=== PATIENT | female | born 1945 | race Caucasian/White ===

== ENCOUNTER 2018-11-12 15:20 | Inpatient (IN) ==
[2018-11-12] MEDS ORDERED: IOPAMIDOL 100 ML BOTTLE IV ONE (15:21)
--- NOTE | 2018-11-12 15:52 | XRay Report ---
INDICATION: Dyspnea TECHNIQUE: AP chest x-ray,portable semiupright COMPARISON: There is chest x-rays dated 10/12/2018, 06/27/2018, 06/01/2018 FINDINGS:Left lung base is poorly visualized, probably secondary to overlying soft tissues and AP portable semierect upright positioning and technique. Left basilar infiltrate is not excluded. Routine PA and lateral chest x-ray recommended when clinically appropriate. Lungs are otherwise negative. Heart size and vascularity are normal. Heart and mediastinum are negative. IMPRESSION: 1. Poor visualization of left base. Follow-up PA and lateral chest x-ray recommended when clinically appropriate 2. Otherwise negative AP chest x-ray Interpreted and Authenticated by: Rob Singh 11/12/18
[2018-11-12 16:40] LABS: Appearance,Urine CLOUDY; Bacteria,Urine MOD /hpf (0); Bilirubin,Urine NEG (NEG); Color,Urine YELLOW; Glucose,Urine (UA) >=500 mg/dL (NEG); Leukocyte Esterase,Urine 500 /uL (NEG); Mucus,Urine FEW /hpf (0); Protein,Urine 100 mg/dL (NEG); Specific Gravity,Urine 1.011 (1.000-1.035); Urine Blood 0.2 mg/dL (<0.03); Urine Hyaline Cast 6 /lpf (0-2); Urine RBC 8 /hpf (0-1); Urine Squamous Epithelial Cell 1 /hpf (0-4); Urine WBC > 182 /hpf (0-4); Urobilinogen,Urine NEG (NEG)
[2018-11-12] MEDS ORDERED: CIPROFLOXACIN 400 MG/200 ML BAG IV ONE (16:42)
--- NOTE | 2018-11-12 16:44 | Emergency Department Note ---
Fever HPI - General Chief Complaint: Shortness of Breath/Dyspnea Stated Complaint: Hypoxia, Fever Time Seen by Provider: 11/12/18 16:05 Source: EMS Mode of arrival: EMS Limitations: altered mental status, physical limitation - History of Present Illness HPI Narrative: 73-year-old female presents with altered LOC, hypoxia, shortness of breath, intermittent abdominal pain. Onset yesterday possibly however patient is extremely poor historian, confused, difficult to get information from. EMS reports that they were called to the home after the patient reported being sick for a week. Patient denies being started on new in any new medications at [facility] however is confused and the story is frequently changing and very hard to follow. - Related Data Home Medications Medication Instructions Recorded Confirmed lorazepam 1 mg tablet 1 mg PO QHS tab 08/02/18 10/12/18 Previous Rx's Medication Instructions Recorded amlodipine 5 mg tablet 5 mg PO QDAY #90 tab 08/02/18 citalopram 20 mg tablet 20 mg PO QDAY #90 tab 08/02/18 clopidogrel 75 mg tablet 75 mg PO QDAY #90 tab 08/02/18 dexlansoprazole 30 mg 30 mg PO QDAY #90 cap 08/02/18 capsule,biphase delayed release glipizide 10 mg tablet 10 mg PO QDAY #90 tab 08/02/18 loratadine 10 mg tablet 10 mg PO QDAY PRN #90 tab 08/02/18 losartan 50 mg tablet 50 mg PO QDAY #90 tab 08/02/18 sennosides 8.6 mg tablet 8.6 mg PO QHS PRN #90 tab 08/02/18 simvastatin 10 mg tablet 10 mg PO QHS #90 tab 08/02/18 ferrous sulfate 325 mg (65 mg 325 mg PO QDAY #90 tab 09/10/18 iron) tablet methocarbamol 500 mg tablet See Rx Instructions PO Q6H PRN #30 09/19/18 tab nitrofurantoin 100 mg PO BID #20 cap 10/08/18 monohydrate/macrocrystals 100 mg capsule pregabalin 300 mg capsule 300 mg PO BID #60 cap 10/11/18 albuterol sulfate HFA 90 2 puff INHALATION Q6H PRN #8.5 g 10/12/18 mcg/actuation aerosol inhaler trazodone 150 mg tablet 300 mg PO QHS #180 tab 10/18/18 tramadol 50 mg tablet 100 mg PO TID PRN #180 tab 10/31/18 atenolol 25 mg tablet 12.5 mg PO QHS #45 tab 11/12/18 Allergies Allergy/AdvReac Type Severity Reaction Status Date / Time aspirin Allergy Unknown unknown Verified 11/12/18 15:27 celecoxib [From Celebrex] Allergy Unknown unknown Verified 11/12/18 15:27 indomethacin Allergy Unknown unknown Verified 11/12/18 15:27 lisinopril Allergy Unknown unknown Verified 11/12/18 15:27 nabumetone [From Relafen] Allergy Unknown unknown Verified 11/12/18 15:27 oxybutynin Allergy Unknown unknown Verified 11/12/18 15:27 Review of Systems All systems ED: reviewed and negative except as stated. Fever PMH - Past Medical History [facility] Narrative: Medical History (Last Reviewed 10/12/18 @ 11:49 by Gladys Hair PA-C) Urge incontinence of urine (Chronic) Urinary incontinence (Chronic) Dermatographia (Chronic) Paresthesia (Chronic) Insomnia (Chronic) GERD (gastroesophageal reflux disease) (Chronic) Paroxysmal supraventricular tachycardia (Chronic) Hyperlipidemia (Chronic) Dermatitis (Chronic) Perleche (Chronic) Seborrheic keratosis (Chronic) Anxiety disorder (Chronic) Conversion disorder (Chronic) Developmental delay (Chronic) Osteoarthritis (Chronic) Lumbar radiculopathy (Chronic) Onychomycosis (Chronic) PVD (peripheral vascular disease) (Chronic) Diabetic peripheral neuropathy (Chronic) Diabetes mellitus, type II (Chronic) Rectal bleeding (Chronic) Mastalgia (Chronic) Patellar tendon rupture (Chronic) Foot deformity (Chronic) Tendinitis (Chronic) Menopausal syndrome (Chronic) Overactive bladder (Chronic) Past Surgical History (Last Reviewed 10/12/18 @ 11:49 by Gladys Hair PA-C) History of bilateral knee replacement (Chronic) History of knee surgery (Acute) Medical history: Reports: DM, GERD, hyperlipidemia, arthritis, hypertension, other, CVA, obesity Psychiatric history: Reports: anxiety, depression - Social History smoking status: Never smoker Alcohol use: Reports: None Drug use: Reports: none. Denies: marijuana Physical Exam Limitations: altered mental status, physical limitation General appearance: alert, in no apparent distress Head: atraumatic, normocephalic, normal inspection Eye: Present: normal appearance, PERRL. Absent: conjunctival injection ENT: normal exam, normal oropharynx, mucous membranes moist, TM's normal bilaterally, normal external ear exam Neck: Present: normal inspection, trachea midline. Absent: tenderness, lymphadenopathy Chest: Present: symmetric chest wall rise Respiratory: Present: wheezes (Expiratory wheezing and diminished in the bases bilaterally), other (Oxygen saturations were 70% on EMS arrival). Absent: respiratory distress, rales/crackles, accessory muscle use Cardiovascular: Present: regular rate, normal heart sounds External: Present: other (Please see urinanalysis) Neurological: Present: alert. Absent: oriented X3 (Not alert to person, place, time, or situation, pleasantly confused) Psychiatric: Present: normal affect, normal mood Skin: Present: warm, dry, intact, normal color. Absent: rash, cyanosis, diaphoresis, erythema Course Course Narrative: @[address] Suazo, hopsitalist, who agrees to admit this patient however we are awaiting CT report. Also started Zosyn. Vital Signs Temperature 101.2 F H 11/12/18 15:22 Pulse Rate 86 11/12/18 15:22 Respiratory Rate 24 H 11/12/18 15:22 Blood Pressure 126/84 11/12/18 15:22 Pulse Oximetry (%) 88 L 11/12/18 15:22 Temperature 101.2 F H 11/12/18 20:08 Pulse Rate 68 11/12/18 20:08 Respiratory Rate 17 11/12/18 20:08 Blood Pressure 106/44 11/12/18 20:08 Pulse Oximetry (%) 95 11/12/18 20:08 Fever - Lab Data Lab results reviewed: Yes I reviewed the patient's lab results. Result diagrams: 11/12/18 17:37 11/12/18 15:55 Lab Results 11/12/18 11/12/18 11/12/18 Range/Units 15:55 15:55 15:55 WBC TNP RBC TNP Hgb TNP Hct TNP POC Hct (36.0-48.0) % MCV TNP MCH TNP MCHC TNP RDW TNP Plt Count TNP MPV TNP Total Counted TNP Seg Neutrophils % TNP Band Neutrophils % TNP Lymphocytes % TNP Monocytes % (Manual) TNP Eosinophils % (Manual) TNP Basophils % (Manual) TNP Metamyelocytes % TNP Myelocytes % TNP Promyelocytes % TNP Nucleated RBCs TNP Differential Comment TNP WBC Morphology TNP Hypersegmented Polys TNP Vacuolated Neuts TNP Immature Lymphocytes TNP Plasmacytoid Lymphs TNP Reactive Lymphocytes TNP Vacuolated Monocytes TNP Blast Cells TNP Plasma Cells TNP Smudge Cells TNP Pyknotic Cells TNP Other Cell Type TNP Toxic Granulation TNP Dohle Bodies TNP Pelger-Huet Anomaly TNP Radha Rods TNP WBC Morphology Comment Tnpt Platelet Estimate TNP RBC Morphology TNP Polychromasia TNP Hypochromasia TNP Poikilocytosis TNP Basophilic Stippling TNP Anisocytosis TNP Microcytosis TNP Macrocytosis TNP Spherocytes TNP Pappenheimer Bodies TNP Target Cells TNP Tear Drop Cells TNP Ovalocytes TNP Stomatocytes TNP Helmet Cells TNP [place] Bodies TNP [place] Cells TNP Acanthocytes (Spur) TNP Rouleaux TNP RBC Fragments TNP VBG Lactic Acid 3.1 H (0.5-2.0) mmol/L POC Sodium (133-145) mmol/L Sodium 140 (133-145) mmol/L POC Potassium (3.3-5.1) mmol/L Potassium 4.2 (3.3-5.1) mmol/L POC Chloride (96-108) mmol/L Chloride 103 (96-108) mmol/L Carbon Dioxide 26 (22-30) mmol/L POC Total CO2 (22-30) mmol/L Anion Gap 11.0 (8-16) POC BUN (8-23) mg/dl BUN 28 H (8-23) mg/dl Creatinine 1.1 (0.6-1.1) mg/dl POC Creatinine (0.6-1.1) mg/dl GFR Calculation 50 Glucose 244 H (70-105) mg/dL POC Glucose (70-105) mg/dL Calcium 9.7 (8.6-10.4) mg/dl POC WB Ioniz Calcium (1.16-1.32) mmol/L Total Bilirubin 0.9 (0.0-1.0) mg/dL AST 18 (0-37) U/l ALT 14 (0-40) U/l Alkaline Phosphatase 121 H (39-117) U/L Troponin T (0-0.03) ng/ml Total Protein 7.4 (5.9-8.4) gm/dL Albumin 3.7 (3.2-5.2) gm/dL Globulin 3.7 (2.2-3.7) gm/dL Albumin/Globulin Ratio 1.0 (1.0-2.3) Urine Color Urine Appearance Urine pH (5.0-9.0) Ur Specific [place] (1.000-1.035) Urine Protein (NEG) mg/dL Urine Glucose (UA) (NEG) mg/dL Urine Ketones (NEG) mg/dL Urine Occult Blood (<0.03) mg/dL Urine Nitrate (NEG) Urine Bilirubin (NEG) mg/dL Urine Urobilinogen (NEG) mg/dL Ur Leukocyte Esterase (NEG) /uL Urine RBC (0-1) /hpf Urine WBC (0-4) /hpf Ur Squamous Epith Cells (0-4) /hpf Urine Bacteria (0) /hpf Hyaline Casts (0-2) /lpf Urine Mucus (0) /hpf Ur Culture Indicated? 11/12/18 11/12/18 11/12/18 Range/Units 16:05 16:50 17:37 WBC RBC Hgb Hct POC Hct 32.0 L (36.0-48.0) % MCV MCH MCHC RDW Plt Count MPV Total Counted Seg Neutrophils % Band Neutrophils % Lymphocytes % Monocytes % (Manual) Eosinophils % (Manual) Basophils % (Manual) Metamyelocytes % Myelocytes % Promyelocytes % Nucleated RBCs Differential Comment WBC Morphology Hypersegmented Polys Vacuolated Neuts Immature Lymphocytes Plasmacytoid Lymphs Reactive Lymphocytes Vacuolated Monocytes Blast Cells Plasma Cells Smudge Cells Pyknotic Cells Other Cell Type Toxic Granulation Dohle Bodies Pelger-Huet Anomaly Radha Rods WBC Morphology Comment Platelet Estimate RBC Morphology Polychromasia Hypochromasia Poikilocytosis Basophilic Stippling Anisocytosis Microcytosis Macrocytosis Spherocytes Pappenheimer Bodies Target Cells Tear Drop Cells Ovalocytes Stomatocytes Helmet Cells [place] Bodies Maria [place] Cells Acanthocytes (Spur) Rouleaux RBC Fragments VBG Lactic Acid (0.5-2.0) mmol/L POC Sodium 141 (133-145) mmol/L Sodium (133-145) mmol/L POC Potassium 3.8 (3.3-5.1) mmol/L Potassium (3.3-5.1) mmol/L POC Chloride 109 H (96-108) mmol/L Chloride (96-108) mmol/L Carbon Dioxide (22-30) mmol/L POC Total CO2 22 (22-30) mmol/L Anion Gap (8-16) POC BUN 28 H (8-23) mg/dl BUN (8-23) mg/dl Creatinine (0.6-1.1) mg/dl POC Creatinine 0.9 (0.6-1.1) mg/dl GFR Calculation Glucose (70-105) mg/dL POC Glucose 219 H (70-105) mg/dL Calcium (8.6-10.4) mg/dl POC WB Ioniz Calcium 1.05 L (1.16-1.32) mmol/L Total Bilirubin (0.0-1.0) mg/dL AST (0-37) U/l ALT (0-40) U/l Alkaline Phosphatase (39-117) U/L Troponin T < 0.01 (0-0.03) ng/ml Total Protein (5.9-8.4) gm/dL Albumin (3.2-5.2) gm/dL Globulin (2.2-3.7) gm/dL Albumin/Globulin Ratio (1.0-2.3) Urine Color Yellow Urine Appearance Cloudy Urine pH 5.0 (5.0-9.0) Ur Specific [place] 1.011 (1.000-1.035) Urine Protein 100 A (NEG) mg/dL Urine Glucose (UA) >=500 A (NEG) mg/dL Urine Ketones Neg (NEG) mg/dL Urine Occult Blood 0.2 A (<0.03) mg/dL Urine Nitrate Pos A (NEG) Urine Bilirubin Neg (NEG) mg/dL Urine Urobilinogen Neg (NEG) mg/dL Ur Leukocyte Esterase 500 A (NEG) /uL Urine RBC 8 H (0-1) /hpf Urine WBC > 182 H (0-4) /hpf Ur Squamous Epith Cells 1 (0-4) /hpf Urine Bacteria Mod A (0) /hpf Hyaline Casts 6 H (0-2) /lpf Urine Mucus Few (0) /hpf Ur Culture Indicated? Yes 11/12/18 Range/Units 17:37 WBC 6.4 RBC 3.63 L Hgb 10.2 L Hct 31.7 L POC Hct (36.0-48.0) % MCV 87.2 MCH 28.2 MCHC 32.3 RDW 15.2 H Plt Count 111 L MPV 10.6 H Total Counted 100 Seg Neutrophils % 80 H Band Neutrophils % 8 Lymphocytes % 8 L Monocytes % (Manual) 4 Eosinophils % (Manual) Basophils % (Manual) Metamyelocytes % Myelocytes % Promyelocytes % Nucleated RBCs Differential Comment WBC Morphology Hypersegmented Polys Vacuolated Neuts Immature Lymphocytes Plasmacytoid Lymphs Reactive Lymphocytes Vacuolated Monocytes Blast Cells Plasma Cells Smudge Cells Pyknotic Cells Other Cell Type Toxic Granulation Dohle Bodies Pelger-Huet Anomaly Radha Rods WBC Morphology Comment Platelet Estimate Decreased RBC Morphology Normal Polychromasia Hypochromasia Poikilocytosis Basophilic Stippling Anisocytosis Microcytosis Macrocytosis Spherocytes Pappenheimer Bodies Target Cells Tear Drop Cells Ovalocytes Stomatocytes Helmet Cells [place] Bodies Maria [place] Cells Acanthocytes (Spur) Rouleaux RBC Fragments VBG Lactic Acid (0.5-2.0) mmol/L POC Sodium (133-145) mmol/L Sodium (133-145) mmol/L POC Potassium (3.3-5.1) mmol/L Potassium (3.3-5.1) mmol/L POC Chloride (96-108) mmol/L Chloride (96-108) mmol/L Carbon Dioxide (22-30) mmol/L POC Total CO2 (22-30) mmol/L Anion Gap (8-16) POC BUN (8-23) mg/dl BUN (8-23) mg/dl Creatinine (0.6-1.1) mg/dl POC Creatinine (0.6-1.1) mg/dl GFR Calculation Glucose (70-105) mg/dL POC Glucose (70-105) mg/dL Calcium (8.6-10.4) mg/dl POC WB Ioniz Calcium (1.16-1.32) mmol/L Total Bilirubin (0.0-1.0) mg/dL AST (0-37) U/l ALT (0-40) U/l Alkaline Phosphatase (39-117) U/L Troponin T (0-0.03) ng/ml Total Protein (5.9-8.4) gm/dL Albumin (3.2-5.2) gm/dL Globulin (2.2-3.7) gm/dL Albumin/Globulin Ratio (1.0-2.3) Urine Color Urine Appearance Urine pH (5.0-9.0) Ur Specific [place] (1.000-1.035) Urine Protein (NEG) mg/dL Urine Glucose (UA) (NEG) mg/dL Urine Ketones (NEG) mg/dL Urine Occult Blood (<0.03) mg/dL Urine Nitrate (NEG) Urine Bilirubin (NEG) mg/dL Urine Urobilinogen (NEG) mg/dL Ur Leukocyte Esterase (NEG) /uL Urine RBC (0-1) /hpf Urine WBC (0-4) /hpf Ur Squamous Epith Cells (0-4) /hpf Urine Bacteria (0) /hpf Hyaline Casts (0-2) /lpf Urine Mucus (0) /hpf Ur Culture Indicated? - Radiology Data Radiology results reviewed: Yes I reviewed the patient's radiology results. Disposition Pt seen by CHEF & OWNER/PA only: No Clinical Impression: UTI (urinary tract infection), Hypoxia, SOB (shortness of breath), Chest pain Disposition: Xfer As Inpt ([facility]) Condition: Fair Time of Disposition: 21:45
[2018-11-12 16:45] LABS: ALT/SGPT 14 U/l (0-40); Albumin 3.7 gm/dL (3.2-5.2); Alkaline Phosphatase 121 U/L (39-117); Blood Urea Nitrogen 28 mg/dl (8-23)
[2018-11-12] MEDS ORDERED: 0.9 % SODIUM CHLORIDE 1,000 ML IV ONE ×3 (17:54→18:13)
[2018-11-12] MEDS ORDERED: PIPERACILLIN SODIUM/TAZOBACTAM 3.375 GM in DEXTROSE 5% IN WATER 50 ML IV ONE (17:56)
[2018-11-12] MEDS ORDERED: VANCOMYCIN PER PHARMACY IV ONE ×2 (18:25→20:33)
[2018-11-12 18:27] LABS: Mean Cell Volume 87.2 fL (80.0-100.0); Mean Corpuscular HGB Conc 32.3 g/dL (31.0-36.0); Platelet Count 111 K/mcL (140-440); RBC 3.63 M/mcL (4.00-5.20); Red Cell Distribution Width 15.2 % (11.5-14.5)
[2018-11-12] MEDS ORDERED: 0.9 % SODIUM CHLORIDE 250 ML IV SCH (18:30)
[2018-11-12] MEDS ORDERED: NOREPINEPHRINE BITARTRATE 8 MG in 0.9 % SODIUM CHLORIDE 242 ML IV SCH (18:30)
[2018-11-12 18:59] LABS: Band Neutrophils % 8 % (0-10); Lymphocytes % 8 % (15-49); Monocytes % (Manual) 4 % (1-12); Platelet Estimate DECREASED (NORMAL); RBC Morphology NORMAL (NORMAL); Segmented Neutrophils % 80 % (38-78)
--- NOTE | 2018-11-12 19:16 | Cat Scan Report ---
CLINICAL INFORMATION: Hypoxia. Elevated lactic acid. Abdominal pain. TECHNIQUE: Axial images through the chest, abdomen, pelvis. 90 mL intravenous contrast material injected. Oral contrast material was not administered. COMPARISON: Previous chest x-ray dated 11/12/2018 and 10/12/2018. Previous chest CT scan dated 03/30/2018. Previous abdominal CT scan dated 06/27/2018. FINDINGS: Chest: Suboptimal breath-hold with some motion artifact. Mild groundglass infiltrate in the left lung apex. Findings are nonspecific. Small focal area of pneumonia is suspected. Lungs are otherwise negative. No parenchymal consolidation. No pulmonary parenchymal mass. No definite bronchiectasis. There is no honeycombing or diverticular change. No significant pleural effusion. There is no pericardial effusion. No pathologic hilar or mediastinal lymphadenopathy. No axillary adenopathy. Thoracic spine is negative. No compression deformities. No lytic lesions. No sternal or rib lesions. Abdomen, pelvis: Suboptimal evaluation as the arms are down at the patient's side causing streak artifact. Dilated right renal pelvis and proximal right hydroureter. There is mild ureteral wall enhancement and periureteral infiltration. No detectable ureteral calculus. There is no bladder stone. Urinary bladder is not distended and there is a Posey catheter in place. Findings are suspicious for recent passage of a ureteral calculus although there is no nonobstructing calculus identified within the right kidney on prior examination. No left hydronephrosis or hydroureter. No solid or cystic renal mass. No CT evidence for pyelonephritis. There is mild right perinephric stranding which is also a new finding since previous examination. Negative liver. No focal intrahepatic abnormality. There are surgical clips in the gallbladder fossa. No dilated bile ducts. Pancreas is negative. No pancreatic mass. No peripancreatic abnormality. Negative spleen. No splenomegaly. Negative adrenal glands. There is contrast material or noncontrast increased fecal density within the colon. No detectable colonic mass. No diverticulitis. Negative appendix. No evidence for appendicitis. Small bowel is negative. There is no mechanical small bowel obstruction No retroperitoneal or mesenteric adenopathy. Densely calcified abdominal aorta. No abdominal aortic aneurysm. There is calcification of the origin of the superior mesenteric artery but no stenosis. There is calcification at the origin of the celiac trunk and probable hemodynamically significant stenosis. Superior mesenteric vein and portal vein are patent and normal. Uterus is not identified. There is no adnexal mass. No intra-abdominal abscess. No free intraperitoneal fluid. No pneumoperitoneum. No biliary or portal venous gas. No pneumatosis. No lumbar compression fractures. No sacral or pelvic fracture. No lytic lesion. No inguinal or abdominal wall hernia. No abdominal wall fluid collection. IMPRESSION: 1. Dilated right renal pelvis and proximal right ureter. There is ureteral wall enhancement and mild periureteral infiltration. Recent passage of a right ureteral stone is possible. 2. Mild groundglass infiltrate in the left lung apex. Small focus of pneumonia suspected 3. Previous cholecystectomy 4. No intra-abdominal abscess Interpreted and Authenticated by: Rob Singh 11/12/18
--- NOTE | 2018-11-12 19:17 | Internal Med History&Physical ---
Medical - H&P: [facility] Patient information: Note initiated : 11/12/18 at 7:14 pm Service Date, if different from initiated Date: [] Patient: Izzy Casey a 73 y/o F admitted on for Hypoxia, Fever. Chief Complaint: [] Chief complaint: AMS, hypotention History of present illness: Ms. Casey is a 73 year old F who lives alone with the help of caregiver provided to [employer]. By history patient is developmental delayed. Over the last few days patient has been getting progressively weak fatigued and unable to function. Today she she was brought into the ER with symptoms of altered mental status, confusion and gradual progression of her weakness over the last 1 week. Most of the history is obtained from review of medical records. Patient is unable to provide any history. No family members are present. Initial workup was significant for septic shock secondary to significant pyuria. Patient was started on crystalloid/broad antibiotics after cultures were drawn. He was initiated on vasopressors. Hospitalist service was consulted. Initial venous lactate is over 3. At the time of evaluation patient is barely able to open eyes. She is very drowsy. Her initial sofa score is 3. Te-Moak score 16. Patient will be admitted to ICU until further history could be obtained, she has been started on broad antibiotic coverage/pressure/crystalloids and undergoing sepsis management protocol. A central line has been secured by anesthesia On arrival to ICU patient's systolics start dropping and was started on pressors. Ongoing crystalloid/broad antibiotic coverage. Ongoing sepsis management per guidelines Review of systems 10 point review of system was attempted and patient was able to provide answers some of the questions, denies headache photophobia, denies chest pain shortness of breath. Medical - H&P: PMH Medical history: Urge incontinence of urine (Chronic) Urinary incontinence (Chronic) Dermatographia (Chronic) Paresthesia (Chronic) Insomnia (Chronic) GERD (gastroesophageal reflux disease) (Chronic) Paroxysmal supraventricular tachycardia (Chronic) Hyperlipidemia (Chronic) Dermatitis (Chronic) Perleche (Chronic) Seborrheic keratosis (Chronic) Anxiety disorder (Chronic) Conversion disorder (Chronic) Developmental delay (Chronic) Osteoarthritis (Chronic) Lumbar radiculopathy (Chronic) Onychomycosis (Chronic) PVD (peripheral vascular disease) (Chronic) Diabetic peripheral neuropathy (Chronic) Diabetes mellitus, type II (Chronic) Rectal bleeding (Chronic) Mastalgia (Chronic) Patellar tendon rupture (Chronic) Foot deformity (Chronic) History of bilateral knee replacement (Chronic) Tendinitis (Chronic) Menopausal syndrome (Chronic) Overactive bladder (Chronic) Surgical History History of knee surgery (Acute) Family History Mother Type 2 diabetes mellitus Arteriosclerosis of coronary artery Aunt Type 2 diabetes mellitus Malignant neoplasm Social History marital status: smoking status: Never smoker alcohol intake frequency: does not drink substance use type: does not use Medical - H&P: Meds Home Medications Medication Instructions Recorded Confirmed Type amlodipine 5 mg tablet 5 mg PO QDAY #90 tab 08/02/18 11/13/18 Rx clopidogrel 75 mg tablet 75 mg PO QDAY #90 tab 08/02/18 11/13/18 Rx dexlansoprazole 30 mg 30 mg PO QDAY #90 cap 08/02/18 11/12/18 Rx capsule,biphase delayed release loratadine 10 mg tablet 10 mg PO QDAY PRN #90 tab 08/02/18 11/13/18 Rx lorazepam 1 mg tablet 1 mg PO QHS tab 08/02/18 11/13/18 History losartan 50 mg tablet 50 mg PO QDAY #90 tab 08/02/18 11/13/18 Rx sennosides 8.6 mg tablet 8.6 mg PO QHS PRN #90 tab 08/02/18 10/12/18 Rx simvastatin 10 mg tablet 10 mg PO QHS #90 tab 08/02/18 11/13/18 Rx methocarbamol 500 mg tablet See Rx Instructions PO Q6H PRN #30 09/19/18 10/12/18 Rx tab nitrofurantoin 100 mg PO BID #20 cap 10/08/18 10/12/18 Rx monohydrate/macrocrystals 100 mg capsule pregabalin 300 mg capsule 300 mg PO BID #60 cap 10/11/18 11/13/18 Rx albuterol sulfate HFA 90 2 puff INHALATION Q6H PRN #8.5 g 10/12/18 11/12/18 Rx mcg/actuation aerosol inhaler trazodone 150 mg tablet 300 mg PO QHS #180 tab 10/18/18 11/13/18 Rx atenolol 25 mg tablet 12.5 mg PO QHS #45 tab 11/12/18 11/13/18 Rx Citalopram Hydrobromide 40 mg PO QDAY 11/13/18 11/13/18 History [Citalopram HBr] Dexlansoprazole [Dexilant] 30 mg PO DAILY 11/13/18 11/13/18 History Ferrous Sulfate 325 mg PO QHS 11/13/18 11/13/18 History Furosemide [Lasix] 20 mg PO QAM 11/13/18 11/13/18 History Pregabalin [Lyrica] 150 mg PO BID 11/13/18 11/13/18 History glipiZIDE [Glucotrol] 10 mg PO QHS 11/13/18 11/13/18 History sitaGLIPtin [Januvia] 100 mg PO DAILY 11/13/18 11/13/18 History traMADol [Ultram] 100 mg PO TID 11/13/18 11/13/18 History Allergies Allergy/AdvReac Type Severity Reaction Status Date / Time aspirin Allergy Unknown unknown Verified 11/12/18 15:27 celecoxib [From Celebrex] Allergy Unknown unknown Verified 11/12/18 15:27 indomethacin Allergy Unknown unknown Verified 11/12/18 15:27 lisinopril Allergy Unknown unknown Verified 11/12/18 15:27 nabumetone [From Relafen] Allergy Unknown unknown Verified 11/12/18 15:27 oxybutynin Allergy Unknown unknown Verified 11/12/18 15:27 Medical - H&P: Exam - Constitutional Vitals: Temp Pulse Resp BP Pulse Ox 101.2 F H 73 24 H 92/64 91 11/12/18 15:22 11/12/18 17:58 11/12/18 15:22 11/12/18 18:30 11/12/18 17:58 General appearance: moderate distress (Confused), morbidly obese Exam: Head normocephalic Eye movements symmetrical Oral cavity dry No ear nose discharge Neck no lymphadenopathy S1-S2 regular rhythm Chest clear to auscultation Abdomen soft nontender Lower extremity no cyanosis clubbing Skin no suspicious lesion Drowsy fatigued and lethargic Neuro moving all 4 extremities to pain stimulus Medical - H&P: Reslt - Labs CBC & Chem 7: 11/13/18 03:32 11/13/18 03:32 Labs: Short CBC 11/12/18 11/12/18 Range/Units 15:55 17:37 WBC TNP 6.4 Hgb TNP 10.2 L Hct TNP 31.7 L Plt Count TNP 111 L BMP 11/12/18 15:55 Sodium 140 Potassium 4.2 Chloride 103 Carbon Dioxide 26 BUN 28 H Creatinine 1.1 Glucose 244 H Calcium 9.7 Cardiac Enzymes 11/12/18 Range/Units 17:37 Troponin T < 0.01 (0-0.03) ng/ml Liver Function 11/12/18 Range/Units 15:55 Total Bilirubin 0.9 (0.0-1.0) mg/dL AST 18 (0-37) U/l ALT 14 (0-40) U/l Alkaline Phosphatase 121 H (39-117) U/L Albumin 3.7 (3.2-5.2) gm/dL Urine 11/12/18 Range/Units 16:05 Urine Color Yellow Urine Appearance Cloudy Urine pH 5.0 (5.0-9.0) Ur Specific [place] 1.011 (1.000-1.035) Urine Protein 100 A (NEG) mg/dL Urine Glucose (UA) >=500 A (NEG) mg/dL Medical - H&P: A/P (1) Septic shock Current visit: Yes Status: Acute * Septic shock-multiple endorgan dysfunction including altered mental status. Likely source. Broad antibiotic coverage/crystalloid/pressors and ma nagement per guidelines. Trend venous lactate. Central line insertion with bolus crystalloids. ICU admit * Complicated UTI with acute pyelonephritis -initiate broad antibiotic coverage until cultures available. * Left apical pneumonia-continue broad antibiotic coverage * DM type II continue basal prandial insulin * Anxiety disorder continue citalopram * History of CAD continue Plavix * history of hypertension-continue medications on hold until his septic shock resolves * Full code * Prophylaxis heparin Plan * ICU admit in light of branches score over 15, very high risk mortality * Vasopressors * Broad antibiotic coverage * Pancultures * Trend venous lactate * Septic shock management per guidelines Critical care time spent over 35 minutes on management of septic shock in addition to 70 minutes spent in history and physical, discussion with the ER physician, reviewing labs imaging and medical records
[2018-11-12] MEDS ORDERED: 0.9 % SODIUM CHLORIDE 10 ML SYRINGE IV PRN (19:29)
--- NOTE | 2018-11-12 19:48 | Procedure Note ---
Procedures - Central Line Placement Right SC Consent obtained: verbal consent, written consent Date of Procedure: 11/12/18 Time out performed: Yes Patient placed on monitor/pulse ox: Yes prep: mask, sterile gown, sterile gloves, cap Central line prep: Povidone-Iodine 1%, 2% Chlorhexidine scrub, large sterile drapes applied, proper hand hygiene Local anesthesia used: lidocaine 1% Amount of anesthesia used (mls): 5 Ultrasound used for placement: No Central line lumen inserted: quad, 16 cm Post procedure: sutured in place, good blood return, all ports aspirated, flushed, capped, sterile dressing applied Post procedure x-ray: other (Awaiting pCXR) Patient tolerated procedure: well, no complications Complications: none Additional comments: Called at 1826 by Anaya for CVC placement in urosepsis patient. Christian requested line. Both Christian and/or Anaya unwilling to place CVC line, called in from home for same. Reported SBP in 80s, came prepared for A line placement, BP never less than 110, A line not medically indicated. At arrival, no equipment/supplies in room. Pt 'unable to consent' on paper consent, verbally, pt demonstrates limited understanding of procedure and was willing to proceed. Pt noted to be on Plavix. Line placed with moderate difficulty due to habitus and passage of wire. No apparent complication, pt tolerated very well. Awaiting pCXR for placement.
[2018-11-12] MEDS ORDERED: ACETAMINOPHEN 325 MG TABLET PO PRN (20:33)
[2018-11-12] MEDS ORDERED: POTASSIUM CHLORIDE 20 MEQ PACKET PO PRN (20:33)
[2018-11-12] MEDS ORDERED: ONDANSETRON 4 MG/2 ML VIAL IV PRN (20:33)
[2018-11-12] MEDS ORDERED: VANCOMYCIN PER PHARMACY IV SCH (20:33)
[2018-11-12] MEDS ORDERED: MAGNESIUM SULFATE 2 GM/50 ML BAG IV PRN (20:33)
[2018-11-12] MEDS ORDERED: ACETAMINOPHEN 1,000 MG/100 ML BOTTLE IV PRN (20:33)
[2018-11-12] MEDS: PIPERACILLIN SODIUM/TAZOBACTAM 3.375 GM in DEXTROSE 5% IN WATER 50 ML IV SCH (20:42)
[2018-11-12] MEDS ORDERED: NOREPINEPHRINE BITARTRATE 4 MG/4 ML VIAL IV ONE (20:54)
[2018-11-12] MEDS: 0.9 % SODIUM CHLORIDE 250 ML IV SCH (21:01)
[2018-11-12] MEDS: NOREPINEPHRINE BITARTRATE 16 MG in 0.9 % SODIUM CHLORIDE 234 ML IV SCH (21:01)
[2018-11-12] MEDS: HEPARIN 5,000 UNIT/ML VIAL SQ SCH (21:02)
[2018-11-12] MEDS: 0.9 % SODIUM CHLORIDE 1,000 ML IV SCH (21:02)
[2018-11-12] MEDS: 0.9 % SODIUM CHLORIDE 10 ML SYRINGE IV SCH ×2 (21:03)
[2018-11-12] MEDS: DOCUSATE SODIUM 100 MG CAPSULE PO SCH (21:03)
[2018-11-12] MEDS: SENNOSIDES/DOCUSATE SODIUM 1 TAB TABLET PO SCH (21:03)
[2018-11-12] MEDS: VANCOMYCIN 1,000 MG in 0.9 % SODIUM CHLORIDE 250 ML IV SCH (22:20)
[2018-11-13] MEDS: PIPERACILLIN SODIUM/TAZOBACTAM 3.375 GM in DEXTROSE 5% IN WATER 50 ML IV SCH ×4 (00:17→18:47)
[2018-11-13] MEDS: 0.9 % SODIUM CHLORIDE 10 ML SYRINGE IV SCH ×5 (05:43→20:49)
--- NOTE | 2018-11-13 06:02 | XRay Report ---
INDICATION: Right central venous catheter placement TECHNIQUE: AP chest x-ray,portable COMPARISON: Previous examinations dated 11/12/2018 and 10/12/2018 FINDINGS:Status post right central venous catheter placement. Catheter tip is at the junction of the right atrium and superior vena cava. There is no pneumothorax. There is cardiomegaly. Pulmonary vascularity is prominent and there is probable interstitial pulmonary edema. Follow-up radiographs and clinical correlation is necessary. Examination was initially interpreted by [facility] IMPRESSION: 1. Right central venous catheter with its tip the junction of the right atrium and superior vena cava. No pneumothorax 2. Probable interstitial pulmonary edema. Interpreted and Authenticated by: Rob Singh 11/13/18
[2018-11-13 06:10] LABS: Mean Cell Volume 88.3 fL (80.0-100.0); Platelet Count 136 K/mcL (140-440); RBC 3.47 M/mcL (4.00-5.20); Red Cell Distribution Width 15.5 % (11.5-14.5)
[2018-11-13 06:58] LABS: ALT/SGPT 14 U/l (0-40); Alkaline Phosphatase 64 U/L (39-117); Bilirubin,Direct < 0.2 mg/dL (0.0-0.3); Blood Urea Nitrogen 31 mg/dl (8-23); Gamma Glutamyl Transpeptidase 19 U/L (5-36); Uric Acid 6.1 mg/dL (2.5-8.0)
[2018-11-13] MEDS ORDERED: NOREPINEPHRINE BITARTRATE 8 MG in 0.9 % SODIUM CHLORIDE 242 ML IV SCH (08:30)
[2018-11-13] MEDS ORDERED: LEVOFLOXACIN 750 MG/150 ML BAG IV SCH (09:00)
[2018-11-13] MEDS: HEPARIN 5,000 UNIT/ML VIAL SQ SCH ×2 (09:12→20:48)
[2018-11-13] MEDS: 0.9 % SODIUM CHLORIDE 1,000 ML IV SCH ×4 (09:15→22:48)
[2018-11-13 09:41] LABS: Band Neutrophils % 9 % (0-10); Lymphocytes % 2 % (15-49); Monocytes % (Manual) 5 % (1-12); Platelet Estimate NORMAL (NORMAL); RBC Morphology NORMAL (NORMAL); Segmented Neutrophils % 84 % (38-78)
[2018-11-13 10:15] LABS: Hemoglobin A1C 6.6 % HGB (4.0-6.0)
[2018-11-13] MEDS: DOCUSATE SODIUM 100 MG CAPSULE PO SCH ×2 (10:24→20:47)
[2018-11-13] MEDS ORDERED: LORATADINE 10 MG TABLET PO PRN (11:05)
[2018-11-13] MEDS ORDERED: ALBUTEROL SULFATE 1 PUFF INHALER INH PRN (11:05)
[2018-11-13] MEDS: VANCOMYCIN 1,000 MG in 0.9 % SODIUM CHLORIDE 250 ML IV SCH ×2 (11:17→22:46)
[2018-11-13] MEDS: 0.9 % SODIUM CHLORIDE 250 ML IV SCH (11:20)
--- NOTE | 2018-11-13 11:34 | Internal Med Progress Note ---
Medical - PN: Subj Patient information: Note initiated : 11/13/18 at 11:31 am Service Date, if different from initiated Date: [] Patient: Izzy Casey a 73 y/o F admitted on 11/12/18 for Hypoxia, Fever. Chief Complaint: [] Interval history: Ms. Casey is a 73 year old F who lives alone with the help of caregiver provided to [employer]. By history patient is developmental delayed. Over the last few days patient has been getting progressively weak fatigued and unable to function. Today she she was brought into the ER with symptoms of altered mental status, confusion and gradual progression of her weakness over the last 1 week. Most of the history is obtained from review of medical records. Patient is unable to provide any history. No family members are present. Initial workup was significant for septic shock secondary to significant pyuria. Patient was started on crystalloid/broad antibiotics after cultures were drawn. He was initiated on vasopressors. Hospitalist service was consulted. Initial venous lactate is over 3. At the time of evaluation patient is barely able to open eyes. She is very drowsy. Her initial sofa score is 3. Radford score 16. Patient will be admitt ed to ICU until further history could be obtained, she has been started on broad antibiotic coverage/pressure/crystalloids and undergoing sepsis management protocol. A central line has been secured by anesthesia On arrival to ICU patient's systolics start dropping and was started on pressors. Ongoing crystalloid/broad antibiotic coverage. Ongoing sepsis management per guidelines 11/13-patient overnight on pressors. Improving urine output. Improving mental status change. White count at 19,000 with left shift. Lactic acid 3.1, creatinine 1.3, blood and urine cultures pending. Clinical improvement noted. On broad antibiotic coverage. - Constitutional Vitals: Vital Signs Temp Pulse Resp BP Pulse Ox 98.6 F 89 20 154/99 88 L 11/13/18 07:57 11/13/18 09:04 11/13/18 08:02 11/13/18 09:04 11/13/18 09:04 Period Temp Pulse Resp BP Sys/Paige Pulse Ox Last 24 Hr 98.3 F-101.2 F 62-89 8-24 80-161/41-108 88-99 Intake and Output 02/11/19 02/12/19 02/12/19 21:59 05:59 13:59 Intake Total 2566 50 821 Output Total 638 400 Balance 2566 -588 421 Weight 218 lb 5 oz Intake & Output: Intake & Output 11/12/18 11/13/18 11/13/18 21:59 05:59 13:59 Intake Total 2566 50 821 Output Total 638 400 Balance 2566 -588 421 Weight 218 lb 5 oz Intake: IV 2566 50 521 Sodium Chloride 0.9% 1,000 ml @ 2316 Wide Open IV BOLUS ONE Rx#: [id number] Sodium Chloride 0.9% 250 ml @ 0 0 20 mls/hr IV .[id number] [facility] Rx#: [id number] Levophed 16 mg In Sodium 0 0 71 Chloride 0.9% 234 ml @ 10 MCG/ MIN 9.38 mls/hr IV Q24H [facility] Rx# :[id number] Zosyn 3.375 gm In Dextrose 5% 50 50 50 in Water 50 ml @ 100 mls/hr IV Q6H [facility] Rx#:[id number] Vancomycin 1,000 mg In Sodium 250 Chloride 0.9% 250 ml @ 250 mls/ hr IV Q12H [facility] Rx#:[id number] Oral 300 Output: Urine Catheter Amount 593 400 Void Amount 45 Other: Urine Appearance Cloudy Clear Sediment Uretheral (Posey) Cloudy Cloudy Cloudy Urine Color Dark Yellow Dark Yellow Uretheral (Posey) Bright Yellow Straw Dark Yellow Urine Odor Normal Uretheral (Posey) Normal General appearance: cooperative, no acute distress Exam: Alert and responding to commands Urine output improving-Posey draining clear urine no telemetry events Nondistended abdomen Needed anxiety Complains of right thigh pain Medical - PN: Obj Da - Labs CBC & Chem 7: 11/13/18 03:32 11/13/18 03:32 Labs: Abnormal Lab Results 11/13/18 11/13/18 11/13/18 03:32 03:32 03:32 WBC 19.0 H RBC 3.47 L Hgb 9.8 L Hct 30.6 L POC Hct RDW 15.5 H Plt Count 136 L MPV 11.4 H Seg Neutrophils % 84 H Lymphocytes % 2 L VBG Lactic Acid POC Chloride Chloride 110 H POC BUN BUN 31 H Creatinine 1.3 H Glucose 219 H POC Glucose Hemoglobin A1c 6.6 H POC WB Ioniz Calcium Alkaline Phosphatase Albumin 3.0 L Urine Protein Urine Glucose (UA) Urine Occult Blood Urine Nitrate Ur Leukocyte Esterase Urine RBC Urine WBC Urine Bacteria Hyaline Casts 11/12/18 11/12/18 11/12/18 17:37 16:50 16:05 WBC RBC 3.63 L Hgb 10.2 L Hct 31.7 L POC Hct 32.0 L RDW 15.2 H Plt Count 111 L MPV 10.6 H Seg Neutrophils % 80 H Lymphocytes % 8 L VBG Lactic Acid POC Chloride 109 H Chloride POC BUN 28 H BUN Creatinine Glucose POC Glucose 219 H Hemoglobin A1c POC WB Ioniz Calcium 1.05 L Alkaline Phosphatase Albumin Urine Protein 100 A Urine Glucose (UA) >=500 A Urine Occult Blood 0.2 A Urine Nitrate Pos A Ur Leukocyte Esterase 500 A Urine RBC 8 H Urine WBC > 182 H Urine Bacteria Mod A Hyaline Casts 6 H 11/12/18 11/12/18 15:55 15:55 WBC RBC Hgb Hct POC Hct RDW Plt Count MPV Seg Neutrophils % Lymphocytes % VBG Lactic Acid 3.1 H POC Chloride Chloride POC BUN BUN 28 H Creatinine Glucose 244 H POC Glucose Hemoglobin A1c POC WB Ioniz Calcium Alkaline Phosphatase 121 H Albumin Urine Protein Urine Glucose (UA) Urine Occult Blood Urine Nitrate Ur Leukocyte Esterase Urine RBC Urine WBC Urine Bacteria Hyaline Casts Meds: Medications Acetaminophen (Tylenol) 650 mg PO Q4-6HP PRN PRN Reason: PAIN/FEVER > 101 Albuterol Sulfate (Ventolin) 2 puff INH Q6H PRN PRN Reason: cough, shortness of breath, wheezing Amlodipine Besylate (Norvasc) 5 mg PO QDAY [facility] Citalopram Hydrobromide (Celexa) 40 mg PO QDAY [facility] Clopidogrel Bisulfate (Plavix) 75 mg PO QDAY [facility] Docusate Sodium (Colace) 100 mg PO BID [facility] Last Admin: 11/13/18 10:24 Dose: Not Given Documented by: Furosemide (Lasix) 20 mg PO QAM [facility] Heparin Sodium (Porcine) (Heparin) 5,000 unit SQ Q12 [facility] Last Admin: 11/13/18 09:12 Dose: 5,000 unit Documented by: Sodium Chloride (Sodium Chloride 0.9%) 250 mls @ 20 mls/hr IV .[id number] [facility] Last Admin: 11/13/18 11:20 Dose: Not Given Documented by: Levofloxacin (Levaquin) 750 mg in 150 mls @ 100 mls/hr IV Q24H [facility] Last Infusion: 11/13/18 10:44 Dose: Infused Documented by: Magnesium Sulfate (Magnesium Sulfate) 2 gm in 50 mls @ 50 mls/hr IV UD PRN PRN Reason: MG = or < 1.7 Norepinephrine Bitartrate 16 (mg/ Sodium Chloride) 250 mls @ 9.38 mls/hr IV Q24H [facility]; Protocol Last Titration: 11/13/18 09:30 Dose: 0 mcg/min, 0 mls/hr Documented by: Sodium Chloride (Sodium Chloride 0.9%) 1,000 mls @ 100 mls/hr IV .Q10H [facility] Stop: 11/14/18 12:32 Last Admin: 11/13/18 09:15 Dose: Not Given Documented by: Acetaminophen (Ofirmev) 1,000 mg in 100 mls @ 200 mls/hr IV Q6HP PRN PRN Reason: PAIN/FEVER > 101 Piperacillin Sod/Tazobactam (Sod 3.375 gm/ Dextrose) 50 mls @ 100 mls/hr IV Q6H [facility] Last Infusion: 11/13/18 06:36 Dose: Infused Documented by: Vancomycin HCl 1,000 mg/ (Sodium Chloride) 250 mls @ 250 mls/hr IV Q12H [facility] Last Admin: 11/13/18 11:17 Dose: 250 mls/hr Documented by: Loratadine (Claritin) 10 mg PO QDAY PRN PRN Reason: congestion Non-Formulary Medication (Dexlansoprazole [Dexilant]) 30 mg PO DAILY [facility] Non-Formulary Medication (Pregabalin [Lyrica]) 300 mg PO BID [facility] Ondansetron HCl (Zofran) 4 mg IV Q4-6HP PRN PRN Reason: Nausea And Vomiting Last Admin: 11/13/18 10:30 Dose: 4 mg Documented by: Potassium Chloride (Klor-Con) 40 meq PO DAILYP PRN PRN Reason: K+ < 3.5 Senna/Docusate Sodium (Senna Plus Tablet) 1 tab PO HS [facility] Last Admin: 11/12/18 21:03 Dose: Not Given Documented by: Simvastatin (Zocor) 10 mg PO QHS [facility] Sitagliptin Phosphate (Januvia) 100 mg PO DAILY [facility] Sodium Chloride (Saline Flush) 10 ml IV Q12 [facility] Last Admin: 11/13/18 09:13 Dose: 10 ml Documented by: Sodium Chloride (Saline Flush) 10 ml IV UD PRN PRN Reason: FLUSH Sodium Chloride (Saline Flush) 10 ml IV Q8 [facility] Last Admin: 11/13/18 05:43 Dose: 10 ml Documented by: Tramadol HCl (Ultram) 50 mg PO TID [facility] Trazodone HCl (Desyrel) 150 mg PO QHS [facility] Vancomycin HCl (Vancomycin Per Pharmacy) 1 order IV UD [facility] Medical - PN: A/P - Time Spent With Patient Total time spent is greater than 50% in coordination of care (as documented) at patient's floor/unit and/or counseling patient: Greater than 35 minutes (Critical care time) (1) Septic shock Status: Acute Assessment and plan: * Septic shock-multiple endorgan dysfunction on presentation. However clinically improving with aggressive management per protocol including broad antibiotic coverage. Continue to wean vasopressors. Improving urine output. Improving mental status. Await cultures, Trend venous lactate. Continue ICU care * Complicated UTI /acute pyelonephritis -continue broad antibiotic coverage until cultures available. * Left apical pneumonia-continue broad antibiotic coverage * DM type II continue basal prandial insulin * Anxiety disorder continue citalopram * History of CAD continue Plavix * history of hypertension-meds on hold in light of stroke * Full code * Prophylaxis heparin Plan * ICU management/pressors * Broad antibiotic coverage * Prior medical condition on home meds except for antihypertensives * Septic shock management per guidelines Current Visit: Yes Medical - PN: Qual - VTE Deep Vein Thrombosis/Pulmonary Embolism Present on Admission: No
[2018-11-13] MEDS: traMADol 50 MG TABLET PO SCH ×2 (18:41→20:47)
[2018-11-13] MEDS: INSULIN LISPRO 1 UNIT/0.01 ML UNIT SQ SCH ×2 (18:43→20:48)
[2018-11-13] MEDS: traZODone HCL 150 MG TABLET PO SCH (20:47)
[2018-11-13] MEDS: SENNOSIDES/DOCUSATE SODIUM 1 TAB TABLET PO SCH (20:47)
[2018-11-13] MEDS: PREGABALIN 150 MG CAPSULE PO SCH (20:47)
[2018-11-13] MEDS: SIMVASTATIN 10 MG TABLET PO SCH (20:47)
[2018-11-14] MEDS: NOREPINEPHRINE BITARTRATE 16 MG in 0.9 % SODIUM CHLORIDE 234 ML IV SCH ×2 (00:04→00:05)
[2018-11-14] MEDS: 0.9 % SODIUM CHLORIDE 250 ML IV SCH ×2 (00:05→11:16)
[2018-11-14] MEDS: PIPERACILLIN SODIUM/TAZOBACTAM 3.375 GM in DEXTROSE 5% IN WATER 50 ML IV SCH ×4 (05:27→17:19)
[2018-11-14] MEDS: 0.9 % SODIUM CHLORIDE 10 ML SYRINGE IV SCH ×5 (05:31→20:14)
[2018-11-14 06:26] LABS: Mean Cell Volume 87.9 fL (80.0-100.0); Mean Corpuscular HGB Conc 32.2 g/dL (31.0-36.0); Platelet Count 94 K/mcL (140-440); RBC 3.25 M/mcL (4.00-5.20); Red Cell Distribution Width 15.4 % (11.5-14.5)
[2018-11-14 07:10] LABS: ALT/SGPT 15 U/l (0-40); Albumin 2.6 gm/dL (3.2-5.2); Albumin/Globulin Ratio 0.8 (1.0-2.3); Alkaline Phosphatase 71 U/L (39-117); Bilirubin,Direct 0.2 mg/dL (0.0-0.3); Blood Urea Nitrogen 21 mg/dl (8-23); Eosinophils % (Manual) 1 % (0-7); Gamma Glutamyl Transpeptidase 19 U/L (5-36); Lymphocytes % 6 % (15-49); Monocytes % (Manual) 10 % (1-12); Platelet Estimate DECREASED (NORMAL); RBC Morphology NORMAL (NORMAL); Segmented Neutrophils % 83 % (38-78); Uric Acid 3.2 mg/dL (2.5-8.0)
[2018-11-14] MEDS: PANTOPRAZOLE 40 MG TABLET PO SCH (08:04)
[2018-11-14] MEDS: INSULIN LISPRO 1 UNIT/0.01 ML UNIT SQ SCH ×4 (08:11→20:13)
[2018-11-14] MEDS: CITALOPRAM 20 MG TABLET PO SCH (08:21)
[2018-11-14] MEDS: FUROSEMIDE 20 MG TABLET PO SCH ×2 (08:22→09:18)
[2018-11-14] MEDS: DOCUSATE SODIUM 100 MG CAPSULE PO SCH ×2 (08:22→20:13)
[2018-11-14] MEDS: HEPARIN 5,000 UNIT/ML VIAL SQ SCH (08:22)
[2018-11-14] MEDS: PREGABALIN 150 MG CAPSULE PO SCH ×2 (08:22→20:12)
[2018-11-14] MEDS: traMADol 50 MG TABLET PO SCH ×3 (08:22→20:13)
[2018-11-14] MEDS: CLOPIDOGREL 75 MG TABLET PO SCH (08:22)
[2018-11-14] MEDS: amLODIPine 5 MG TABLET PO SCH (08:23)
[2018-11-14] MEDS: sitaGLIPtin 50 MG TABLET PO SCH (08:23)
[2018-11-14] MEDS: FUROSEMIDE 20 MG/2 ML VIAL IV SCH ×2 (09:54→15:39)
[2018-11-14] MEDS: 0.9 % SODIUM CHLORIDE 1,000 ML IV SCH (11:19)
[2018-11-14] MEDS: VANCOMYCIN 1,000 MG in 0.9 % SODIUM CHLORIDE 250 ML IV SCH ×2 (12:06→23:01)
--- NOTE | 2018-11-14 12:13 | Internal Med Progress Note ---
Medical - PN: Subj Patient information: Note initiated : 11/14/18 at 12:09 pm Service Date, if different from initiated Date: [] Patient: Izzy Casey a 73 y/o F admitted on 11/12/18 for Hypoxia, Fever. Chief Complaint: [] Interval history: Ms. Casey is a 73 year old F who lives alone with the help of caregiver provided to [employer]. By history patient is developmental delayed. Over the last few days patient has been getting progressively weak fatigued and unable to function. Today she she was brought into the ER with symptoms of altered mental status, confusion and gradual progression of her weakness over the last 1 week. Most of the history is obtained from review of medical records. Patient is unable to provide any history. No family members are present. Initial workup was significant for septic shock secondary to significant pyuria. Patient was started on crystalloid/broad antibiotics after cultures were drawn. He was initiated on vasopressors. Hospitalist service was consulted. Initial venous lactate is over 3. At the time of evaluation patient is barely able to open eyes. She is very drowsy. Her initial sofa score is 3. [place] score 16. Patient will be admitt ed to ICU until further history could be obtained, she has been started on broad antibiotic coverage/pressure/crystalloids and undergoing sepsis management protocol. A central line has been secured by anesthesia On arrival to ICU patient's systolics start dropping and was started on pressors. Ongoing crystalloid/broad antibiotic coverage. Ongoing sepsis management per guidelines 11/13-patient overnight on pressors. Improving urine output. Improving mental status change. White count at 19,000 with left shift. Lactic acid 3.1, creatinine 1.3, blood and urine cultures pending. Clinical improvement noted. On broad antibiotic coverage. 11/14-septic shock improving patient currently being weaned off Levophed. Systolics at goal. E. coli bacteremia. Pansensitive E. coli on urine culture however blood cultures sensitivity pending. Surveillance cultures performed. Patient complains of right-sided flank and lateral hip pain. Consider imaging if pain persists due to risk of hematogenous seeding of bacteria. Continue antibiotic coverage and de-escalate based on blood culture sensitivities. Patient clinically improved now alert and oriented. Improving endorgan dysfunction. White count down from 19-10.9. Platelet count is down to 94 likely secondary to heparin effect/severe sepsis early consumptive process. DC heparin and changed to Arixtra. Started on diuretics. Generalized edema from fluid resuscitation - Constitutional Vitals: Vital Signs Temp Pulse Resp BP Pulse Ox 99.3 F H 75 16 119/80 99 11/14/18 07:22 11/14/18 11:43 11/14/18 11:43 11/14/18 11:01 11/14/18 11:43 Period Temp Pulse Resp BP Sys/Paige Pulse Ox Last 24 Hr 97.4 F-99.3 F 69-84 16-20 91-164/39-81 89-99 Intake and Output 11/13/18 11/14/18 11/14/18 21:59 05:59 13:59 Intake Total 2022 314 1778 Output Total 9559 493 1858 Balance 453 -536 413 Weight 228 lb 12.8 oz Intake & Output: Intake & Output 11/13/18 11/14/18 11/14/18 21:59 05:59 13:59 Intake Total 2022 314 1778 Output Total 3080 501 3478 Balance 453 -536 413 Weight 228 lb 12.8 oz Intake: IV 8207 502 5353 Sodium Chloride 0.9% 1,000 ml @ 1000 1000 100 mls/hr IV .Q10H [facility] Rx#: [id number] Sodium Chloride 0.9% 250 ml @ 136 114 20 mls/hr IV .[id number] [facility] Rx#: [id number] Levophed 16 mg In Sodium 37 0 58 Chloride 0.9% 234 ml @ 10 MCG/ MIN 9.38 mls/hr IV Q24H [facility] Rx# :[id number] Zosyn 3.375 gm In Dextrose 5% 50 50 50 in Water 50 ml @ 100 mls/hr IV Q6H [facility] Rx#:[id number] Vancomycin 1,000 mg In Sodium 250 Chloride 0.9% 250 ml @ 250 mls/ hr IV Q12H [facility] Rx#:[id number] Oral 800 150 420 Output: Urine Catheter Amount 9341 500 5587 Other: Meal Dinner Breakfast Percent of Meal Consumed 100% 25% Urine Appearance Cloudy Clear Cloudy Sediment Uretheral (Posey) Cloudy Cloudy Clear Sediment Sediment Urine Color Bright Yellow Bright Yellow Straw Uretheral (Posey) Bright Yellow Dark Yellow Straw Urine Odor Normal Uretheral (Posey) Normal General appearance: no acute distress Exam: Alert oriented Nonlabored breathing No telemetry events Dependent lymphedema from fluids resuscitation Posey is draining clear urine Tenderness right lateral hip/flank Medical - PN: Obj Da - Labs CBC & Chem 7: 11/14/18 03:23 11/14/18 03:23 Labs: Abnormal Lab Results 11/14/18 11/14/18 11/13/18 03:23 03:23 03:32 WBC RBC 3.25 L Hgb 9.2 L Hct 28.6 L POC Hct RDW 15.4 H Plt Count 94 L MPV 11.9 H Seg Neutrophils % 83 H Lymphocytes % 6 L VBG Lactic Acid POC Chloride Chloride 112 H Anion Gap 7.0 L POC BUN BUN Creatinine Glucose 166 H POC Glucose Hemoglobin A1c 6.6 H Calcium 8.3 L POC WB Ioniz Calcium Phosphorus 1.5 L Alkaline Phosphatase Total Protein 5.7 L Albumin 2.6 L Albumin/Globulin Ratio 0.8 L Urine Protein Urine Glucose (UA) Urine Occult Blood Urine Nitrate Ur Leukocyte Esterase Urine RBC Urine WBC Urine Bacteria Hyaline Casts 11/13/18 11/13/18 11/12/18 03:32 03:32 17:37 WBC 19.0 H RBC 3.47 L 3.63 L Hgb 9.8 L 10.2 L Hct 30.6 L 31.7 L POC Hct RDW 15.5 H 15.2 H Plt Count 136 L 111 L MPV 11.4 H 10.6 H Seg Neutrophils % 84 H 80 H Lymphocytes % 2 L 8 L VBG Lactic Acid POC Chloride Chloride 110 H Anion Gap POC BUN BUN 31 H Creatinine 1.3 H Glucose 219 H POC Glucose Hemoglobin A1c Calcium POC WB Ioniz Calcium Phosphorus Alkaline Phosphatase Total Protein Albumin 3.0 L Albumin/Globulin Ratio Urine Protein Urine Glucose (UA) Urine Occult Blood Urine Nitrate Ur Leukocyte Esterase Urine RBC Urine WBC Urine Bacteria Hyaline Casts 11/12/18 11/12/18 11/12/18 16:50 16:05 15:55 WBC RBC Hgb Hct POC Hct 32.0 L RDW Plt Count MPV Seg Neutrophils % Lymphocytes % VBG Lactic Acid 3.1 H POC Chloride 109 H Chloride Anion Gap POC BUN 28 H BUN Creatinine Glucose POC Glucose 219 H Hemoglobin A1c Calcium POC WB Ioniz Calcium 1.05 L Phosphorus Alkaline Phosphatase Total Protein Albumin Albumin/Globulin Ratio Urine Protein 100 A Urine Glucose (UA) >=500 A Urine Occult Blood 0.2 A Urine Nitrate Pos A Ur Leukocyte Esterase 500 A Urine RBC 8 H Urine WBC > 182 H Urine Bacteria Mod A Hyaline Casts 6 H 11/12/18 15:55 WBC RBC Hgb Hct POC Hct RDW Plt Count MPV Seg Neutrophils % Lymphocytes % VBG Lactic Acid POC Chloride Chloride Anion Gap POC BUN BUN 28 H Creatinine Glucose 244 H POC Glucose Hemoglobin A1c Calcium POC WB Ioniz Calcium Phosphorus Alkaline Phosphatase 121 H Total Protein Albumin Albumin/Globulin Ratio Urine Protein Urine Glucose (UA) Urine Occult Blood Urine Nitrate Ur Leukocyte Esterase Urine RBC Urine WBC Urine Bacteria Hyaline Casts Meds: Medications Acetaminophen (Tylenol) 650 mg PO Q4-6HP PRN PRN Reason: PAIN/FEVER > 101 Albuterol Sulfate (Ventolin) 2 puff INH Q6HP PRN PRN Reason: COUGH, SOB, WHEEZING Amlodipine Besylate (Norvasc) 5 mg PO QDAY [facility] Last Admin: 11/14/18 08:23 Dose: Not Given Documented by: Citalopram Hydrobromide (Celexa) 40 mg PO QDAY [facility] Last Admin: 11/14/18 08:21 Dose: 40 mg Documented by: Clopidogrel Bisulfate (Plavix) 75 mg PO QDAY [facility] Last Admin: 11/14/18 08:22 Dose: 75 mg Documented by: Diagnostic Test (Pha) (Accu-Chek) 1 each FS ACHS [facility] Last Admin: 11/14/18 08:11 Dose: 1 each Documented by: Docusate Sodium (Colace) 100 mg PO BID [facility] Last Admin: 11/14/18 08:22 Dose: 100 mg Documented by: Furosemide (Lasix) 20 mg IV BIDD [facility] Last Admin: 11/14/18 09:54 Dose: 20 mg Documented by: Heparin Sodium (Porcine) (Heparin) 5,000 unit SQ Q12 [facility] Last Admin: 11/14/18 08:22 Dose: 5,000 unit Documented by: Sodium Chloride (Sodium Chloride 0.9%) 250 mls @ 20 mls/hr IV .[id number] [facility] Last Admin: 11/14/18 11:16 Dose: Not Given Documented by: Magnesium Sulfate (Magnesium Sulfate) 2 gm in 50 mls @ 50 mls/hr IV UD PRN PRN Reason: MG = or < 1.7 Norepinephrine Bitartrate 16 (mg/ Sodium Chloride) 250 mls @ 9.38 mls/hr IV Q24H [facility]; Protocol Last Titration: 11/14/18 08:32 Dose: 0 mcg/min, 0 mls/hr Documented by: Sodium Chloride (Sodium Chloride 0.9%) 1,000 mls @ 100 mls/hr IV .Q10H [facility] Stop: 11/14/18 12:32 Last Admin: 11/14/18 11:19 Dose: 100 mls/hr Documented by: Acetaminophen (Ofirmev) 1,000 mg in 100 mls @ 200 mls/hr IV Q6HP PRN PRN Reason: PAIN/FEVER > 101 Last Admin: 11/13/18 22:54 Dose: 200 mls/hr Documented by: Piperacillin Sod/Tazobactam (Sod 3.375 gm/ Dextrose) 50 mls @ 100 mls/hr IV Q6H [facility] Last Infusion: 11/14/18 07:21 Dose: Infused Documented by: Vancomycin HCl 1,000 mg/ (Sodium Chloride) 250 mls @ 250 mls/hr IV Q12H [facility] Last Admin: 11/14/18 12:06 Dose: 250 mls/hr Documented by: Insulin Human Lispro (Humalog) 0 unit SQ ACHS [facility]; Protocol Last Admin: 11/14/18 08:11 Dose: 2 units Documented by: Loratadine (Claritin) 10 mg PO DAILYP PRN PRN Reason: CONGESTION Ondansetron HCl (Zofran) 4 mg IV Q4-6HP PRN PRN Reason: Nausea And Vomiting Last Admin: 11/13/18 10:30 Dose: 4 mg Documented by: Pantoprazole Sodium (Protonix) 40 mg PO QAMAC [facility] Last Admin: 11/14/18 08:04 Dose: 40 mg Documented by: Potassium Chloride (Klor-Con) 40 meq PO DAILYP PRN PRN Reason: K+ < 3.5 Pregabalin (Lyrica) 150 mg PO BID [facility] Last Admin: 11/14/18 08:22 Dose: 150 mg Documented by: Senna/Docusate Sodium (Senna Plus Tablet) 1 tab PO HS [facility] Last Admin: 11/13/18 20:47 Dose: 1 tab Documented by: Simvastatin (Zocor) 10 mg PO QHS [facility] Last Admin: 11/13/18 20:47 Dose: 10 mg Documented by: Sitagliptin Phosphate (Januvia) 50 mg PO DAILY [facility] Last Admin: 11/14/18 08:23 Dose: 50 mg Documented by: Sodium Chloride (Saline Flush) 10 ml IV Q12 [facility] Last Admin: 11/14/18 08:23 Dose: 10 ml Documented by: Sodium Chloride (Saline Flush) 10 ml IV UD PRN PRN Reason: FLUSH Sodium Chloride (Saline Flush) 10 ml IV Q8 [facility] Last Admin: 11/14/18 05:31 Dose: 10 ml Documented by: Tramadol HCl (Ultram) 50 mg PO TID [facility] Last Admin: 11/14/18 08:22 Dose: 50 mg Documented by: Trazodone HCl (Desyrel) 150 mg PO HS [facility] Last Admin: 11/13/18 20:47 Dose: 150 mg Documented by: Vancomycin HCl (Vancomycin Per Pharmacy) 1 order IV UD [facility] Medical - PN: A/P - Time Spent With Patient Total time spent is greater than 50% in coordination of care (as documented) at patient's floor/unit and/or counseling patient: 25 - 35 minutes (Critical care time) (1) Septic shock Status: Acute Assessment and plan: * E. coli bacteremia-surveillance cultures pending. Continue broad antibiotic coverage and de-escalate based on sensitivities * Septic shock-clinically improving. Almost off pressors. Multiple endorgan dysfunction on presentation however clinically resolved. Improving mental status. E. coli and blood cultures. Surveillance cultures pending trend venous lactate. Continue ICU care * Complicated E. coli UTI /acute pyelonephritis -de-escalate antibiotics in 24 hours. Renal ultrasound to rule out obstructive uropathy * Left apical pneumonia-clinically improving on broad antibiotic coverage * Right hip/flank pain-likely secondary to nephrolithiasis * DM type II continue basal prandial insulin * Anxiety disorder continue citalopram * History of CAD continue Plavix * history of hypertension-meds on hold in light of stroke * Full code * Prophylaxis heparin Plan * Wean pressors * Surveillance cultures * Renal ultrasound to rule out obstructive uropathy * De-escalate antibiotic cultures based on sensitivities * Prior medical condition on home meds except for antihypertensives Current Visit: Yes Medical - PN: Qual - VTE Deep Vein Thrombosis/Pulmonary Embolism Present on Admission: No
--- NOTE | 2018-11-14 13:50 | Ultrasound Report ---
CLINICAL INFORMATION: Previous CT scan demonstrated dilatation of right renal pelvis and proximal ureter. Findings were felt to be consistent with recently passed stone TECHNIQUE: Grayscale and color flow Doppler spectral imaging COMPARISON: CT scan of the chest, abdomen, pelvis dated 11/12/2018 FINDINGS: Right kidney measures 12.6 x 5.7 x 5.3 cm. Left kidney measures 12.1 x 6.0 x 5.2 cm. No solid or cystic mass. There is no hydronephrosis. Normal sinus and cortical echoes. No detectable calculi. Sonographic appearance is normal and there is no right hydronephrosis or renal pelvic enlargement. Proximal ureter is not well-visualized. Urinary bladder is empty with a Posey catheter in place IMPRESSION: 1. Negative renal ultrasound 2. No hydronephrosis Interpreted and Authenticated by: Rob Singh 11/14/18
[2018-11-14] MEDS ORDERED: NOREPINEPHRINE BITARTRATE 16 MG in 0.9 % SODIUM CHLORIDE 234 ML IV PRN (15:15)
[2018-11-14] MEDS ORDERED: amLODIPine 5 MG TABLET PO ONE (16:50)
[2018-11-14] MEDS: SIMVASTATIN 10 MG TABLET PO SCH (20:13)
[2018-11-14] MEDS: SENNOSIDES/DOCUSATE SODIUM 1 TAB TABLET PO SCH (20:13)
[2018-11-14] MEDS: traZODone HCL 150 MG TABLET PO SCH (20:13)
[2018-11-15] MEDS: 0.9 % SODIUM CHLORIDE 250 ML IV SCH (00:28)
[2018-11-15] MEDS: PIPERACILLIN SODIUM/TAZOBACTAM 3.375 GM in DEXTROSE 5% IN WATER 50 ML IV SCH ×2 (00:29→05:24)
[2018-11-15 05:39] LABS: Mean Cell Volume 87.2 fL (80.0-100.0); Platelet Count 99 K/mcL (140-440); RBC 2.98 M/mcL (4.00-5.20); Red Cell Distribution Width 15.7 % (11.5-14.5)
[2018-11-15] MEDS: 0.9 % SODIUM CHLORIDE 10 ML SYRINGE IV SCH ×5 (06:07→21:40)
[2018-11-15 06:23] LABS: Anisocytosis 1+ (NONE SEEN); Band Neutrophils % 8 % (0-10); Basophils % (Manual) 1 % (0-2); Eosinophils % (Manual) 5 % (0-7); Lymphocytes % 20 % (15-49); Monocytes % (Manual) 7 % (1-12); Platelet Estimate DECREASED (NORMAL); RBC Morphology ABNORM (NORMAL); Segmented Neutrophils % 59 % (38-78); Toxic Granulation 1+ (NONE SEEN)
[2018-11-15 06:40] LABS: ALT/SGPT 12 U/l (0-40); Albumin 2.2 gm/dL (3.2-5.2); Albumin/Globulin Ratio 0.7 (1.0-2.3); Alkaline Phosphatase 61 U/L (39-117); Bilirubin,Direct < 0.2 mg/dL (0.0-0.3); Blood Urea Nitrogen 14 mg/dl (8-23); Gamma Glutamyl Transpeptidase 17 U/L (5-36)
[2018-11-15] MEDS: PANTOPRAZOLE 40 MG TABLET PO SCH (07:51)
[2018-11-15] MEDS: FUROSEMIDE 20 MG/2 ML VIAL IV SCH ×2 (07:51→15:04)
[2018-11-15] MEDS: INSULIN LISPRO 1 UNIT/0.01 ML UNIT SQ SCH ×4 (08:19→21:39)
[2018-11-15] MEDS: amLODIPine 5 MG TABLET PO SCH (08:20)
[2018-11-15] MEDS ORDERED: FONDAPARINUX SODIUM 2.5 MG/0.5 ML SYRINGE SQ SCH (09:00)
[2018-11-15] MEDS: CLOPIDOGREL 75 MG TABLET PO SCH (09:03)
[2018-11-15] MEDS: sitaGLIPtin 50 MG TABLET PO SCH (09:03)
[2018-11-15] MEDS: CITALOPRAM 20 MG TABLET PO SCH (09:04)
[2018-11-15] MEDS: DOCUSATE SODIUM 100 MG CAPSULE PO SCH ×2 (09:04→21:37)
[2018-11-15] MEDS: traMADol 50 MG TABLET PO SCH ×3 (09:04→21:37)
[2018-11-15] MEDS: PREGABALIN 150 MG CAPSULE PO SCH ×2 (09:04→21:36)
--- NOTE | 2018-11-15 10:52 | Internal Med Progress Note ---
Medical - PN: Subj Patient information: Note initiated : 11/15/18 at 10:49 am Service Date, if different from initiated Date: [] Patient: Izzy Casey a 73 y/o F admitted on 11/12/18 for Hypoxia, Fever. Chief Complaint: [] Interval history: Ms. Casey is a 73 year old F who lives alone with the help of caregiver provided to [employer]. By history patient is developmental delayed. Over the last few days patient has been getting progressively weak fatigued and unable to function. Today she she was brought into the ER with symptoms of altered mental status, confusion and gradual progression of her weakness over the last 1 week. Most of the history is obtained from review of medical records. Patient is unable to provide any history. No family members are present. Initial workup was significant for septic shock secondary to significant pyuria. Patient was started on crystalloid/broad antibiotics after cultures were drawn. He was initiated on vasopressors. Hospitalist service was consulted. Initial venous lactate is over 3. At the time of evaluation patient is barely able to open eyes. She is very drowsy. Her initial sofa score is 3. [place] score 16. Patient will be admitt ed to ICU until further history could be obtained, she has been started on broad antibiotic coverage/pressure/crystalloids and undergoing sepsis management protocol. A central line has been secured by anesthesia On arrival to ICU patient's systolics start dropping and was started on pressors. Ongoing crystalloid/broad antibiotic coverage. Ongoing sepsis management per guidelines 11/13-patient overnight on pressors. Improving urine output. Improving mental status change. White count at 19,000 with left shift. Lactic acid 3.1, creatinine 1.3, blood and urine cultures pending. Clinical improvement noted. On broad antibiotic coverage. 11/14-septic shock improving patient currently being weaned off Levophed. Systolics at goal. E. coli bacteremia. Pansensitive E. coli on urine culture however blood cultures sensitivity pending. Surveillance cultures performed. Patient complains of right-sided flank and lateral hip pain. Consider imaging if pain persists due to risk of hematogenous seeding of bacteria. Continue antibiotic coverage and de-escalate based on blood culture sensitivities. Patient clinically improved now alert and oriented. Improving endorgan dysfunction. White count down from 19-10.9. Platelet count is down to 94 likely secondary to heparin effect/severe sepsis early consumptive process. DC heparin and changed to Arixtra. Started on diuretics. Generalized edema from fluid resuscitation 11/15-patient doing well. Pansensitive E. coli on cultures. DC Zosyn and switch to Rocephin. DC central line. Transfer to telemetry. Off pressors and hemodynamically stable. White count down from 19,000-7.9. Abdominal ultrasound does not show hydronephrosis or nephrolithiasis. Ongoing rehab. Tolerating diet. Mentation normalized. No telemetry events. Creatinine normalized 2.8 - Constitutional Vitals: Vital Signs Temp Pulse Resp BP Pulse Ox 98.7 F 71 18 127/48 92 11/15/18 08:02 11/15/18 10:02 11/15/18 09:02 11/15/18 10:02 11/15/18 10:02 Period Temp Pulse Resp BP Sys/Paige Pulse Ox Last 24 Hr 98.0 F-100.7 F 63-86 16-20 100-170/36-114 92-100 Intake and Output 11/14/18 11/15/18 11/15/18 21:59 05:59 13:59 Intake Total 300 300 390 Output Total 2185 381 975 Balance -1885 -81 -585 Weight 227 lb 4.8 oz Intake & Output: Intake & Output 11/14/18 11/15/18 11/15/18 21:59 05:59 13:59 Intake Total 300 300 390 Output Total 2185 381 975 Balance -1885 -81 -585 Weight 227 lb 4.8 oz Intake: IV 100 300 50 Zosyn 3.375 gm In Dextrose 5% 100 50 50 in Water 50 ml @ 100 mls/hr IV Q6H [facility] Rx#:[id number] Vancomycin 1,000 mg In Sodium 250 Chloride 0.9% 250 ml @ 250 mls/ hr IV Q12H [facility] Rx#:[id number] Oral 200 340 Output: Urine Catheter Amount 2185 381 975 Other: Meal Dinner Breakfast Percent of Meal Consumed 25% 50% Feeding Ability Needs Supervision Needs Supervision Urine Appearance Clear Clear Clear Uretheral (Posey) Clear Clear Clear Urine Color Bright Yellow Dark Yellow Pale Uretheral (Posey) Bright Yellow Dark Yellow Dark Gladys Urine Odor Normal General appearance: no acute distress Exam: Alert oriented No telemetry events No labored breathing No anxiety Nontender abdomen Posey is draining clear urine Medical - PN: Obj Da - Labs CBC & Chem 7: 11/15/18 03:25 11/15/18 03:25 Labs: Abnormal Lab Results 11/15/18 11/15/18 11/14/18 03:25 03:25 03:23 WBC RBC 2.98 L Hgb 8.3 L Hct 26.0 L POC Hct RDW 15.7 H Plt Count 99 L MPV 11.4 H Seg Neutrophils % Lymphocytes % WBC Morphology Abnorm A Toxic Granulation 1+ A RBC Morphology Abnorm A Anisocytosis 1+ A VBG Lactic Acid POC Chloride Chloride 109 H 112 H Anion Gap 4.0 L 7.0 L POC BUN BUN Creatinine Glucose 108 H 166 H POC Glucose Hemoglobin A1c Calcium 8.3 L POC WB Ioniz Calcium Phosphorus 1.7 L 1.5 L Alkaline Phosphatase Total Protein 5.5 L 5.7 L Albumin 2.2 L 2.6 L Albumin/Globulin Ratio 0.7 L 0.8 L Urine Protein Urine Glucose (UA) Urine Occult Blood Urine Nitrate Ur Leukocyte Esterase Urine RBC Urine WBC Urine Bacteria Hyaline Casts 11/14/18 11/13/18 11/13/18 03:23 03:32 03:32 WBC RBC 3.25 L Hgb 9.2 L Hct 28.6 L POC Hct RDW 15.4 H Plt Count 94 L MPV 11.9 H Seg Neutrophils % 83 H Lymphocytes % 6 L WBC Morphology Toxic Granulation RBC Morphology Anisocytosis VBG Lactic Acid POC Chloride Chloride 110 H Anion Gap POC BUN BUN 31 H Creatinine 1.3 H Glucose 219 H POC Glucose Hemoglobin A1c 6.6 H Calcium POC WB Ioniz Calcium Phosphorus Alkaline Phosphatase Total Protein Albumin 3.0 L Albumin/Globulin Ratio Urine Protein Urine Glucose (UA) Urine Occult Blood Urine Nitrate Ur Leukocyte Esterase Urine RBC Urine WBC Urine Bacteria Hyaline Casts 11/13/18 11/12/18 11/12/18 03:32 17:37 16:50 WBC 19.0 H RBC 3.47 L 3.63 L Hgb 9.8 L 10.2 L Hct 30.6 L 31.7 L POC Hct 32.0 L RDW 15.5 H 15.2 H Plt Count 136 L 111 L MPV 11.4 H 10.6 H Seg Neutrophils % 84 H 80 H Lymphocytes % 2 L 8 L WBC Morphology Toxic Granulation RBC Morphology Anisocytosis VBG Lactic Acid POC Chloride 109 H Chloride Anion Gap POC BUN 28 H BUN Creatinine Glucose POC Glucose 219 H Hemoglobin A1c Calcium POC WB Ioniz Calcium 1.05 L Phosphorus Alkaline Phosphatase Total Protein Albumin Albumin/Globulin Ratio Urine Protein Urine Glucose (UA) Urine Occult Blood Urine Nitrate Ur Leukocyte Esterase Urine RBC Urine WBC Urine Bacteria Hyaline Casts 11/12/18 11/12/18 11/12/18 16:05 15:55 15:55 WBC RBC Hgb Hct POC Hct RDW Plt Count MPV Seg Neutrophils % Lymphocytes % WBC Morphology Toxic Granulation RBC Morphology Anisocytosis VBG Lactic Acid 3.1 H POC Chloride Chloride Anion Gap POC BUN BUN 28 H Creatinine Glucose 244 H POC Glucose Hemoglobin A1c Calcium POC WB Ioniz Calcium Phosphorus Alkaline Phosphatase 121 H Total Protein Albumin Albumin/Globulin Ratio Urine Protein 100 A Urine Glucose (UA) >=500 A Urine Occult Blood 0.2 A Urine Nitrate Pos A Ur Leukocyte Esterase 500 A Urine RBC 8 H Urine WBC > 182 H Urine Bacteria Mod A Hyaline Casts 6 H Meds: Medications Acetaminophen (Tylenol) 650 mg PO Q4-6HP PRN PRN Reason: PAIN/FEVER > 101 Albuterol Sulfate (Ventolin) 2 puff INH Q6HP PRN PRN Reason: COUGH, SOB, WHEEZING Amlodipine Besylate (Norvasc) 5 mg PO QDAY [facility] Last Admin: 11/15/18 08:20 Dose: Not Given Documented by: Citalopram Hydrobromide (Celexa) 40 mg PO QDAY [facility] Last Admin: 11/15/18 09:04 Dose: 40 mg Documented by: Clopidogrel Bisulfate (Plavix) 75 mg PO QDAY [facility] Last Admin: 11/15/18 09:03 Dose: 75 mg Documented by: Diagnostic Test (Pha) (Accu-Chek) 1 each FS ACHS [facility] Last Admin: 11/15/18 08:19 Dose: 1 each Documented by: Docusate Sodium (Colace) 100 mg PO BID [facility] Last Admin: 11/15/18 09:04 Dose: 100 mg Documented by: Fondaparinux (Arixtra) 2.5 mg SQ DAILY [facility] Last Admin: 11/15/18 09:04 Dose: 2.5 mg Documented by: Furosemide (Lasix) 20 mg IV BIDD [facility] Last Admin: 11/15/18 07:51 Dose: 20 mg Documented by: Sodium Chloride (Sodium Chloride 0.9%) 250 mls @ 20 mls/hr IV .[id number] [facility] Last Admin: 11/15/18 00:28 Dose: Not Given Documented by: Magnesium Sulfate (Magnesium Sulfate) 2 gm in 50 mls @ 50 mls/hr IV UD PRN PRN Reason: MG = or < 1.7 Acetaminophen (Ofirmev) 1,000 mg in 100 mls @ 200 mls/hr IV Q6HP PRN PRN Reason: PAIN/FEVER > 101 Last Infusion: 11/13/18 23:30 Dose: Infused Documented by: Norepinephrine Bitartrate 16 (mg/ Sodium Chloride) 250 mls @ 9.38 mls/hr IV Q24HP PRN; Protocol PRN Reason: TITRATE TO KEEP MAP > 65 Ceftriaxone Sodium 2 gm/ (Dextrose) 50 mls @ 100 mls/hr IV Q24H [facility] Insulin Human Lispro (Humalog) 0 unit SQ ACHS [facility]; Protocol Last Admin: 11/15/18 08:19 Dose: Not Given Documented by: Loratadine (Claritin) 10 mg PO DAILYP PRN PRN Reason: CONGESTION Ondansetron HCl (Zofran) 4 mg IV Q4-6HP PRN PRN Reason: Nausea And Vomiting Last Admin: 11/13/18 10:30 Dose: 4 mg Documented by: Pantoprazole Sodium (Protonix) 40 mg PO QAMAC [facility] Last Admin: 11/15/18 07:51 Dose: 40 mg Documented by: Potassium Chloride (Klor-Con) 40 meq PO DAILYP PRN PRN Reason: K+ < 3.5 Pregabalin (Lyrica) 150 mg PO BID [facility] Last Admin: 11/15/18 09:04 Dose: 150 mg Documented by: Senna/Docusate Sodium (Senna Plus Tablet) 1 tab PO HS [facility] Last Admin: 11/14/18 20:13 Dose: 1 tab Documented by: Simvastatin (Zocor) 10 mg PO QHS [facility] Last Admin: 11/14/18 20:13 Dose: 10 mg Documented by: Sitagliptin Phosphate (Januvia) 50 mg PO DAILY [facility] Last Admin: 11/15/18 09:03 Dose: 50 mg Documented by: Sodium Chloride (Saline Flush) 10 ml IV Q12 [facility] Last Admin: 11/15/18 09:04 Dose: 10 ml Documented by: Sodium Chloride (Saline Flush) 10 ml IV UD PRN PRN Reason: FLUSH Sodium Chloride (Saline Flush) 10 ml IV Q8 [facility] Last Admin: 11/15/18 06:07 Dose: 10 ml Documented by: Tramadol HCl (Ultram) 50 mg PO TID [facility] Last Admin: 11/15/18 09:04 Dose: 50 mg Documented by: Trazodone HCl (Desyrel) 150 mg PO HS [facility] Last Admin: 11/14/18 20:13 Dose: 150 mg Documented by: Medical - PN: A/P - Time Spent With Patient Total time spent is greater than 50% in coordination of care (as documented) at patient's floor/unit and/or counseling patient: 25 - 35 minutes (1) Septic shock Status: Acute Assessment and plan: * E. coli bacteremia-surveillance cultures negative so far. De-escalate antibiotic to Rocephin. * Septic shock-clinically resolved. Off pressors. Transfer to telemetry. * Complicated E. coli UTI /acute right-sided pyelonephritis -renal ultrasound no evidence of hydronephrosis. * Left apical pneumonia-clinically clinical improvement noted. Currently on 3 L oxygen. Continue diuresis * Right hip/flank pain-likely secondary to nephrolithiasis * DM type II continue basal prandial insulin * Anxiety disorder continue citalopram * History of CAD continue Plavix * history of hypertension-meds on hold in light of stroke * Full code * Prophylaxis heparin Plan * Transfer to telemetry * DC vancomycin/Zosyn and start Rocephin, target antibiotic through 11/26 * DC central line * Continue diuresis * DC his Posey catheter in 24 hours * Restart home dose antihypertensives Current Visit: Yes Medical - PN: Qual - VTE Deep Vein Thrombosis/Pulmonary Embolism Present on Admission: No
[2018-11-15] MEDS ORDERED: cefTRIAXone 2 GM in DEXTROSE 5% IN WATER 50 ML IV SCH (11:00)
[2018-11-15] MEDS ORDERED: ACETAMINOPHEN 325 MG TABLET PO PRN (12:20)
[2018-11-15] MEDS ORDERED: ONDANSETRON 4 MG/2 ML VIAL IV PRN (12:20)
[2018-11-15] MEDS ORDERED: LORATADINE 10 MG TABLET PO PRN (12:20)
[2018-11-15] MEDS ORDERED: 0.9 % SODIUM CHLORIDE 10 ML SYRINGE IV PRN (12:20)
[2018-11-15] MEDS ORDERED: ALBUTEROL SULFATE 1 PUFF INHALER INH PRN (12:20)
[2018-11-15] MEDS ORDERED: POTASSIUM CHLORIDE 20 MEQ PACKET PO PRN (12:20)
[2018-11-15] MEDS ORDERED: MAGNESIUM SULFATE 2 GM/50 ML BAG IV PRN (12:20)
[2018-11-15] MEDS ORDERED: ACETAMINOPHEN 1,000 MG/100 ML BOTTLE IV PRN (12:20)
[2018-11-15] MEDS ORDERED: SIMVASTATIN 10 MG TABLET PO SCH (21:00)
[2018-11-15] MEDS ORDERED: SENNOSIDES/DOCUSATE SODIUM 1 TAB TABLET PO SCH (21:00)
[2018-11-15] MEDS ORDERED: traZODone HCL 150 MG TABLET PO SCH (21:00)
[2018-11-15] MEDS ORDERED: ATENOLOL 50 MG TABLET PO SCH (21:00)
[2018-11-16 05:05] LABS: Mean Cell Volume 86.8 fL (80.0-100.0); Mean Corpuscular HGB Conc 32.4 g/dL (31.0-36.0); Platelet Count 121 K/mcL (140-440); RBC 2.94 M/mcL (4.00-5.20); Red Cell Distribution Width 15.3 % (11.5-14.5)
[2018-11-16 05:16] LABS: ALT/SGPT 10 U/l (0-40); Albumin 2.4 gm/dL (3.2-5.2); Albumin/Globulin Ratio 0.8 (1.0-2.3); Alkaline Phosphatase 64 U/L (39-117); Bilirubin,Direct < 0.2 mg/dL (0.0-0.3); Blood Urea Nitrogen 18 mg/dl (8-23); Gamma Glutamyl Transpeptidase 15 U/L (5-36); Uric Acid 4.4 mg/dL (2.5-8.0)
[2018-11-16 07:18] LABS: Eosinophils % (Manual) 5 % (0-7); Lymphocytes % 17 % (15-49); Monocytes % (Manual) 9 % (1-12); Platelet Estimate NORMAL (NORMAL); RBC Morphology NORMAL (NORMAL); Segmented Neutrophils % 69 % (38-78)
[2018-11-16] MEDS ORDERED: PANTOPRAZOLE 40 MG TABLET PO SCH (07:30)
[2018-11-16] MEDS: 0.9 % SODIUM CHLORIDE 10 ML SYRINGE IV SCH ×5 (07:36→20:20)
[2018-11-16] MEDS: INSULIN LISPRO 1 UNIT/0.01 ML UNIT SQ SCH ×4 (08:11→20:28)
[2018-11-16] MEDS: FUROSEMIDE 20 MG/2 ML VIAL IV SCH ×2 (08:21→16:05)
[2018-11-16] MEDS: PREGABALIN 150 MG CAPSULE PO SCH ×2 (08:22→20:19)
[2018-11-16] MEDS: traMADol 50 MG TABLET PO SCH ×3 (08:22→20:27)
[2018-11-16] MEDS: DOCUSATE SODIUM 100 MG CAPSULE PO SCH ×2 (08:22→20:18)
[2018-11-16] MEDS ORDERED: CITALOPRAM 20 MG TABLET PO SCH (09:00)
[2018-11-16] MEDS ORDERED: sitaGLIPtin 50 MG TABLET PO SCH (09:00)
[2018-11-16] MEDS ORDERED: cefTRIAXone 2 GM in DEXTROSE 5% IN WATER 50 ML IV SCH (09:00)
[2018-11-16] MEDS ORDERED: CLOPIDOGREL 75 MG TABLET PO SCH (09:00)
[2018-11-16] MEDS ORDERED: amLODIPine 5 MG TABLET PO SCH (09:00)
[2018-11-16] MEDS ORDERED: FONDAPARINUX SODIUM 2.5 MG/0.5 ML SYRINGE SQ SCH (09:00)
--- NOTE | 2018-11-16 10:43 | Internal Med Progress Note ---
Medical - PN: Subj Patient information: Note initiated : 11/16/18 at 10:39 am Service Date, if different from initiated Date: [] Patient: Izzy Casey a 73 y/o F admitted on 11/12/18 for Hypoxia, Fever. Chief Complaint: [] Interval history: Ms. Casey is a 73 year old F who lives alone with the help of caregiver provided to [employer]. By history patient is developmental delayed. Over the last few days patient has been getting progressively weak fatigued and unable to function. Today she she was brought into the ER with symptoms of altered mental status, confusion and gradual progression of her weakness over the last 1 week. Most of the history is obtained from review of medical records. Patient is unable to provide any history. No family members are present. Initial workup was significant for septic shock secondary to significant pyuria. Patient was started on crystalloid/broad antibiotics after cultures were drawn. He was initiated on vasopressors. Hospitalist service was consulted. Initial venous lactate is over 3. At the time of evaluation patient is barely able to open eyes. She is very drowsy. Her initial sofa score is 3. [place] score 16. Patient will be admitt ed to ICU until further history could be obtained, she has been started on broad antibiotic coverage/pressure/crystalloids and undergoing sepsis management protocol. A central line has been secured by anesthesia On arrival to ICU patient's systolics start dropping and was started on pressors. Ongoing crystalloid/broad antibiotic coverage. Ongoing sepsis management per guidelines 11/13-patient overnight on pressors. Improving urine output. Improving mental status change. White count at 19,000 with left shift. Lactic acid 3.1, creatinine 1.3, blood and urine cultures pending. Clinical improvement noted. On broad antibiotic coverage. 11/14-septic shock improving patient currently being weaned off Levophed. Systolics at goal. E. coli bacteremia. Pansensitive E. coli on urine culture however blood cultures sensitivity pending. Surveillance cultures performed. Patient complains of right-sided flank and lateral hip pain. Consider imaging if pain persists due to risk of hematogenous seeding of bacteria. Continue antibiotic coverage and de-escalate based on blood culture sensitivities. Patient clinically improved now alert and oriented. Improving endorgan dysfunction. White count down from 19-10.9. Platelet count is down to 94 likely secondary to heparin effect/severe sepsis early consumptive process. DC heparin and changed to Arixtra. Started on diuretics. Generalized edema from fluid resuscitation 11/15-patient doing well. Pansensitive E. coli on cultures. DC Zosyn and switch to Rocephin. DC central line. Transfer to telemetry. Off pressors and hemodynamically stable. White count down from 19,000-7.9. Abdominal ultrasound does not show hydronephrosis or nephrolithiasis. Ongoing rehab. Tolerating diet. Mentation normalized. No telemetry events. Creatinine normalized 2.8 11/16-patient doing well. No overnight events. White count continues to down trend. Afebrile. Flank pain improved. Renal function normalized. Mentation at baseline. Transfer to medical floor. Continue antibiotic coverage for total of 14 days from last negative blood culture in the setting of pyelonephritis/E. coli bacteremia. Anticipate discharge in 24-48 hours - Constitutional Vitals: Vital Signs Temp Pulse Resp BP Pulse Ox 98.3 F 62 16 132/48 98 11/16/18 07:52 11/16/18 07:52 11/16/18 07:52 11/16/18 07:52 11/16/18 07:52 Period Temp Pulse Resp BP Sys/Paige Pulse Ox Last 24 Hr 97.2 F-99 F 62-72 16-20 119-147/32-56 94-98 Intake and Output 11/15/18 11/16/18 11/16/18 21:59 05:59 13:59 Intake Total 650 240 Output Total 380 985 Balance 270 -985 240 Weight 228 lb 3.2 oz Intake & Output: Intake & Output 11/15/18 11/16/18 11/16/18 21:59 05:59 13:59 Intake Total 650 240 Output Total 380 985 Balance 270 -985 240 Weight 228 lb 3.2 oz Intake: IV 50 Oral 600 240 Output: Urine Catheter Amount 380 985 Other: Meal Dinner Nourishment/Supplement Percent of Meal Consumed 50% 100% Feeding Ability Assist with Tray Set Up Independent Urine Appearance Clear Clear Uretheral (Posey) Clear Urine Color Dark Yellow Uretheral (Posey) Dark Yellow Stool Size Large Stool Color Green Stool Consistency Formed # Bowel Movements 1 General appearance: morbidly obese, no acute distress Exam: Alert no anxiety Nonlabored breathing No abdominal distention No lymphedema No telemetry events Medical - PN: Obj Da - Labs CBC & Chem 7: 11/16/18 03:41 11/16/18 03:41 Labs: Abnormal Lab Results 11/16/18 11/16/18 11/15/18 03:41 03:41 03:25 RBC 2.94 L Hgb 8.3 L Hct 25.5 L RDW 15.3 H Plt Count 121 L MPV 10.9 H Seg Neutrophils % Lymphocytes % WBC Morphology Toxic Granulation RBC Morphology Anisocytosis Chloride 109 H Carbon Dioxide 31 H Anion Gap 5.0 L 4.0 L Glucose 129 H 108 H Calcium Phosphorus 1.7 L Total Protein 5.4 L 5.5 L Albumin 2.4 L 2.2 L Albumin/Globulin Ratio 0.8 L 0.7 L Triglycerides 152 H 11/15/18 11/14/18 11/14/18 03:25 03:23 03:23 RBC 2.98 L 3.25 L Hgb 8.3 L 9.2 L Hct 26.0 L 28.6 L RDW 15.7 H 15.4 H Plt Count 99 L 94 L MPV 11.4 H 11.9 H Seg Neutrophils % 83 H Lymphocytes % 6 L WBC Morphology Abnorm A Toxic Granulation 1+ A RBC Morphology Abnorm A Anisocytosis 1+ A Chloride 112 H Carbon Dioxide Anion Gap 7.0 L Glucose 166 H Calcium 8.3 L Phosphorus 1.5 L Total Protein 5.7 L Albumin 2.6 L Albumin/Globulin Ratio 0.8 L Triglycerides Meds: Medications Acetaminophen (Tylenol) 650 mg PO Q4-6HP PRN PRN Reason: PAIN/FEVER > 101 Albuterol Sulfate (Ventolin) 2 puff INH Q6HP PRN PRN Reason: COUGH, SOB, WHEEZING Amlodipine Besylate (Norvasc) 5 mg PO QDAY [facility] Atenolol (Tenormin) 12.5 mg PO [facility] Last Admin: 11/15/18 21:35 Dose: 12.5 mg Documented by: Citalopram Hydrobromide (Celexa) 40 mg PO QDAY [facility] Last Admin: 11/16/18 08:21 Dose: 40 mg Documented by: Clopidogrel Bisulfate (Plavix) 75 mg PO QDAY [facility] Last Admin: 11/16/18 08:22 Dose: 75 mg Documented by: Diagnostic Test (Pha) (Accu-Chek) 1 each FS ACHS [facility] Last Admin: 11/16/18 07:40 Dose: 1 each Documented by: Docusate Sodium (Colace) 100 mg PO BID [facility] Last Admin: 11/16/18 08:22 Dose: 100 mg Documented by: Fondaparinux (Arixtra) 2.5 mg SQ DAILY [facility] Last Admin: 11/16/18 08:21 Dose: 2.5 mg Documented by: Furosemide (Lasix) 20 mg IV BIDD [facility] Last Admin: 11/16/18 08:21 Dose: 20 mg Documented by: Ceftriaxone Sodium 2 gm/ (Dextrose) 50 mls @ 100 mls/hr IV Q24H [facility] Last Admin: 11/16/18 08:21 Dose: 100 mls/hr Documented by: Magnesium Sulfate (Magnesium Sulfate) 2 gm in 50 mls @ 50 mls/hr IV UD PRN PRN Reason: MG = or < 1.7 Last Infusion: 11/15/18 18:53 Dose: Infused Documented by: Acetaminophen (Ofirmev) 1,000 mg in 100 mls @ 200 mls/hr IV Q6HP PRN PRN Reason: PAIN/FEVER > 101 Insulin Human Lispro (Humalog) 0 unit SQ [facility]; Protocol Last Admin: 11/16/18 08:11 Dose: Not Given Documented by: Loratadine (Claritin) 10 mg PO DAILYP PRN PRN Reason: CONGESTION Ondansetron HCl (Zofran) 4 mg IV Q4-6HP PRN PRN Reason: Nausea And Vomiting Pantoprazole Sodium (Protonix) 40 mg PO QAMAC [facility] Last Admin: 11/16/18 07:43 Dose: 40 mg Documented by: Potassium Chloride (Klor-Con) 40 meq PO DAILYP PRN PRN Reason: K+ < 3.5 Pregabalin (Lyrica) 150 mg PO BID [facility] Last Admin: 11/16/18 08:22 Dose: 150 mg Documented by: Senna/Docusate Sodium (Senna Plus Tablet) 1 tab PO [facility] Last Admin: 11/15/18 21:38 Dose: 1 tab Documented by: Simvastatin (Zocor) 10 mg PO QHS [facility] Last Admin: 11/15/18 21:37 Dose: 10 mg Documented by: Sitagliptin Phosphate (Januvia) 50 mg PO DAILY [facility] Last Admin: 11/16/18 08:22 Dose: 50 mg Documented by: Sodium Chloride (Saline Flush) 10 ml IV UD PRN PRN Reason: FLUSH Last Admin: 11/16/18 08:21 Dose: 10 ml Documented by: Sodium Chloride (Saline Flush) 10 ml IV Q12 [facility] Last Admin: 11/16/18 07:36 Dose: 10 ml Documented by: Sodium Chloride (Saline Flush) 10 ml IV Q8 [facility] Last Admin: 11/16/18 07:36 Dose: 10 ml Documented by: Tramadol HCl (Ultram) 50 mg PO TID [facility] Last Admin: 11/16/18 08:22 Dose: 50 mg Documented by: Trazodone HCl (Desyrel) 150 mg PO HS [facility] Last Admin: 11/15/18 21:36 Dose: 150 mg Documented by: Medical - PN: A/P - Time Spent With Patient Total time spent is greater than 50% in coordination of care (as documented) at patient's floor/unit and/or counseling patient: 25 - 35 minutes (1) Septic shock Status: Acute Assessment and plan: * E. coli bacteremia-surveillance cultures negative so far. De-escalate antibiotic to Rocephin. * Septic shock-clinically resolved. Off pressors. Transfer to telemetry. * Complicated E. coli UTI /acute right-sided pyelonephritis -renal ultrasound no evidence of hydronephrosis. * Left apical pneumonia-clinically clinical improvement noted. Currently on 3 L oxygen. Continue diuresis * Right hip/flank pain-likely secondary to nephrolithiasis * DM type II continue basal prandial insulin * Anxiety disorder continue citalopram * History of CAD continue Plavix * history of hypertension-back on home meds * Full code * Prophylaxis heparin Plan * Transfer to medical floor * Continue Rocephin through 11/26 * DC central line * DC Posey's catheter * Continue diuresis * Continue pre-existing well condition management and home meds Current Visit: Yes Medical - PN: Qual - VTE Deep Vein Thrombosis/Pulmonary Embolism Present on Admission: No
[2018-11-16] MEDS ORDERED: ALBUTEROL SULFATE 1 PUFF INHALER INH PRN (10:45)
[2018-11-16] MEDS ORDERED: POTASSIUM CHLORIDE 20 MEQ PACKET PO PRN (10:45)
[2018-11-16] MEDS ORDERED: MAGNESIUM SULFATE 2 GM/50 ML BAG IV PRN (10:45)
[2018-11-16] MEDS ORDERED: ONDANSETRON 4 MG/2 ML VIAL IV PRN (10:45)
[2018-11-16] MEDS ORDERED: LORATADINE 10 MG TABLET PO PRN (10:45)
[2018-11-16] MEDS ORDERED: ACETAMINOPHEN 1,000 MG/100 ML BOTTLE IV PRN (10:45)
[2018-11-16] MEDS ORDERED: ACETAMINOPHEN 325 MG TABLET PO PRN (10:45)
[2018-11-16] MEDS ORDERED: 0.9 % SODIUM CHLORIDE 10 ML SYRINGE IV PRN (10:45)
--- NOTE | 2018-11-16 13:18 | Discharge Summary ---
Medical - DS: Prov Patient information: Note initiated : 11/16/18 at 1:14 pm Service Date, if different from initiated Date: [] Patient: Izzy Casey 73 y/o F admitted on 11/12/18 for Hypoxia, Fever. Chief Complaint: [] Date of admission: 11/12/18 20:08 Discharge date: 11/19/18 Primary care physician: Rob Pires Consults: 11/12/18 Consult to Physician [CONS] Stat Comment: Consulting Provider: Simone Gonzales Reason For Exam: Physician to Consult Consult to Physician [CONS] Stat Comment: Consulting Provider: Sal Shrestha Reason For Exam: Physician to Consult Medical - DS: Meds - Discharge Medications Prescriptions: Ciprofloxacin HCl [Cipro] 500 mg PO BID #8 tab Lactobacillus [Culturelle] 1 cap PO BID #60 cap Active and Home Medications: Home Medications amlodipine 5 mg tablet 5 mg PO QDAY #90 tab 08/02/18 [Rx Confirmed 11/13/18 Last Taken 11/12/18 08:00] clopidogrel 75 mg tablet 75 mg PO QDAY #90 tab 08/02/18 [Rx Confirmed 11/13/18 Last Taken 11/12/18 08:00] dexlansoprazole 30 mg capsule,biphase delayed release 30 mg PO QDAY #90 cap 08/02/18 [Rx Confirmed 11/12/18 Last Taken Unknown] loratadine 10 mg tablet 10 mg PO QDAY PRN #90 tab 08/02/18 [Rx Confirmed 11/13/18 Last Taken Unknown] lorazepam 1 mg tablet 1 mg PO QHS tab 08/02/18 [History Confirmed 11/13/18 Last Taken Unknown] losartan 50 mg tablet 50 mg PO QDAY #90 tab 08/02/18 [Rx Confirmed 11/13/18 Last Taken 11/12/18 08:00] sennosides 8.6 mg tablet 8.6 mg PO QHS PRN #90 tab 08/02/18 [Rx Confirmed 10/12/18 Last Taken Unknown] simvastatin 10 mg tablet 10 mg PO QHS #90 tab 08/02/18 [Rx Confirmed 11/13/18 Last Taken 11/11/18 21:00] methocarbamol 500 mg tablet See Rx Instructions PO Q6H PRN #30 tab 09/19/18 [Rx Confirmed 10/12/18 Last Taken Unknown] nitrofurantoin monohydrate/macrocrystals 100 mg capsule 100 mg PO BID #20 cap 10/08/18 [Rx Confirmed 10/12/18 Last Taken Unknown] pregabalin 300 mg capsule 300 mg PO BID #60 cap 10/11/18 [Rx Confirmed 11/13/18 Last Taken 11/12/18 08:00] albuterol sulfate HFA 90 mcg/actuation aerosol inhaler 2 puff INHALATION Q6H PRN #8.5 g 10/12/18 [Rx Confirmed 11/12/18 Last Taken Unknown] trazodone 150 mg tablet 300 mg PO QHS #180 tab 10/18/18 [Rx Confirmed 11/13/18 Last Taken 11/11/18 21:00] atenolol 25 mg tablet 12.5 mg PO QHS #45 tab 11/12/18 [Rx Confirmed 11/13/18 Last Taken 11/11/18 21:00] Citalopram Hydrobromide [Citalopram HBr] 40 mg PO QDAY 11/13/18 [History Confirmed 11/13/18 Last Taken 11/12/18 08:00] Dexlansoprazole [Dexilant] 30 mg PO DAILY 11/13/18 [History Confirmed 11/13/18 Last Taken 11/12/18 08:00] Ferrous Sulfate 325 mg PO QHS 11/13/18 [History Confirmed 11/13/18 Last Taken 11/11/18 21:00] Furosemide [Lasix] 20 mg PO QAM 11/13/18 [History Confirmed 11/13/18 Last Taken 11/12/18 08:00] Pregabalin [Lyrica] 150 mg PO BID 11/13/18 [History Confirmed 11/13/18 Last Taken Unknown] glipiZIDE [Glucotrol] 10 mg PO QHS 11/13/18 [History Confirmed 11/13/18 Last Taken 11/11/18 17:00] sitaGLIPtin [Januvia] 100 mg PO DAILY 11/13/18 [History Confirmed 11/13/18 Last Taken 11/12/18 08:00] traMADol [Ultram] 100 mg PO TID 11/13/18 [History Confirmed 11/13/18 Last Taken 11/12/18 08:00] Home Medications amlodipine 5 mg tablet 5 mg PO QDAY #90 tab 08/02/18 [Rx Confirmed 11/13/18 Last Taken 11/12/18 08:00] clopidogrel 75 mg tablet 75 mg PO QDAY #90 tab 08/02/18 [Rx Confirmed 11/13/18 Last Taken 11/12/18 08:00] dexlansoprazole 30 mg capsule,biphase delayed release 30 mg PO QDAY #90 cap 08/02/18 [Rx Confirmed 11/12/18 Last Taken Unknown] loratadine 10 mg tablet 10 mg PO QDAY PRN #90 tab 08/02/18 [Rx Confirmed 11/13/18 Last Taken Unknown] lorazepam 1 mg tablet 1 mg PO QHS tab 08/02/18 [History Confirmed 11/13/18 Last Taken Unknown] losartan 50 mg tablet 50 mg PO QDAY #90 tab 08/02/18 [Rx Confirmed 11/13/18 Last Taken 11/12/18 08:00] sennosides 8.6 mg tablet 8.6 mg PO QHS PRN #90 tab 08/02/18 [Rx Confirmed 11/17/18 Last Taken Unknown] simvastatin 10 mg tablet 10 mg PO QHS #90 tab 08/02/18 [Rx Confirmed 11/13/18 Last Taken 11/11/18 21:00] methocarbamol 500 mg tablet See Rx Instructions PO Q6H PRN #30 tab 09/19/18 [Rx Confirmed 11/17/18 Last Taken Unknown] nitrofurantoin monohydrate/macrocrystals 100 mg capsule 100 mg PO BID #20 cap 10/08/18 [Rx Confirmed 11/17/18 Last Taken Unknown] pregabalin 300 mg capsule 300 mg PO BID #60 cap 10/11/18 [Rx Confirmed 11/13/18 Last Taken 11/12/18 08:00] albuterol sulfate HFA 90 mcg/actuation aerosol inhaler 2 puff INHALATION Q6H PRN #8.5 g 10/12/18 [Rx Confirmed 11/12/18 Last Taken Unknown] trazodone 150 mg tablet 300 mg PO QHS #180 tab 10/18/18 [Rx Confirmed 11/13/18 Last Taken 11/11/18 21:00] atenolol 25 mg tablet 12.5 mg PO QHS #45 tab 11/12/18 [Rx Confirmed 11/13/18 Last Taken 11/11/18 21:00] Citalopram Hydrobromide [Citalopram HBr] 40 mg PO QDAY 11/13/18 [History Confirmed 11/13/18 Last Taken 11/12/18 08:00] Dexlansoprazole [Dexilant] 30 mg PO DAILY 11/13/18 [History Confirmed 11/13/18 Last Taken 11/12/18 08:00] Ferrous Sulfate 325 mg PO QHS 11/13/18 [History Confirmed 11/13/18 Last Taken 11/11/18 21:00] Furosemide [Lasix] 20 mg PO QAM 11/13/18 [History Confirmed 11/13/18 Last Taken 11/12/18 08:00] Pregabalin [Lyrica] 150 mg PO BID 11/13/18 [History Confirmed 11/13/18 Last Taken Unknown] glipiZIDE [Glucotrol] 10 mg PO QHS 11/13/18 [History Confirmed 11/13/18 Last Taken 11/11/18 17:00] sitaGLIPtin [Januvia] 100 mg PO DAILY 11/13/18 [History Confirmed 11/13/18 Last Taken 11/12/18 08:00] traMADol [Ultram] 100 mg PO TID 11/13/18 [History Confirmed 11/13/18 Last Taken 11/12/18 08:00] Ciprofloxacin HCl [Cipro] 500 mg PO BID #8 tab 11/18/18 [Rx Last Taken Unknown] Lactobacillus [Culturelle] 1 cap PO BID #60 cap 11/18/18 [Rx Last Taken Unknown] Medical - DS: Hosp Hospital course: Ms. Casey is a 73 year old F who lives alone with the help of caregiver provided to [employer]. By history patient is developmental delayed. Over the last few days patient has been getting progressively weak fatigued and unable to function. Today she she was brought into the ER with symptoms of altered mental status, confusion and gradual progression of her weakness over the last 1 week. Most of the history is obtained from review of medical records. Patient is unable to provide any history. No family members are present. Initial workup was significant for septic shock secondary to significant pyuria. Patient was started on crystalloid/broad antibiotics after cultures were drawn. He was initiated on vasopressors. Hospitalist service was consulted. Initial venous lactate is over 3. At the time of evaluation patient is barely able to open eyes. She is very drowsy. Her initial sofa score is 3. Wetzel score 16. Patient will be admitted to ICU until further history could be obtained, she has been started on broad antibiotic coverage/pressure/crystalloids and undergoing sepsis management protocol. A central line has been secured by anesthesia On arrival to ICU patient's systolics start dropping and was started on pressors. Ongoing crystalloid/broad antibiotic coverage. Ongoing sepsis management per guidelines 11/13-patient overnight on pressors. Improving urine output. Improving mental status change. White count at 19,000 with left shift. Lactic acid 3.1, creatinine 1.3, blood and urine cultures pending. Clinical improvement noted. On broad antibiotic coverage. 11/14-septic shock improving patient currently being weaned off Levophed. Systolics at goal. E. coli bacteremia. Pansensitive E. coli on urine culture however blood cultures sensitivity pending. Surveillance cultures performed. Patient complains of right-sided flank and lateral hip pain. Consider imaging if pain persists due to risk of hematogenous seeding of bacteria. Continue antibiotic coverage and de-escalate based on blood culture sensitivities. Patient clinically improved now alert and oriented. Improving endorgan dysfun ction. White count down from 19-10.9. Platelet count is down to 94 likely secondary to heparin effect/severe sepsis early consumptive process. DC heparin and changed to Arixtra. Started on diuretics. Generalized edema from fluid resuscitation 11/15-patient doing well. Pansensitive E. coli on cultures. DC Zosyn and switch to Rocephin. DC central line. Transfer to telemetry. Off pressors and hemodynamically stable. White count down from 19,000-7.9. Abdominal ultrasound does not show hydronephrosis or nephrolithiasis. Ongoing rehab. Tolerating diet. Mentation normalized. No telemetry events. Creatinine normalized 2.8 11/16-patient doing well. No overnight events. White count continues to down trend. Afebrile. Flank pain improved. Renal function normalized. Mentation at baseline. Transfer to medical floor. Continue antibiotic coverage for total of 14 days from last negative blood culture in the setting of pyelonephritis/E. coli bacteremia. Anticipate discharge in 24-48 hours 11/17 No overnight events. Slept well. Has sinus congestion. Denies coughing shortness of breath chest pain stomach pain. Walk for 50 feet with physical therapy yesterday. Reported diarrhea overnight. 11/18 Slept well again, no overnight events. No new complaints. Per nurse note stool soft rather than loose. on room air. 11/19 No overnight events. Doing well. Stable for discharge home with caregiver. Discharge diagnosis: E. coli bacteremia pyelonephritis septic shock pneumonia Secondary discharge diagnosis: Diabetes anxiety CAD hypertension - Time Spent with Patient Total time spent providing and/or coordinating discharge services: Greater than 30 minutes Medical - DS: Exam - Constitutional Vitals: Vital Signs Temp Pulse Resp BP Pulse Ox 11/16/18 12:10 98.3 F 65 18 154/62 96 11/16/18 07:52 98.3 F 62 16 132/48 98 11/16/18 04:02 97.2 F 19 119/46 95 11/16/18 00:15 97.8 F 20 122/32 96 11/15/18 20:01 67 96 11/15/18 19:52 99 F 68 20 147/41 97 11/15/18 19:15 94 11/15/18 16:53 98.7 F 70 16 137/56 97 Intake and Output 11/15/18 11/16/18 11/16/18 21:59 05:59 13:59 Intake Total 650 290 Output Total 380 985 Balance 270 -985 290 Intake: IV 50 50 Rocephin 2 gm In Dextrose 5% in 50 Water 50 ml @ 100 mls/hr IV Q24H [facility] Rx#:[id number] Oral 600 240 Output: Urine Catheter Amount 380 985 Other: Meal Dinner Nourishment/Supplement Percent of Meal Consumed 50% 100% Feeding Ability Assist with Tray Set Up Independent Urine Appearance Clear Clear Uretheral (Posey) Clear Clear Urine Color Dark Yellow Uretheral (Posey) Dark Yellow Bright Yellow Stool Size Large Stool Color Green Stool Consistency Formed # Bowel Movements 1 Weight 103.51 kg Medical - DS: Data Labs on day of discharge: Labs from last 24 hours 11/16/18 11/16/18 11/16/18 03:41 03:41 03:41 WBC 5.9 RBC 2.94 L Hgb 8.3 L Hct 25.5 L MCV 86.8 MCH 28.2 MCHC 32.4 RDW 15.3 H Plt Count 121 L MPV 10.9 H Total Counted 100 Seg Neutrophils % 69 Band Neutrophils % Not Reportable Lymphocytes % 17 Monocytes % (Manual) 9 Eosinophils % (Manual) 5 Platelet Estimate Normal RBC Morphology Normal Sodium 143 Potassium 3.7 Chloride 107 Carbon Dioxide 31 H Anion Gap 5.0 L BUN 18 Creatinine 0.8 GFR Calculation 74 Glucose 129 H Uric Acid 4.4 Calcium 8.8 Phosphorus 3.3 Magnesium 2.0 Ferritin 233.6 Total Bilirubin 0.2 Direct Bilirubin < 0.2 GGT 15 AST 10 ALT 10 Alkaline Phosphatase 64 Lactate Dehydrogenase 140 Total Protein 5.4 L Albumin 2.4 L Globulin 3.0 Albumin/Globulin Ratio 0.8 L Triglycerides 152 H Preliminary micro results at discharge 11/13/18 18:00 Blood Culture - Preliminary Blood 11/13/18 18:26 Blood Culture - Preliminary Blood 11/12/18 17:37 Blood Culture - Preliminary Blood Medical - DS: A/P - Patient/Caregiver Discharge Instructions Activity: increase activity as tolerated Diet: Dysphagia Mech Alter Prescriptions: Ciprofloxacin HCl [Cipro] 500 mg PO BID #8 tab Lactobacillus [Culturelle] 1 cap PO BID #60 cap - Follow up Plan Follow up with: Rob Pires DO [Primary Care Provider] - Disposition: Home Health Service Prognosis: Fair Rehab Potential: Fair Medical - DS: Qual - VTE Deep Vein Thrombosis/Pulmonary Embolism Present on Admission: No
[2018-11-16] MEDS: traZODone HCL 150 MG TABLET PO SCH (20:17)
[2018-11-16] MEDS: ATENOLOL 50 MG TABLET PO SCH (20:17)
[2018-11-16] MEDS: SIMVASTATIN 10 MG TABLET PO SCH (20:19)
[2018-11-16] MEDS ORDERED: SENNOSIDES/DOCUSATE SODIUM 1 TAB TABLET PO SCH (21:00)
[2018-11-17] MEDS: 0.9 % SODIUM CHLORIDE 10 ML SYRINGE IV SCH ×5 (06:10→21:05)
[2018-11-17] MEDS: PANTOPRAZOLE 40 MG TABLET PO SCH (07:15)
[2018-11-17] MEDS: FUROSEMIDE 20 MG/2 ML VIAL IV SCH ×2 (07:15→16:37)
--- NOTE | 2018-11-17 08:29 | Internal Med Progress Note ---
Medical - PN: Subj Patient information: Note initiated : 11/17/18 at 8:21 am Service Date, if different from initiated Date: [] Patient: Izzy Casey a 73 y/o F admitted on 11/12/18 for Hypoxia, Fever. Chief Complaint: [] Interval history: Ms. Casey is a 73 year old F who lives alone with the help of caregiver provided to [employer]. By history patient is developmental delayed. Over the last few days patient has been getting progressively weak fatigued and unable to function. Today she she was brought into the ER with symptoms of altered mental status, confusion and gradual progression of her weakness over the last 1 week. Most of the history is obtained from review of medical records. Patient is unable to provide any history. No family members are present. Initial workup was significant for septic shock secondary to significant pyuria. Patient was started on crystalloid/broad antibiotics after cultures were drawn. He was initiated on vasopressors. Hospitalist service was consulted. Initial venous lactate is over 3. At the time of evaluation patient is barely able to open eyes. She is very drowsy. Her initial sofa score is 3. [place] score 16. Patient will be admitte d to ICU until further history could be obtained, she has been started on broad antibiotic coverage/pressure/crystalloids and undergoing sepsis management protocol. A central line has been secured by anesthesia On arrival to ICU patient's systolics start dropping and was started on pressors. Ongoing crystalloid/broad antibiotic coverage. Ongoing sepsis management per guidelines 11/13-patient overnight on pressors. Improving urine output. Improving mental status change. White count at 19,000 with left shift. Lactic acid 3.1, creatinine 1.3, blood and urine cultures pending. Clinical improvement noted. On broad antibiotic coverage. 11/14-septic shock improving patient currently being weaned off Levophed. Systolics at goal. E. coli bacteremia. Pansensitive E. coli on urine culture however blood cultures sensitivity pending. Surveillance cultures performed. Patient complains of right-sided flank and lateral hip pain. Consider imaging if pain persists due to risk of hematogenous seeding of bacteria. Continue antibiotic coverage and de-escalate based on blood culture sensitivities. Patient clinically improved now alert and oriented. Improving endorgan dysfunction. White count down from 19-10.9. Platelet count is down to 94 likely secondary to heparin effect/severe sepsis early consumptive process. DC heparin and changed to Arixtra. Started on diuretics. Generalized edema from fluid resuscitation 11/15-patient doing well. Pansensitive E. coli on cultures. DC Zosyn and switch to Rocephin. DC central line. Transfer to telemetry. Off pressors and hemodynamically stable. White count down from 19,000-7.9. Abdominal ultrasound does not show hydronephrosis or nephrolithiasis. Ongoing rehab. Tolerating diet. Mentation normalized. No telemetry events. Creatinine normalized 2.8 11/16-patient doing well. No overnight events. White count continues to down trend. Afebrile. Flank pain improved. Renal function normalized. Mentation at baseline. Transfer to medical floor. Continue antibiotic coverage for total of 14 days from last negative blood culture in the setting of pyelonephritis/E. coli bacteremia. Anticipate discharge in 24-48 hours 11/17 No overnight events. Slept well. Has sinus congestion. Denies coughing shortness of breath chest pain stomach pain. Walk for 50 feet with physical therapy yesterday. Reported diarrhea overnight. Review of Systems: denies headache/fever/chills/nausea/vomiting/chest or abdominal pain/cough /dyspnea. Otherwise see above. - Constitutional Vitals: Vital Signs Temp Pulse Resp BP Pulse Ox 97.6 F 64 16 122/60 95 11/17/18 06:40 11/17/18 03:45 11/17/18 06:40 11/17/18 06:40 11/17/18 06:40 Period Temp Pulse Resp BP Sys/Paige Pulse Ox Last 24 Hr 96.9 F-98.3 F 62-65 12-22 122-154/46-94 94-98 Intake and Output 11/16/18 11/17/18 11/17/18 21:59 05:59 13:59 Intake Total 240 0 Output Total 2 2 1 Balance 238 -2 -1 Weight 102.058 kg Intake & Output: Intake & Output 11/16/18 11/17/18 11/17/18 21:59 05:59 13:59 Intake Total 240 0 Output Total 2 2 1 Balance 238 -2 -1 Weight 102.058 kg Intake: Oral 240 0 Output: # of times incontinent of urine 2 2 1 Other: Meal Dinner Percent of Meal Consumed 75% Feeding Ability Independent Stool Size Large Large Stool Color Brown Brown Stool Consistency Soft Soft # Voids 1 # Bowel Movements 1 1 # of times incontinent of 1 Bowels Exam: General: Alert, Awake, No acute Distress, obese Eyes/N/T: EOMI, Head/Neck: neck supple, CV: RRR, 2/6 SM Pulm: Clear b/l, no wheezing/rhonchi/rales Abd: soft, nontender, +BS x4 Ext: no clubbing/cyanosis, trace bilateral lower extremity edema Neuro: Alert, no focal deficits, moves all extremities, Skin: warm/dry Medical - PN: Obj Da - Labs CBC & Chem 7: 11/16/18 03:41 11/16/18 03:41 Labs: Abnormal Lab Results 11/16/18 11/16/18 11/15/18 03:41 03:41 03:25 RBC 2.94 L Hgb 8.3 L Hct 25.5 L RDW 15.3 H Plt Count 121 L MPV 10.9 H WBC Morphology Toxic Granulation RBC Morphology Anisocytosis Chloride 109 H Carbon Dioxide 31 H Anion Gap 5.0 L 4.0 L Glucose 129 H 108 H Phosphorus 1.7 L Total Protein 5.4 L 5.5 L Albumin 2.4 L 2.2 L Albumin/Globulin Ratio 0.8 L 0.7 L Triglycerides 152 H 11/15/18 03:25 RBC 2.98 L Hgb 8.3 L Hct 26.0 L RDW 15.7 H Plt Count 99 L MPV 11.4 H WBC Morphology Abnorm A Toxic Granulation 1+ A RBC Morphology Abnorm A Anisocytosis 1+ A Chloride Carbon Dioxide Anion Gap Glucose Phosphorus Total Protein Albumin Albumin/Globulin Ratio Triglycerides Meds: Medications Acetaminophen (Tylenol) 650 mg PO Q4-6HP PRN PRN Reason: PAIN/FEVER > 101 Albuterol Sulfate (Ventolin) 2 puff INH Q6HP PRN PRN Reason: COUGH, SOB, WHEEZING Amlodipine Besylate (Norvasc) 5 mg PO QDAY [facility] Atenolol (Tenormin) 12.5 mg PO HS [facility] Last Admin: 11/16/18 20:17 Dose: 12.5 mg Documented by: Citalopram Hydrobromide (Celexa) 40 mg PO QDAY [facility] Clopidogrel Bisulfate (Plavix) 75 mg PO QDAY [facility] Diagnostic Test (Pha) (Accu-Chek) 1 each FS ACHS [facility] Last Admin: 11/17/18 07:15 Dose: 1 each Documented by: Docusate Sodium (Colace) 100 mg PO BID [facility] Last Admin: 11/16/18 20:18 Dose: 100 mg Documented by: Fondaparinux (Arixtra) 2.5 mg SQ DAILY [facility] Furosemide (Lasix) 20 mg IV BIDD [facility] Last Admin: 11/17/18 07:15 Dose: 20 mg Documented by: Ceftriaxone Sodium 2 gm/ (Dextrose) 50 mls @ 100 mls/hr IV Q24H [facility] Magnesium Sulfate (Magnesium Sulfate) 2 gm in 50 mls @ 50 mls/hr IV UD PRN PRN Reason: MG = or < 1.7 Acetaminophen (Ofirmev) 1,000 mg in 100 mls @ 200 mls/hr IV Q6HP PRN PRN Reason: PAIN/FEVER > 101 Insulin Human Lispro (Humalog) 0 unit SQ [facility]; Protocol Last Admin: 11/16/18 20:28 Dose: 2 units Documented by: Loratadine (Claritin) 10 mg PO DAILYP PRN PRN Reason: CONGESTION Losartan Potassium (Cozaar) 50 mg PO QDAY [facility] Ondansetron HCl (Zofran) 4 mg IV Q4-6HP PRN PRN Reason: Nausea And Vomiting Pantoprazole Sodium (Protonix) 40 mg PO QAMAC [facility] Last Admin: 11/17/18 07:15 Dose: 40 mg Documented by: Potassium Chloride (Klor-Con) 40 meq PO DAILYP PRN PRN Reason: K+ < 3.5 Pregabalin (Lyrica) 150 mg PO BID [facility] Last Admin: 11/16/18 20:19 Dose: 150 mg Documented by: Senna/Docusate Sodium (Senna Plus Tablet) 1 tab PO HS [facility] Last Admin: 11/16/18 20:18 Dose: 1 tab Documented by: Simvastatin (Zocor) 10 mg PO QHS [facility] Last Admin: 11/16/18 20:19 Dose: 10 mg Documented by: Sitagliptin Phosphate (Januvia) 50 mg PO DAILY [facility] Sodium Chloride (Saline Flush) 10 ml IV UD PRN PRN Reason: FLUSH Sodium Chloride (Saline Flush) 10 ml IV Q12 [facility] Last Admin: 11/16/18 20:20 Dose: 10 ml Documented by: Sodium Chloride (Saline Flush) 10 ml IV Q8 [facility] Last Admin: 11/17/18 06:10 Dose: 10 ml Documented by: Tramadol HCl (Ultram) 50 mg PO TID [facility] Last Admin: 11/16/18 20:27 Dose: 50 mg Documented by: Trazodone HCl (Desyrel) 150 mg PO HS [facility] Last Admin: 11/16/18 20:17 Dose: 150 mg Documented by: Medical - PN: A/P - Time Spent With Patient Total time spent is greater than 50% in coordination of care (as documented) at patient's floor/unit and/or counseling patient: - Narrative A/P Narrative: A: *E. coli bacteremia-surveillance cultures negative so far. *Septic shock-clinically resolved. Off pressors. *Complicated E. coli UTI /acute right-sided pyelonephritis: -renal ultrasound no evidence of hydronephrosis. *Left apical pneumonia-clinically clinical improvement noted -Currently on 1L oxygen, down from 5L on admit *DM type II continue basal prandial insulin *Anxiety disorder continue citalopram *History of CAD continue Plavix *history of hypertension: back on home meds Plan: -De-escalate antibiotic to Rocephin. Continue Rocephin through 11/26 -Continue diuresis -wean off O2 -IS/Acapella -pt/ot -ppx: heparin full code Medical - PN: Qual - VTE Deep Vein Thrombosis/Pulmonary Embolism Present on Admission: No
[2018-11-17] MEDS: cefTRIAXone 2 GM in DEXTROSE 5% IN WATER 50 ML IV SCH (10:02)
[2018-11-17] MEDS: FONDAPARINUX SODIUM 2.5 MG/0.5 ML SYRINGE SQ SCH (10:02)
[2018-11-17] MEDS: INSULIN LISPRO 1 UNIT/0.01 ML UNIT SQ SCH ×4 (10:02→19:55)
[2018-11-17] MEDS: sitaGLIPtin 50 MG TABLET PO SCH (10:03)
[2018-11-17] MEDS: PREGABALIN 150 MG CAPSULE PO SCH ×2 (10:03→19:49)
[2018-11-17] MEDS: CLOPIDOGREL 75 MG TABLET PO SCH (10:03)
[2018-11-17] MEDS: traMADol 50 MG TABLET PO SCH ×3 (10:03→19:49)
[2018-11-17] MEDS: LOSARTAN 50 MG TABLET PO SCH (10:03)
[2018-11-17] MEDS: amLODIPine 5 MG TABLET PO SCH (10:03)
[2018-11-17] MEDS: CITALOPRAM 20 MG TABLET PO SCH (10:03)
[2018-11-17] MEDS: DOCUSATE SODIUM 100 MG CAPSULE PO SCH (10:35)
[2018-11-17] MEDS ORDERED: LOPERAMIDE 2 MG CAPSULE PO PRN (15:11)
[2018-11-17] MEDS: SIMVASTATIN 10 MG TABLET PO SCH (19:49)
[2018-11-17] MEDS: traZODone HCL 150 MG TABLET PO SCH (19:49)
[2018-11-17] MEDS: ATENOLOL 50 MG TABLET PO SCH (19:50)
[2018-11-18] MEDS: 0.9 % SODIUM CHLORIDE 10 ML SYRINGE IV SCH ×5 (05:02→20:03)
[2018-11-18] MEDS: PANTOPRAZOLE 40 MG TABLET PO SCH (07:14)
[2018-11-18] MEDS: cefTRIAXone 2 GM in DEXTROSE 5% IN WATER 50 ML IV SCH (08:30)
[2018-11-18] MEDS: CLOPIDOGREL 75 MG TABLET PO SCH (08:30)
[2018-11-18] MEDS: PREGABALIN 150 MG CAPSULE PO SCH ×2 (08:30→20:02)
[2018-11-18] MEDS: traMADol 50 MG TABLET PO SCH ×3 (08:30→20:02)
[2018-11-18] MEDS: LOSARTAN 50 MG TABLET PO SCH (08:30)
[2018-11-18] MEDS: CITALOPRAM 20 MG TABLET PO SCH (08:30)
[2018-11-18] MEDS: INSULIN LISPRO 1 UNIT/0.01 ML UNIT SQ SCH ×4 (08:31→20:03)
[2018-11-18] MEDS: sitaGLIPtin 50 MG TABLET PO SCH (08:31)
[2018-11-18] MEDS: FUROSEMIDE 20 MG/2 ML VIAL IV SCH ×2 (08:31→17:04)
[2018-11-18] MEDS: amLODIPine 5 MG TABLET PO SCH (08:31)
[2018-11-18] MEDS: FONDAPARINUX SODIUM 2.5 MG/0.5 ML SYRINGE SQ SCH (08:31)
--- NOTE | 2018-11-18 09:03 | Internal Med Progress Note ---
Medical - PN: Subj Patient information: Note initiated : 11/18/18 at 9:03 am Service Date, if different from initiated Date: [] Patient: Izzy Casey a 73 y/o F admitted on 11/12/18 for Hypoxia, Fever. Chief Complaint: [] Interval history: Ms. Casey is a 73 year old F who lives alone with the help of caregiver provided to [employer]. By history patient is developmental delayed. Over the last few days patient has been getting progressively weak fatigued and unable to function. Today she she was brought into the ER with symptoms of altered mental status, confusion and gradual progression of her weakness over the last 1 week. Most of the history is obtained from review of medical records. Patient is unable to provide any history. No family members are present. Initial workup was significant for septic shock secondary to significant pyuria. Patient was started on crystalloid/broad antibiotics after cultures were drawn. He was initiated on vasopressors. Hospitalist service was consulted. Initial venous lactate is over 3. At the time of evaluation patient is barely able to open eyes. She is very drowsy. Her initial sofa score is 3. Kings[place] score 16. Patient will be admitte d to ICU until further history could be obtained, she has been started on broad antibiotic coverage/pressure/crystalloids and undergoing sepsis management protocol. A central line has been secured by anesthesia On arrival to ICU patient's systolics start dropping and was started on pressors. Ongoing crystalloid/broad antibiotic coverage. Ongoing sepsis management per guidelines 11/13-patient overnight on pressors. Improving urine output. Improving mental status change. White count at 19,000 with left shift. Lactic acid 3.1, creatinine 1.3, blood and urine cultures pending. Clinical improvement noted. On broad antibiotic coverage. 11/14-septic shock improving patient currently being weaned off Levophed. Systolics at goal. E. coli bacteremia. Pansensitive E. coli on urine culture however blood cultures sensitivity pending. Surveillance cultures performed. Patient complains of right-sided flank and lateral hip pain. Consider imaging if pain persists due to risk of hematogenous seeding of bacteria. Continue antibiotic coverage and de-escalate based on blood culture sensitivities. Patient clinically improved now alert and oriented. Improving endorgan dysfunction. White count down from 19-10.9. Platelet count is down to 94 likely secondary to heparin effect/severe sepsis early consumptive process. DC heparin and changed to Arixtra. Started on diuretics. Generalized edema from fluid resuscitation 11/15-patient doing well. Pansensitive E. coli on cultures. DC Zosyn and switch to Rocephin. DC central line. Transfer to telemetry. Off pressors and hemodynamically stable. White count down from 19,000-7.9. Abdominal ultrasound does not show hydronephrosis or nephrolithiasis. Ongoing rehab. Tolerating diet. Mentation normalized. No telemetry events. Creatinine normalized 2.8 11/16-patient doing well. No overnight events. White count continues to down trend. Afebrile. Flank pain improved. Renal function normalized. Mentation at baseline. Transfer to medical floor. Continue antibiotic coverage for total of 14 days from last negative blood culture in the setting of pyelonephritis/E. coli bacteremia. Anticipate discharge in 24-48 hours 11/17 No overnight events. Slept well. Has sinus congestion. Denies coughing shortness of breath chest pain stomach pain. Walk for 50 feet with physical therapy yesterday. Reported diarrhea overnight. 11/18 Slept well again, no overnight events. No new complaints. Per nurse note stool soft rather than loose. Review of Systems: denies headache/fever/chills/nausea/vomiting/chest or abdominal pain/cough/dyspnea. Otherwise see above. - Constitutional Vitals: Vital Signs Temp Pulse Resp BP Pulse Ox 97.3 F 61 18 109/60 96 11/18/18 06:52 11/18/18 03:36 11/18/18 06:52 11/18/18 06:52 11/18/18 06:52 Period Temp Pulse Resp BP Sys/Paige Pulse Ox Last 24 Hr 97.3 F-97.9 F 60-70 18-26 109-166/44-70 90-96 Intake and Output 11/17/18 11/18/18 11/18/18 21:59 05:59 13:59 Intake Total 480 200 Output Total 3 1 51 Balance 477 199 -51 Weight 97.749 kg Intake & Output: Intake & Output 11/17/18 11/18/18 11/18/18 21:59 05:59 13:59 Intake Total 480 200 Output Total 3 1 51 Balance 477 199 -51 Weight 97.749 kg Intake: Oral 480 200 Output: Void Amount 50 # of times incontinent of urine 3 1 1 Other: Meal Dinner Percent of Meal Consumed 100% Feeding Ability Independent Urine Color Bright Yellow Urine Odor Normal Stool Size Small Stool Color Brown Stool Consistency Soft # Voids 1 1 1 # Bowel Movements 1 Exam: General: Alert, Awake, No acute Distress, obese Eyes/N/T: EOMI, Head/Neck: neck supple, CV: RRR, 2/6 SM Pulm: Clear b/l, no wheezing/rhonchi/rales Abd: soft, nontender, +BS x4 Ext: no clubbing/cyanosis, trace bilateral lower extremity edema Neuro: Alert, no focal deficits, moves all extremities, Skin: warm/dry Medical - PN: Obj Da - Labs CBC & Chem 7: 11/16/18 03:41 11/16/18 03:41 Labs: Abnormal Lab Results 11/16/18 11/16/18 03:41 03:41 RBC 2.94 L Hgb 8.3 L Hct 25.5 L RDW 15.3 H Plt Count 121 L MPV 10.9 H Carbon Dioxide 31 H Anion Gap 5.0 L Glucose 129 H Total Protein 5.4 L Albumin 2.4 L Albumin/Globulin Ratio 0.8 L Triglycerides 152 H Meds: Medications Acetaminophen (Tylenol) 650 mg PO Q4-6HP PRN PRN Reason: PAIN/FEVER > 101 Albuterol Sulfate (Ventolin) 2 puff INH Q6HP PRN PRN Reason: COUGH, SOB, WHEEZING Amlodipine Besylate (Norvasc) 5 mg PO QDAY [facility] Last Admin: 11/18/18 08:31 Dose: 5 mg Documented by: Atenolol (Tenormin) 12.5 mg PO [facility] Last Admin: 11/17/18 19:50 Dose: 12.5 mg Documented by: Citalopram Hydrobromide (Celexa) 40 mg PO QDAY [facility] Last Admin: 11/18/18 08:30 Dose: 40 mg Documented by: Clopidogrel Bisulfate (Plavix) 75 mg PO QDAY [facility] Last Admin: 11/18/18 08:30 Dose: 75 mg Documented by: Diagnostic Test (Pha) (Accu-Chek) 1 each FS ACHS [facility] Last Admin: 11/18/18 07:13 Dose: 1 each Documented by: Fondaparinux (Arixtra) 2.5 mg SQ DAILY [facility] Last Admin: 11/18/18 08:31 Dose: 2.5 mg Documented by: Furosemide (Lasix) 20 mg IV BIDD [facility] Last Admin: 11/18/18 08:31 Dose: 20 mg Documented by: Ceftriaxone Sodium 2 gm/ (Dextrose) 50 mls @ 100 mls/hr IV Q24H [facility] Last Admin: 11/18/18 08:30 Dose: 100 mls/hr Documented by: Magnesium Sulfate (Magnesium Sulfate) 2 gm in 50 mls @ 50 mls/hr IV UD PRN PRN Reason: MG = or < 1.7 Acetaminophen (Ofirmev) 1,000 mg in 100 mls @ 200 mls/hr IV Q6HP PRN PRN Reason: PAIN/FEVER > 101 Insulin Human Lispro (Humalog) 0 unit SQ ACHS [facility]; Protocol Last Admin: 11/18/18 08:31 Dose: 1 units Documented by: Loperamide HCl (Imodium) 2 mg PO UD PRN PRN Reason: Diarrhea Loratadine (Claritin) 10 mg PO DAILYP PRN PRN Reason: CONGESTION Losartan Potassium (Cozaar) 50 mg PO QDAY [facility] Last Admin: 11/18/18 08:30 Dose: 50 mg Documented by: Ondansetron HCl (Zofran) 4 mg IV Q4-6HP PRN PRN Reason: Nausea And Vomiting Pantoprazole Sodium (Protonix) 40 mg PO QAMAC [facility] Last Admin: 11/18/18 07:14 Dose: 40 mg Documented by: Potassium Chloride (Klor-Con) 40 meq PO DAILYP PRN PRN Reason: K+ < 3.5 Pregabalin (Lyrica) 150 mg PO BID [facility] Last Admin: 11/18/18 08:30 Dose: 150 mg Documented by: Simvastatin (Zocor) 10 mg PO QHS [facility] Last Admin: 11/17/18 19:49 Dose: 10 mg Documented by: Sitagliptin Phosphate (Januvia) 50 mg PO DAILY [facility] Last Admin: 11/18/18 08:31 Dose: 50 mg Documented by: Sodium Chloride (Saline Flush) 10 ml IV UD PRN PRN Reason: FLUSH Sodium Chloride (Saline Flush) 10 ml IV Q12 [facility] Last Admin: 11/18/18 08:31 Dose: 10 ml Documented by: Sodium Chloride (Saline Flush) 10 ml IV Q8 [facility] Last Admin: 11/18/18 05:02 Dose: 10 ml Documented by: Tramadol HCl (Ultram) 50 mg PO TID [facility] Last Admin: 11/18/18 08:30 Dose: 50 mg Documented by: Trazodone HCl (Desyrel) 150 mg PO HS [facility] Last Admin: 11/17/18 19:49 Dose: 150 mg Documented by: Medical - PN: A/P - Time Spent With Patient Total time spent is greater than 50% in coordination of care (as documented) at patient's floor/unit and/or counseling patient: - Narrative A/P Narrative: A: *E. coli bacteremia-surveillance cultures negative so far. *Septic shock-clinically resolved. Off pressors. *Complicated E. coli UTI /acute right-sided pyelonephritis: -renal ultrasound no evidence of hydronephrosis. *Left apical pneumonia-clinically clinical improvement noted -now on room air, down from 5L on admit *acute hypoxic resp failure: 2/2 above *DM type II continue basal prandial insulin *Anxiety disorder continue citalopram *History of CAD continue Plavix *history of hypertension: back on home meds Plan: -De-escalate antibiotic to Rocephin. Continue Rocephin while inpt and transition to PO cipro upon d/c -wean off O2 -IS/Acapella -pt/ot -d/c likely in AM with caregiver; caregiver unavailable over weekend -ppx: heparin full code Medical - PN: Qual - VTE Deep Vein Thrombosis/Pulmonary Embolism Present on Admission: No
[2018-11-18] MEDS: traZODone HCL 150 MG TABLET PO SCH (20:02)
[2018-11-18] MEDS: SIMVASTATIN 10 MG TABLET PO SCH (20:02)
[2018-11-18] MEDS: CIPROFLOXACIN 500 MG TABLET PO SCH (20:02)
[2018-11-18] MEDS: ATENOLOL 50 MG TABLET PO SCH (20:02)
[2018-11-19] MEDS: 0.9 % SODIUM CHLORIDE 10 ML SYRINGE IV SCH ×2 (07:01→07:26)
[2018-11-19] MEDS: PANTOPRAZOLE 40 MG TABLET PO SCH (07:04)
[2018-11-19] MEDS: INSULIN LISPRO 1 UNIT/0.01 ML UNIT SQ SCH (07:26)
[2018-11-19] MEDS: amLODIPine 5 MG TABLET PO SCH (08:23)
[2018-11-19] MEDS: PREGABALIN 150 MG CAPSULE PO SCH (08:23)
[2018-11-19] MEDS: LOSARTAN 50 MG TABLET PO SCH (08:23)
[2018-11-19] MEDS: CITALOPRAM 20 MG TABLET PO SCH (08:23)
[2018-11-19] MEDS: sitaGLIPtin 50 MG TABLET PO SCH (08:23)
[2018-11-19] MEDS: CLOPIDOGREL 75 MG TABLET PO SCH (08:23)
[2018-11-19] MEDS: CIPROFLOXACIN 500 MG TABLET PO SCH (08:24)
[2018-11-19] MEDS: traMADol 50 MG TABLET PO SCH (08:24)
[2018-11-19] MEDS: FONDAPARINUX SODIUM 2.5 MG/0.5 ML SYRINGE SQ SCH (08:24)
[2018-11-19] MEDS: FUROSEMIDE 20 MG/2 ML VIAL IV SCH (08:24)
== END 2018-11-19 12:25 | disposition home health service (06) | DRG 871 ==
LOC: ED 15:20 → ICU 20:08 → MEDSUR 11-16 12:22
PROVIDERS: ADMIT Internal Medicine; ATTEND Internal Medicine

== ENCOUNTER 2019-01-12 10:05 | Inpatient (IN) ==
[2019-01-12] MEDS ORDERED: ONDANSETRON 4 MG/2 ML VIAL IV ONE (10:33)
[2019-01-12] MEDS ORDERED: LACTATED RINGERS 1,000 ML IV ONE (10:33)
[2019-01-12] MEDS ORDERED: PANTOPRAZOLE 40 MG VIAL IV ONE (10:35)
--- NOTE | 2019-01-12 10:48 | Emergency Department Note ---
Neuro HPI - General Chief Complaint: Neuro Symptoms/Deficit Stated Complaint: decreased LOC Time Seen by Provider: 01/12/19 10:29 Mode of arrival: EMS - History of Present Illness HPI Narrative: Patient found this morning by via caregiver in bed with dried vomitus on her chest. Apparently she had gotten up during the night, got back to bed but then vomited up. She is not her usual self usually she is more talkative, caregiver noted that she seemed a little confused as well. She is not volunteering a lot of words however she does not have slurred speech, she follows commands seems generally weak. She does tell me that she's had a history of CVA, she's has multiple medical problems and has caregivers on a daily basis and. The caregiver last night at 5 PM did not note anything unusual, normally she gets around in the apartment with a walker and without assistance. She was too weak to stand or walk today. She denies headache, denies chest pain, difficult historian at this time. - Related Data Home Medications: Home Medications Medication Instructions Recorded Confirmed lorazepam 1 mg tablet 1 mg PO QHS tab 08/02/18 12/13/18 Citalopram Hydrobromide 40 mg PO QDAY 11/13/18 12/13/18 [Citalopram HBr] Dexlansoprazole [Dexilant] 30 mg PO DAILY 11/13/18 12/13/18 Ferrous Sulfate 325 mg PO QHS 11/13/18 12/13/18 Furosemide [Lasix] 20 mg PO QAM 11/13/18 12/13/18 Pregabalin [Lyrica] 150 mg PO BID 11/13/18 12/13/18 glipiZIDE [Glucotrol] 10 mg PO QHS 11/13/18 12/13/18 sitaGLIPtin [Januvia] 100 mg PO DAILY 11/13/18 12/13/18 Previous Rx's Medication Instructions Recorded amlodipine 5 mg tablet 5 mg PO QDAY #90 tab 08/02/18 clopidogrel 75 mg tablet 75 mg PO QDAY #90 tab 08/02/18 dexlansoprazole 30 mg 30 mg PO QDAY #90 cap 08/02/18 capsule,biphase delayed release loratadine 10 mg tablet 10 mg PO QDAY PRN #90 tab 08/02/18 losartan 50 mg tablet 50 mg PO QDAY #90 tab 08/02/18 sennosides 8.6 mg tablet 8.6 mg PO QHS PRN #90 tab 08/02/18 simvastatin 10 mg tablet 10 mg PO QHS #90 tab 08/02/18 methocarbamol 500 mg tablet See Rx Instructions PO Q6H PRN #30 09/19/18 tab pregabalin 300 mg capsule 300 mg PO BID #60 cap 10/11/18 albuterol sulfate HFA 90 2 puff INHALATION Q6H PRN #8.5 g 10/12/18 mcg/actuation aerosol inhaler trazodone 150 mg tablet 300 mg PO QHS #180 tab 10/18/18 atenolol 25 mg tablet 12.5 mg PO QHS #45 tab 11/12/18 Lactobacillus [Culturelle] 1 cap PO BID #60 cap 11/18/18 hydrocodone 5 mg-acetaminophen 325 1 tab PO QHS PRN #90 tab 12/13/18 mg tablet nitrofurantoin 100 mg PO BID #20 cap 12/15/18 monohydrate/macrocrystals 100 mg capsule Allergies/Adverse Reactions: Allergies Allergy/AdvReac Type Severity Reaction Status Date / Time aspirin Allergy Unknown unknown Verified 12/13/18 13:54 oxybutynin Allergy Unknown unknown Verified 12/13/18 13:54 celecoxib [From Celebrex] AdvReac Mild Gastrointestinal Verified 12/13/18 13:54 Upset lisinopril AdvReac Mild Other Verified 12/13/18 13:54 nabumetone [From Relafen] AdvReac Mild Gastrointestinal Verified 12/13/18 13:54 Upset NSAIDS (Non-Steroidal AdvReac Mild Gastrointestinal Verified 12/13/18 13:54 Anti-Inflamma Upset Review of Systems Limitations: ROS unobtainable due to patients medical condition Past Medical History - Past Medical History Source: nursing notes reviewed Medical history: Reports: DM, GERD, hyperlipidemia, arthritis, hypertension, other, CVA, obesity Psychiatric history: Reports: anxiety, depression Surgical history ED: Reports: knee replacement (Bilateral), orthopedic, other (right ankle fracture (severe, open).) Family history: Reports: non-contributory - Social History smoking status: Never smoker Alcohol use: Reports: None Drug use: Reports: none. Denies: marijuana Physical Exam Limitations: altered mental status General appearance: alert, in no apparent distress, lethargic Head: atraumatic, normocephalic, normal inspection Eye: Present: normal appearance, PERRL, EOMI. Absent: conjunctival injection, nystagmus ENT: normal exam, mucous membranes moist, TM's normal bilaterally, normal external ear exam Neck: Present: normal inspection, full ROM, trachea midline. Absent: tenderness, meningismus, lymphadenopathy Chest: Present: normal inspection, symmetric chest wall rise Respiratory: Present: normal lung sounds bilaterally, other (diminished breath sounds bilaterally.) Cardiovascular: Present: regular rate, normal rhythm Abdominal: Present: soft, normal bowel sounds. Absent: distention, tenderness, guarding Extremities: Present: normal inspection, other (week in all fours, she has a history of left shoulder pain and is unable to leave lift the left arm past horizontal secondary to previous shoulder injury. Pulpit Operator strength diminished in all upper extremities and. Symmetrical both left and right. Barely able to lift her legs against gravity.) Back: Present: normal inspection. Absent: CVA tenderness (R), CVA tenderness (L) Neurological: Present: alert, motor sensory deficit, other (week in all fours.). Absent: reflexes normal Psychiatric: Present: normal affect Skin: Present: warm, normal color. Absent: cyanosis Course Vital Signs Pulse Rate 63 01/12/19 10:09 Respiratory Rate 23 H 01/12/19 10:09 Blood Pressure 110/44 01/12/19 10:09 Pulse Oximetry (%) 93 01/12/19 10:09 Pulse Rate 61 01/12/19 12:46 Respiratory Rate 10 L 01/12/19 12:46 Blood Pressure 120/44 01/12/19 12:46 Pulse Oximetry (%) 96 01/12/19 12:46 Neuro Symptoms/Deficit - MDM Narrative Medical decision making narrative: Head CT was negative. Urine was positive. Impression is urinary tract infection. Patient was started on Rocephin. I spoke with Dr. Agosto regarding possible admission. He will be down to reassess patient. - Lab Data Result diagrams: 01/12/19 11:26 01/12/19 11:26 Lab Results 01/12/19 01/12/19 01/12/19 Range/Units 11:25 11:26 11:26 WBC 14.3 H (4.5-11.0) K/mcL RBC 3.92 L (4.00-5.20) M/mcL Hgb 11.2 L (12.0-15.0) g/dL Hct 34.2 L (36.0-48.0) % MCV 87.3 (80.0-100.0) fL MCH 28.6 (26.0-34.0) pg MCHC 32.7 (31.0-36.0) g/dL RDW 15.4 H (11.5-14.5) % Plt Count 168 (140-440) K/mcL MPV 10.9 H (7.4-10.4) fL Gran % 82.9 H (38.0-78.0) % Lymph % (Auto) 6.1 L (15.5-49.0) % Thayer % (Auto) 10.9 (1.0-12.0) % Eos % (Auto) 0.1 (0.0-7.0) % Baso % (Auto) 0 (0.0-2.0) % Gran # 11.9 H (1.8-8.0) K/mcL Lymph # (Auto) 0.9 L (1.5-4.8) K/mcL Thayer # (Auto) 1.6 H (0.1-0.9) K/mcL Eos # (Auto) 0 (0.0-0.7) K/mcL Baso # (Auto) 0 (0.0-0.3) K/mcL PT (11.9-14.5) sec INR (0.9-1.1) VBG Lactic Acid (0.5-2.0) mmol/L Sodium 140 (133-145) mmol/L Potassium 4.6 (3.3-5.1) mmol/L Chloride 106 (96-108) mmol/L Carbon Dioxide 25 (22-30) mmol/L Anion Gap 9.0 (8-16) BUN 29 H (8-23) mg/dl Creatinine 1.0 (0.6-1.1) mg/dl GFR Calculation 57 Glucose 201 H (70-105) mg/dL Calcium 9.5 (8.6-10.4) mg/dl Total Bilirubin 0.3 (0.0-1.0) mg/dL AST 14 (0-37) U/l ALT 10 (0-40) U/l Alkaline Phosphatase 100 (39-117) U/L C-Reactive Protein 4.7 H (0.0-0.8) mg/dl Total Protein 6.4 (5.9-8.4) gm/dL Albumin 3.3 (3.2-5.2) gm/dL Globulin 3.1 (2.2-3.7) gm/dL Albumin/Globulin Ratio 1.1 (1.0-2.3) Lipase 31 (7-60) U/L Urine Color Yellow Urine Appearance Cloudy Urine pH 5.0 (5.0-9.0) Ur Specific Java 1.016 (1.000-1.035) Urine Protein 30 A (NEG) mg/dL Urine Glucose (UA) Negative (NEG) mg/dL Urine Ketones Neg (NEG) mg/dL Urine Occult Blood 0.03 A (<0.03) mg/dL Urine Nitrate Neg (NEG) Urine Bilirubin Neg (NEG) mg/dL Urine Urobilinogen Neg (NEG) mg/dL Ur Leukocyte Esterase 250 A (NEG) /uL Urine RBC 3 H (0-1) /hpf Urine WBC > 182 H (0-4) /hpf Ur Squamous Epith Cells 1 (0-4) /hpf Urine Bacteria Many A (0) /hpf Hyaline Casts 4 H (0-2) /lpf Urine Mucus Mod (0) /hpf Ur Culture Indicated? Yes 01/12/19 01/12/19 Range/Units 11:26 11:26 WBC (4.5-11.0) K/mcL RBC (4.00-5.20) M/mcL Hgb (12.0-15.0) g/dL Hct (36.0-48.0) % MCV (80.0-100.0) fL MCH (26.0-34.0) pg MCHC (31.0-36.0) g/dL RDW (11.5-14.5) % Plt Count (140-440) K/mcL MPV (7.4-10.4) fL Gran % (38.0-78.0) % Lymph % (Auto) (15.5-49.0) % Thayer % (Auto) (1.0-12.0) % Eos % (Auto) (0.0-7.0) % Baso % (Auto) (0.0-2.0) % Gran # (1.8-8.0) K/mcL Lymph # (Auto) (1.5-4.8) K/mcL Thayer # (Auto) (0.1-0.9) K/mcL Eos # (Auto) (0.0-0.7) K/mcL Baso # (Auto) (0.0-0.3) K/mcL PT 13.1 (11.9-14.5) sec INR 1.0 (0.9-1.1) VBG Lactic Acid 1.6 (0.5-2.0) mmol/L Sodium (133-145) mmol/L Potassium (3.3-5.1) mmol/L Chloride (96-108) mmol/L Carbon Dioxide (22-30) mmol/L Anion Gap (8-16) BUN (8-23) mg/dl Creatinine (0.6-1.1) mg/dl GFR Calculation Glucose (70-105) mg/dL Calcium (8.6-10.4) mg/dl Total Bilirubin (0.0-1.0) mg/dL AST (0-37) U/l ALT (0-40) U/l Alkaline Phosphatase (39-117) U/L C-Reactive Protein (0.0-0.8) mg/dl Total Protein (5.9-8.4) gm/dL Albumin (3.2-5.2) gm/dL Globulin (2.2-3.7) gm/dL Albumin/Globulin Ratio (1.0-2.3) Lipase (7-60) U/L Urine Color Urine Appearance Urine pH (5.0-9.0) Ur Specific [place] (1.000-1.035) Urine Protein (NEG) mg/dL Urine Glucose (UA) (NEG) mg/dL Urine Ketones (NEG) mg/dL Urine Occult Blood (<0.03) mg/dL Urine Nitrate (NEG) Urine Bilirubin (NEG) mg/dL Urine Urobilinogen (NEG) mg/dL Ur Leukocyte Esterase (NEG) /uL Urine RBC (0-1) /hpf Urine WBC (0-4) /hpf Ur Squamous Epith Cells (0-4) /hpf Urine Bacteria (0) /hpf Hyaline Casts (0-2) /lpf Urine Mucus (0) /hpf Ur Culture Indicated? Disposition Pt seen by SENIOR FUNCTIONAL ANALYST/PA only: No Clinical Impression: Urinary tract infection Disposition: Xfer As Inpt ([facility]) Condition: Fair Referrals: Rob Pires DO [Primary Care Provider] -
[2019-01-12 12:00] LABS: Basophils # (Auto) 0 K/mcL (0.0-0.3); Basophils % (Auto) 0 % (0.0-2.0); Eosinophils # (Auto) 0 K/mcL (0.0-0.7); Eosinophils % (Auto) 0.1 % (0.0-7.0); Granulocytes % (Auto) 82.9 % (38.0-78.0); Lymphocytes # (Auto) 0.9 K/mcL (1.5-4.8); Lymphocytes % (Auto) 6.1 % (15.5-49.0); Mean Cell Volume 87.3 fL (80.0-100.0); Mean Corpuscular HGB Conc 32.7 g/dL (31.0-36.0); Monocytes # (Auto) 1.6 K/mcL (0.1-0.9); Monocytes % (Auto) 10.9 % (1.0-12.0); Platelet Count 168 K/mcL (140-440); RBC 3.92 M/mcL (4.00-5.20); Red Cell Distribution Width 15.4 % (11.5-14.5)
[2019-01-12 12:19] LABS: ALT/SGPT 10 U/l (0-40); Albumin 3.3 gm/dL (3.2-5.2); Albumin/Globulin Ratio 1.1 (1.0-2.3); Alkaline Phosphatase 100 U/L (39-117); Blood Urea Nitrogen 29 mg/dl (8-23); C-Reactive Protein 4.7 mg/dl (0.0-0.8); Lipase 31 U/L (7-60)
[2019-01-12 12:27] LABS: Appearance,Urine CLOUDY; Bacteria,Urine MANY /hpf (0); Bilirubin,Urine NEG (NEG); Color,Urine YELLOW; Glucose,Urine (UA) NEGATIVE (NEG); Leukocyte Esterase,Urine 250 /uL (NEG); Mucus,Urine MOD /hpf (0); Protein,Urine 30 mg/dL (NEG); Specific Gravity,Urine 1.016 (1.000-1.035); Urine Blood 0.03 mg/dL (<0.03); Urine Hyaline Cast 4 /lpf (0-2); Urine RBC 3 /hpf (0-1); Urine Squamous Epithelial Cell 1 /hpf (0-4); Urine WBC > 182 /hpf (0-4); Urobilinogen,Urine NEG (NEG)
[2019-01-12] MEDS ORDERED: cefTRIAXone 1 GM VIAL IV ONE (12:46)
--- NOTE | 2019-01-12 13:03 | Cat Scan Report ---
History: Altered level of consciousness TECHNIQUE: The brain was imaged without contrast at 2.5 mm intervals. The radiation exposure was limited using dose reduction technology. FINDINGS: There is mild generalized cerebral atrophy, most apparent in the frontal lobes. There are patchy areas of decreased attenuation in the white matter, best seen in the left frontal lobe. There is no cortical infarct. No hemorrhage or mass effect are present. The ventricles are normal in size. There is no abnormal extra-axial fluid collection. Comparison with the prior exam from 06/01/18 shows no significant change. IMPRESSION: Stable age-related degenerative changes and no acute abnormality. Dr. Daniel was called with the results Interpreted and Authenticated by: Jorje Elder 01/12/19
--- NOTE | 2019-01-12 13:35 | XRay Report ---
HISTORY: Decreased level of consciousness and vomiting FINDINGS: Heart is mild to moderately enlarged but magnified by portable technique. The congestive heart failure seen on 11/12/18 has resolved. There is no evidence of pneumonia. There is mild parenchymal scarring inferiorly and medially at the left lung base which has remained stable since the prior chest CT done on 11/12/18. Minor pleural thickening in the minor fissure. Previously seen right side central venous catheter has been removed. IMPRESSION: Stable cardiomegaly and no acute abnormality Interpreted and Authenticated by: Jorje Elder 01/12/19
--- NOTE | 2019-01-12 14:02 | Internal Med History&Physical ---
Medical - H&P: [facility] Patient information: Note initiated : 01/12/19 at 1:59 pm Service Date, if different from initiated Date: [] Patient: Izzy Casey a 73 y/o F admitted on for decreased LOC. Chief Complaint: [] History of present illness: Ms. Casey is a 73 year old F Presents the ED with decreased level of consciousness. She was found by her family and marriage counsellor with dried vomit on her chest while she was in bed. She was less responsive. In the ED she was lethargic as he had a leukocytosis, and urine consistent with signs of urinary tract infection. She had developed elevated CRP but lactate was okay she had dry mucous membranes. Chest x-ray was okay and CT brain showed chronic changes but nothing acute urinalysis with hyaline casts WBCs leukocyte esterase. Denies any cough chest pain or shortness of breath. History is of difficult to obtain given her lethargy and slow response to questions. She falls asleep easily. She was too weak to stand today. She did realize she had nausea vomiting last night. But no nausea vomiting this morning She was in her usual state of health last night per family and marriage counsellor, per notes. Review of Systems: Pertinent positive as above. Denies headache/fever/chills/nausea/vomiting/chest or abdominal pain/cough/dyspnea/diarrhea. Remaining 10 point review of systems reviewed negative Medical - H&P: [facility] Medical history: Medical History (Last Reviewed 12/13/18 @ 14:36 by Rob Pires DO) Tubular adenoma of colon (Chronic) Iron deficiency anemia (Chronic) Constipation (Chronic) Dysphagia (Chronic) Urge incontinence of urine (Chronic) Urinary incontinence (Chronic) Dermatographia (Chronic) Paresthesia (Chronic) Insomnia (Chronic) GERD (gastroesophageal reflux disease) (Chronic) Paroxysmal supraventricular tachycardia (Chronic) Hyperlipidemia (Chronic) Dermatitis (Chronic) Perleche (Chronic) Seborrheic keratosis (Chronic) Anxiety disorder (Chronic) Conversion disorder (Chronic) Developmental delay (Chronic) Osteoarthritis (Chronic) Lumbar radiculopathy (Chronic) Onychomycosis (Chronic) PVD (peripheral vascular disease) (Chronic) Diabetic peripheral neuropathy (Chronic) Diabetes mellitus, type II (Chronic) Rectal bleeding (Chronic) Mastalgia (Chronic) Patellar tendon rupture (Chronic) Foot deformity (Chronic) Tendinitis (Chronic) Menopausal syndrome (Chronic) Overactive bladder (Chronic) Past Surgical History (Last Reviewed 12/13/18 @ 14:36 by Rob Pires DO) History of bilateral knee replacement (Chronic) History of knee surgery (Acute) History of colonoscopy (Chronic 11/27/18) History of esophagogastroduodenoscopy (EGD) (Chronic 11/27/18) Family History (This Medical Record has been edited. Action required.) Mother Type 2 diabetes mellitus Arteriosclerosis of coronary artery Aunt Type 2 diabetes mellitus Malignant neoplasm Social History (Last Updated 12/13/18 @ 14:44 by Rob Pires DO) Denies tobacco or alcohol Uses a cane and walker Lives by herself with a family and marriage counsellor that comes in Medical - H&P: Meds Home Medications Medication Instructions Recorded Confirmed Type amlodipine 5 mg tablet 5 mg PO QDAY #90 tab 08/02/18 12/13/18 Rx clopidogrel 75 mg tablet 75 mg PO QDAY #90 tab 08/02/18 12/13/18 Rx dexlansoprazole 30 mg 30 mg PO QDAY #90 cap 08/02/18 12/13/18 Rx capsule,biphase delayed release loratadine 10 mg tablet 10 mg PO QDAY PRN #90 tab 08/02/18 12/13/18 Rx lorazepam 1 mg tablet 1 mg PO QHS tab 08/02/18 12/13/18 History losartan 50 mg tablet 50 mg PO QDAY #90 tab 08/02/18 12/13/18 Rx sennosides 8.6 mg tablet 8.6 mg PO QHS PRN #90 tab 08/02/18 12/13/18 Rx simvastatin 10 mg tablet 10 mg PO QHS #90 tab 08/02/18 12/13/18 Rx methocarbamol 500 mg tablet See Rx Instructions PO Q6H PRN #30 09/19/18 12/13/18 Rx tab pregabalin 300 mg capsule 300 mg PO BID #60 cap 10/11/18 12/13/18 Rx albuterol sulfate HFA 90 2 puff INHALATION Q6H PRN #8.5 g 10/12/18 12/13/18 Rx mcg/actuation aerosol inhaler trazodone 150 mg tablet 300 mg PO QHS #180 tab 10/18/18 12/13/18 Rx atenolol 25 mg tablet 12.5 mg PO QHS #45 tab 11/12/18 12/13/18 Rx Citalopram Hydrobromide 40 mg PO QDAY 11/13/18 12/13/18 History [Citalopram HBr] Dexlansoprazole [Dexilant] 30 mg PO DAILY 11/13/18 12/13/18 History Ferrous Sulfate 325 mg PO QHS 11/13/18 12/13/18 History Furosemide [Lasix] 20 mg PO QAM 11/13/18 12/13/18 History Pregabalin [Lyrica] 150 mg PO BID 11/13/18 12/13/18 History glipiZIDE [Glucotrol] 10 mg PO QHS 11/13/18 12/13/18 History sitaGLIPtin [Januvia] 100 mg PO DAILY 11/13/18 12/13/18 History Lactobacillus [Culturelle] 1 cap PO BID #60 cap 11/18/18 12/13/18 Rx hydrocodone 5 mg-acetaminophen 325 1 tab PO QHS PRN #90 tab 12/13/18 12/13/18 Rx mg tablet nitrofurantoin 100 mg PO BID #20 cap 12/15/18 Rx monohydrate/macrocrystals 100 mg capsule Allergies Allergy/AdvReac Type Severity Reaction Status Date / Time aspirin Allergy Unknown unknown Verified 12/13/18 13:54 oxybutynin Allergy Unknown unknown Verified 12/13/18 13:54 celecoxib [From Celebrex] AdvReac Mild Gastrointestinal Verified 12/13/18 13:54 Upset lisinopril AdvReac Mild Other Verified 12/13/18 13:54 nabumetone [From Relafen] AdvReac Mild Gastrointestinal Verified 12/13/18 13:54 Upset NSAIDS (Non-Steroidal AdvReac Mild Gastrointestinal Verified 12/13/18 13:54 Anti-Inflamma Upset Medical - H&P: Exam - Constitutional Vitals: Pulse Resp BP Pulse Ox 64 14 95/43 89 L 01/12/19 13:55 01/12/19 13:55 01/12/19 13:46 01/12/19 13:55 Exam: General: Sleeping when I walked in. Arousable to loud voice. No acute distress. Eyes/N/T: EOMI, PEERL, DMM Head/Neck: neck supple, normocephalic atraumatic CV: RRR, 3/6 SM, Pulm: Clear b/l, no wheezing/rhonchi/rales Abd: soft, nontender, +BS x4 Ext: no clubbing/cyanosis. Trace bilateral lower extremity edema Neuro: Sleeping when I arrived. Difficult to arouse but was arousable with large voice. Falls asleep throughout conversation but seem to stay awake longer by the end of the exam. She does follow commands. No focal deficits. However, quite lethargic. Skin: warm/dry Medical - H&P: Reslt - Labs CBC & Chem 7: 01/12/19 11:26 01/12/19 11:26 Labs: Short CBC 01/12/19 Range/Units 11:26 WBC 14.3 H (4.5-11.0) K/mcL Hgb 11.2 L (12.0-15.0) g/dL Hct 34.2 L (36.0-48.0) % Plt Count 168 (140-440) K/mcL BMP 01/12/19 11:26 Sodium 140 Potassium 4.6 Chloride 106 Carbon Dioxide 25 BUN 29 H Creatinine 1.0 Glucose 201 H Calcium 9.5 Liver Function 01/12/19 Range/Units 11:26 Total Bilirubin 0.3 (0.0-1.0) mg/dL AST 14 (0-37) U/l ALT 10 (0-40) U/l Alkaline Phosphatase 100 (39-117) U/L Albumin 3.3 (3.2-5.2) gm/dL Urine 01/12/19 Range/Units 11:25 Urine Color Yellow Urine Appearance Cloudy Urine pH 5.0 (5.0-9.0) Ur Specific [place] 1.016 (1.000-1.035) Urine Protein 30 A (NEG) mg/dL Urine Glucose (UA) Negative (NEG) mg/dL Medical - H&P: A/P - Narrative A/P Narrative: A: *UTI: *Encephalopathy, metabolic: 2/2 above *Volume depletion: *Diabetes: *h/o CVA: On Plavix, does not tolerate aspirin *CAD: *HTN/HLD: *Depression/anxiety: *GERD: * * P: -IVF -Rocephin, pending UC -Follow-up CRP -SSI -Continue home cardiac medications - -PT/OT -ppx: Lovenox/home PPI Full code
[2019-01-12] MEDS ORDERED: DEXTROSE 50% 50 ML VIAL IV PRN (15:38)
[2019-01-12] MEDS ORDERED: PROCHLORPERAZINE 10 MG/2 ML VIAL IV PRN (15:38)
[2019-01-12] MEDS ORDERED: DEXTROSE 31 GM ORAL.SUSP PO PRN (15:38)
[2019-01-12] MEDS ORDERED: IPRATROPIUM/ALBUTEROL 3 ML AMPUL.NEB NEB PRN (15:38)
[2019-01-12] MEDS ORDERED: cefTRIAXone 1 GM in DEXTROSE 5% IN WATER 50 ML IV SCH (15:38)
[2019-01-12] MEDS ORDERED: SENNOSIDES 1 TABLET PO PRN (15:38)
[2019-01-12] MEDS ORDERED: ONDANSETRON 4 MG/2 ML VIAL IV PRN (15:38)
[2019-01-12] MEDS ORDERED: ACETAMINOPHEN 325 MG TABLET PO PRN (15:38)
[2019-01-12] MEDS: 0.9 % SODIUM CHLORIDE 10 ML SYRINGE IV SCH ×2 (16:40→23:14)
[2019-01-12] MEDS: 0.9 % SODIUM CHLORIDE 1,000 ML IV SCH ×2 (16:41→23:06)
[2019-01-12] MEDS: INSULIN LISPRO 1 UNIT/0.01 ML UNIT SQ SCH ×2 (16:45→23:05)
[2019-01-12] MEDS ORDERED: METHOCARBAMOL 500 MG TABLET PO PRN ×2 (17:54→19:15)
[2019-01-12] MEDS ORDERED: HYDROcodone/APAP 5/325MG TABLET PO PRN (17:54)
[2019-01-12] MEDS ORDERED: LORazepam 1 MG TABLET PO SCH (21:00)
[2019-01-12] MEDS ORDERED: traZODone HCL 150 MG TABLET PO SCH (21:00)
[2019-01-12] MEDS ORDERED: PREGABALIN 300 MG PO SCH (21:00)
[2019-01-12] MEDS: ATENOLOL 50 MG TABLET PO SCH (23:08)
[2019-01-12] MEDS: DOCUSATE SODIUM 100 MG CAPSULE PO SCH (23:09)
[2019-01-12] MEDS: LACTOBACILLUS 1 CAPSULE PO SCH (23:10)
[2019-01-12] MEDS: glipiZIDE 5 MG TABLET PO SCH (23:13)
[2019-01-12] MEDS: FAMOTIDINE 20 MG TABLET PO SCH (23:13)
[2019-01-12] MEDS: PREGABALIN 150 MG CAPSULE PO SCH (23:13)
[2019-01-13 06:20] LABS: Basophils # (Auto) 0 K/mcL (0.0-0.3); Basophils % (Auto) 0 % (0.0-2.0); Eosinophils # (Auto) 0 K/mcL (0.0-0.7); Eosinophils % (Auto) 0.1 % (0.0-7.0); Granulocytes % (Auto) 76.6 % (38.0-78.0); Lymphocytes # (Auto) 1.3 K/mcL (1.5-4.8); Lymphocytes % (Auto) 9.8 % (15.5-49.0); Mean Cell Volume 88.3 fL (80.0-100.0); Mean Corpuscular HGB Conc 32.2 g/dL (31.0-36.0); Monocytes # (Auto) 1.8 K/mcL (0.1-0.9); Monocytes % (Auto) 13.5 % (1.0-12.0); Platelet Count 133 K/mcL (140-440); RBC 3.45 M/mcL (4.00-5.20); Red Cell Distribution Width 15.9 % (11.5-14.5)
[2019-01-13] MEDS: 0.9 % SODIUM CHLORIDE 10 ML SYRINGE IV SCH ×3 (06:28→22:59)
[2019-01-13 06:40] LABS: ALT/SGPT 10 U/l (0-40); Albumin 3.1 gm/dL (3.2-5.2); Albumin/Globulin Ratio 1.1 (1.0-2.3); Alkaline Phosphatase 74 U/L (39-117); Bilirubin,Direct < 0.2 mg/dL (0.0-0.3); Blood Urea Nitrogen 27 mg/dl (8-23); Gamma Glutamyl Transpeptidase 17 U/L (5-36); Uric Acid 6.1 mg/dL (2.5-8.0)
[2019-01-13] MEDS: INSULIN LISPRO 1 UNIT/0.01 ML UNIT SQ SCH ×4 (06:53→23:18)
--- NOTE | 2019-01-13 07:20 | Internal Med Progress Note ---
Medical - PN: Subj Patient information: Note initiated : 01/13/19 at 7:16 am Service Date, if different from initiated Date: [] Patient: Izzy Casey a 73 y/o F admitted on 01/12/19 for decreased LOC. Chief Complaint: [] Interval history: Ms. Casey is a 73 year old F Presents the ED with decreased level of consciousness. She was found by her locksmith helper with dried vomit on her chest while she was in bed. She was less responsive. In the ED she was lethargic as he had a leukocytosis, and urine consistent with signs of urinary tract infection. She had developed elevated CRP but lactate was okay she had dry mucous membranes. Chest x-ray was okay and CT brain showed chronic changes but nothing acute urinalysis with hyaline casts WBCs leukocyte esterase. Denies any cough chest pain or shortness of breath. History is of difficult to obtain given her lethargy and slow response to questions. She falls asleep easily. She was too weak to stand today. She did realize she had nausea vomiting last night. But no nausea vomiting this morning She was in her usual state of health last night per locksmith helper, per notes. 01/13 Patient quite lethargic when I visited her this morning. Nurse notes she was m ore awake this morning. Although she appears like she was when I saw her in the ED. he does somewhat arouse to loud voice but then falls asleep again. She does follow commands. Unable to get review of systems as she is not verbalizing. - Constitutional Vitals: Vital Signs Temp Pulse Resp BP Pulse Ox 97.8 F 67 20 128/75 98 01/13/19 07:06 01/13/19 04:00 01/13/19 07:06 01/13/19 07:06 01/13/19 07:06 Period Temp Pulse Resp BP Sys/Paige Pulse Ox Last 24 Hr 97.8 F-100.1 F 56-75 10-23 95-138/28-75 89-98 Intake and Output 01/12/19 01/13/19 01/13/19 21:59 05:59 13:59 Intake Total 1000 1102 Output Total 2 2 Balance 1000 1100 -2 Weight 96.162 kg Intake & Output: Intake & Output 01/12/19 01/13/19 01/13/19 21:59 05:59 13:59 Intake Total 1000 1102 Output Total 2 2 Balance 1000 1100 -2 Weight 96.162 kg Intake: IV 1000 802 Sodium Chloride 0.9% 1,000 ml @ 802 125 mls/hr IV .Q8H DAYANA Rx#: [id number] Lactated Ringers 1,000 ml @ 1000 Wide Open IV .Q0M ONE Rx#: [id number] Oral 300 Output: # of times incontinent of urine 2 2 Other: Urine Appearance Clear Urine Color Bright Yellow Exam: General: Sleeping when I walked in. Arousable to loud voice. No acute distress. obese Eyes/N/T: EOMI, PEERL Head/Neck: neck supple, CV: RRR, 3/6 SM, Pulm: Clear b/l, no wheezing/rhonchi/rales Abd: soft, nontender, +BS x4 Ext: no clubbing/cyanosis. Trace bilateral lower extremity edema Neuro: Sleeping. Difficult to arouse but was arousable with loud voice. Falls asleep easily. She does follow commands. No focal deficits. However, quite lethargic. Skin: warm/dry Medical - PN: Obj Da - Labs CBC & Chem 7: 01/13/19 04:12 01/13/19 04:11 Labs: Abnormal Lab Results 01/13/19 01/13/19 01/12/19 04:12 04:11 11:26 WBC 13.3 H 14.3 H RBC 3.45 L 3.92 L Hgb 9.8 L 11.2 L Hct 30.4 L 34.2 L RDW 15.9 H 15.4 H Plt Count 133 L MPV 11.0 H 10.9 H Gran % 82.9 H Lymph % (Auto) 9.8 L 6.1 L [place] % (Auto) 13.5 H Gran # 10.2 H 11.9 H Lymph # (Auto) 1.3 L 0.9 L [place] # (Auto) 1.8 H 1.6 H Chloride 111 H Anion Gap 5.0 L BUN 27 H Glucose 106 H Phosphorus 4.6 H C-Reactive Protein 12.0 H Albumin 3.1 L Urine Protein Urine Occult Blood Ur Leukocyte Esterase Urine RBC Urine WBC Urine Bacteria Hyaline Casts 01/12/19 01/12/19 11:26 11:25 WBC RBC Hgb Hct RDW Plt Count MPV Gran % Lymph % (Auto) [place] % (Auto) Gran # Lymph # (Auto) [place] # (Auto) Chloride Anion Gap BUN 29 H Glucose 201 H Phosphorus C-Reactive Protein 4.7 H Albumin Urine Protein 30 A Urine Occult Blood 0.03 A Ur Leukocyte Esterase 250 A Urine RBC 3 H Urine WBC > 182 H Urine Bacteria Many A Hyaline Casts 4 H Meds: Medications Acetaminophen (Tylenol) 650 mg PO Q6HP PRN PRN Reason: PAIN/FEVER > 101 Hydrocodone Bitart/Acetaminophen ([place] 5/325mg) 1 tab PO QHS PRN PRN Reason: pain Albuterol/Ipratropium (Duoneb) 3 ml NEB Q6HRT PRN PRN Reason: Bronchospasm Amlodipine Besylate (Norvasc) 5 mg PO QDAY [facility] Atenolol (Tenormin) 12.5 mg PO HS [facility] Last Admin: 01/12/19 23:08 Dose: Not Given Documented by: Ceftriaxone Sodium (Rocephin) 1 gm IV Q24H [facility] Clopidogrel Bisulfate (Plavix) 75 mg PO QDAY [facility] Dextrose (Dextrose 50%) 0 ml IV UD PRN PRN Reason: Hypoglycemia Diagnostic Test (Pha) (Accu-Chek) 1 each FS [facility] Last Admin: 01/13/19 06:53 Dose: 1 each Documented by: Docusate Sodium (Colace) 100 mg PO BID [facility] Last Admin: 01/12/19 23:09 Dose: 100 mg Documented by: Enoxaparin Sodium (Lovenox) 40 mg SQ DAILY [facility] Famotidine (Pepcid) 20 mg PO BID [facility] Last Admin: 01/12/19 23:13 Dose: 20 mg Documented by: Glipizide (Glucotrol) 10 mg PO QHS [facility] Last Admin: 01/12/19 23:13 Dose: 10 mg Documented by: Glucose (Insta-Glucose) 15 gm PO PRN PRN PRN Reason: Hypoglycemia Sodium Chloride (Sodium Chloride 0.9%) 1,000 mls @ 125 mls/hr IV .Q8H [facility] Stop: 01/13/19 07:37 Last Admin: 01/12/19 23:06 Dose: 125 mls/hr Documented by: Insulin Human Lispro (Humalog) 0 unit SQ [facility]; Protocol Last Admin: 01/13/19 06:53 Dose: Not Given Documented by: Lactobacillus Rhamnosus (Culturelle) 1 cap PO BID [facility] Last Admin: 01/12/19 23:10 Dose: 1 cap Documented by: Lorazepam (Ativan) 1 mg PO QHS [facility] Last Admin: 01/12/19 23:13 Dose: 1 mg Documented by: Losartan Potassium (Cozaar) 50 mg PO QDAY [facility] Methocarbamol (Robaxin) 500 - 1,000 mg PO Q6HP PRN PRN Reason: pain Ondansetron HCl (Zofran) 4 mg IV Q6HP PRN PRN Reason: Nausea And Vomiting Last Admin: 01/12/19 17:21 Dose: 4 mg Documented by: Pregabalin (Lyrica) 450 mg PO BID [facility] Last Admin: 01/12/19 23:13 Dose: 450 mg Documented by: Prochlorperazine (Compazine) 5 mg IV Q4HP PRN PRN Reason: Nausea And Vomiting Senna (Senokot) 2 tab PO HS PRN PRN Reason: Constipation Sitagliptin Phosphate (Januvia) 100 mg PO DAILY [facility] Sodium Chloride (Saline Flush) 10 ml IV Q8 [facility] Last Admin: 01/13/19 06:28 Dose: Not Given Documented by: Trazodone HCl (Desyrel) 300 mg PO QHS [facility] Last Admin: 01/12/19 23:14 Dose: Not Given Documented by: Medical - PN: A/P - Time Spent With Patient Total time spent is greater than 50% in coordination of care (as documented) at patient's floor/unit and/or counseling patient: - Narrative A/P Narrative: A: *UTI (GNB): *Encephalopathy, metabolic: 2/2 above -CT brain with generalized atrophy was apparent frontal lobes. Patchy areas of chronic ischemic disease most prominent in the frontal lobe *Volume depletion: *Diabetes: *h/o CVA: On Plavix, does not tolerate aspirin *CAD: *HTN/HLD: *Depression/anxiety: *GERD: * * P: -IVF -Rocephin, zyvox started pending UC (h/o VRE UTI) -Follow-up CRP -SSI -Continue home cardiac medications -ABG/Ammonia pending -PT/OT -ppx: Lovenox/home PPI Full code Medical - PN: Qual - VTE Deep Vein Thrombosis/Pulmonary Embolism Present on Admission: No
[2019-01-13] MEDS ORDERED: LINEZOLID 600 MG/300 ML BAG IV SCH (08:45)
[2019-01-13] MEDS ORDERED: cefTRIAXone 1 GM in DEXTROSE 5% IN WATER 50 ML IV SCH (09:00)
[2019-01-13] MEDS ORDERED: LORazepam 1 MG TABLET PO PRN (09:12)
[2019-01-13] MEDS: amLODIPine 5 MG TABLET PO SCH (10:28)
[2019-01-13] MEDS: LOSARTAN 50 MG TABLET PO SCH (10:28)
[2019-01-13] MEDS: CLOPIDOGREL 75 MG TABLET PO SCH (10:28)
[2019-01-13] MEDS: LACTOBACILLUS 1 CAPSULE PO SCH ×2 (10:28→22:58)
[2019-01-13] MEDS: DOCUSATE SODIUM 100 MG CAPSULE PO SCH ×2 (10:28→22:58)
[2019-01-13] MEDS: LINEZOLID 600 MG TABLET PO SCH ×2 (10:28→22:58)
[2019-01-13] MEDS: sitaGLIPtin 100 MG TABLET PO SCH (10:28)
[2019-01-13] MEDS: FAMOTIDINE 20 MG TABLET PO SCH ×2 (10:28→22:56)
[2019-01-13] MEDS: cefTRIAXone 1 GM VIAL IV SCH (10:29)
[2019-01-13] MEDS: PREGABALIN 150 MG CAPSULE PO SCH (11:21)
[2019-01-13] MEDS: ENOXAPARIN 40 MG/0.4 ML SYRINGE SQ SCH (11:28)
[2019-01-13] MEDS: ATENOLOL 50 MG TABLET PO SCH (22:56)
[2019-01-13] MEDS: glipiZIDE 5 MG TABLET PO SCH (22:56)
[2019-01-14 05:41] LABS: Mean Cell Volume 87.6 fL (80.0-100.0); Mean Corpuscular HGB Conc 32.7 g/dL (31.0-36.0); Platelet Count 133 K/mcL (140-440); RBC 3.45 M/mcL (4.00-5.20); Red Cell Distribution Width 15.5 % (11.5-14.5)
[2019-01-14 05:58] LABS: C-Reactive Protein 9.2 mg/dl (0.0-0.8)
[2019-01-14 06:00] LABS: ALT/SGPT 10 U/l (0-40); Albumin 2.9 gm/dL (3.2-5.2); Albumin/Globulin Ratio 0.9 (1.0-2.3); Alkaline Phosphatase 76 U/L (39-117); Bilirubin,Direct < 0.2 mg/dL (0.0-0.3); Blood Urea Nitrogen 17 mg/dl (8-23); Gamma Glutamyl Transpeptidase 17 U/L (5-36); Uric Acid 5.6 mg/dL (2.5-8.0)
--- NOTE | 2019-01-14 06:43 | Internal Med Progress Note ---
Medical - PN: Subj Patient information: Note initiated : 01/14/19 at 6:39 am Service Date, if different from initiated Date: [] Patient: Izzy Casey a 73 y/o F admitted on 01/12/19 for decreased LOC. Chief Complaint: [] Interval history: Ms. Casey is a 73 year old F Presents the ED with decreased level of consciousness. She was found by her gastroenterology technician with dried vomit on her chest while she was in bed. She was less responsive. In the ED she was lethargic as he had a leukocytosis, and urine consistent with signs of urinary tract infection. She had developed elevated CRP but lactate was okay she had dry mucous membranes. Chest x-ray was okay and CT brain showed chronic changes but nothing acute urinalysis with hyaline casts WBCs leukocyte esterase. Denies any cough chest pain or shortness of breath. History is of difficult to obtain given her lethargy and slow response to questions. She falls asleep easily. She was too weak to stand today. She did realize she had nausea vomiting last night. But no nausea vomiting this morning She was in her usual state of health last night per gastroenterology technician, per notes. 01/13 Patient quite lethargic when I visited her this morning. Nurse notes she was m ore awake this morning. Although she appears like she was when I saw her in the ED. he does somewhat arouse to loud voice but then falls asleep again. She does follow commands. Unable to get review of systems as she is not verbalizing. 01/14 Doing much better. Sitting up eating breakfast. Had a good night. She did say she had a hard time sleeping because of noise. Has a headache but denies any shortness of breath chest pain nausea vomiting or fever. Review of Systems: denies fever/chills/nausea/vomiting/chest or abdominal pain/cough/dyspnea/diarrhea. Otherwise see above. - Constitutional Vitals: Vital Signs Temp Pulse Resp BP Pulse Ox 98 F 65 18 121/67 92 01/14/19 04:00 01/14/19 04:00 01/14/19 04:00 01/14/19 04:00 01/14/19 04:00 Period Temp Pulse Resp BP Sys/Paige Pulse Ox Last 24 Hr 97 F-98 F 65-70 11-20 121-144/58-75 92-98 Intake and Output 01/13/19 01/14/19 01/14/19 21:59 05:59 13:59 Intake Total 400 Output Total 5 8 Balance -5 392 Weight 97.749 kg Intake & Output: Intake & Output 01/13/19 01/14/19 01/14/19 21:59 05:59 13:59 Intake Total 400 Output Total 5 8 Balance -5 392 Weight 97.749 kg Intake: Oral 400 Output: # of times incontinent of urine 5 8 Other: Urine Color Straw Urine Odor Normal Exam: General: Alert, awake, no acute distress,obese Eyes/N/T: EOMI, Head/Neck: neck supple, CV: RRR, 3/6 SM, Pulm: Clear b/l, no wheezing/rhonchi/rales Abd: soft, nontender, +BS x4 Ext: no clubbing/cyanosis. Trace bilateral lower extremity edema Neuro: Alert and awake no focal deficits moves all extremities Skin: warm/dry Medical - PN: Obj Da - Labs CBC & Chem 7: 01/14/19 04:00 01/14/19 04:00 Labs: Abnormal Lab Results 01/14/19 01/14/19 01/14/19 04:00 04:00 04:00 WBC RBC 3.45 L Hgb 9.9 L Hct 30.2 L RDW 15.5 H Plt Count 133 L MPV 11.2 H Gran % Lymph % (Auto) [place] % (Auto) Gran # Lymph # (Auto) [place] # (Auto) Chloride Anion Gap BUN Glucose 53 L Phosphorus 2.2 L C-Reactive Protein 9.2 H Albumin 2.9 L Albumin/Globulin Ratio 0.9 L Urine Protein Urine Occult Blood Ur Leukocyte Esterase Urine RBC Urine WBC Urine Bacteria Hyaline Casts 01/13/19 01/13/19 01/12/19 04:12 04:11 11:26 WBC 13.3 H 14.3 H RBC 3.45 L 3.92 L Hgb 9.8 L 11.2 L Hct 30.4 L 34.2 L RDW 15.9 H 15.4 H Plt Count 133 L MPV 11.0 H 10.9 H Gran % 82.9 H Lymph % (Auto) 9.8 L 6.1 L [place] % (Auto) 13.5 H Gran # 10.2 H 11.9 H Lymph # (Auto) 1.3 L 0.9 L [place] # (Auto) 1.8 H 1.6 H Chloride 111 H Anion Gap 5.0 L BUN 27 H Glucose 106 H Phosphorus 4.6 H C-Reactive Protein 12.0 H Albumin 3.1 L Albumin/Globulin Ratio Urine Protein Urine Occult Blood Ur Leukocyte Esterase Urine RBC Urine WBC Urine Bacteria Hyaline Casts 01/12/19 01/12/19 11:26 11:25 WBC RBC Hgb Hct RDW Plt Count MPV Gran % Lymph % (Auto) [place] % (Auto) Gran # Lymph # (Auto) [place] # (Auto) Chloride Anion Gap BUN 29 H Glucose 201 H Phosphorus C-Reactive Protein 4.7 H Albumin Albumin/Globulin Ratio Urine Protein 30 A Urine Occult Blood 0.03 A Ur Leukocyte Esterase 250 A Urine RBC 3 H Urine WBC > 182 H Urine Bacteria Many A Hyaline Casts 4 H Meds: Medications Acetaminophen (Tylenol) 650 mg PO Q6HP PRN PRN Reason: PAIN/FEVER > 101 Last Admin: 01/13/19 20:51 Dose: 650 mg Documented by: Hydrocodone Bitart/Acetaminophen ([place] 5/325mg) 1 tab PO QHS PRN PRN Reason: pain Albuterol/Ipratropium (Duoneb) 3 ml NEB Q6HRT PRN PRN Reason: Bronchospasm Amlodipine Besylate (Norvasc) 5 mg PO QDAY [facility] Last Admin: 01/13/19 10:28 Dose: 5 mg Documented by: Atenolol (Tenormin) 12.5 mg PO HS [facility] Last Admin: 01/13/19 22:56 Dose: 12.5 mg Documented by: Ceftriaxone Sodium (Rocephin) 1 gm IV Q24H [facility] Last Admin: 01/13/19 10:29 Dose: 1 gm Documented by: Clopidogrel Bisulfate (Plavix) 75 mg PO QDAY [facility] Last Admin: 01/13/19 10:28 Dose: 75 mg Documented by: Dextrose (Dextrose 50%) 0 ml IV UD PRN PRN Reason: Hypoglycemia Diagnostic Test (Pha) (Accu-Chek) 1 each FS [facility] Last Admin: 01/13/19 22:53 Dose: 1 each Documented by: Docusate Sodium (Colace) 100 mg PO BID [facility] Last Admin: 04/14/19 22:58 Dose: 100 mg Documented by: Enoxaparin Sodium (Lovenox) 40 mg SQ DAILY [facility] Last Admin: 01/13/19 11:28 Dose: 40 mg Documented by: Famotidine (Pepcid) 20 mg PO BID [facility] Last Admin: 01/13/19 22:56 Dose: 20 mg Documented by: Glipizide (Glucotrol) 10 mg PO QHS [facility] Last Admin: 01/13/19 22:56 Dose: 10 mg Documented by: Glucose (Insta-Glucose) 15 gm PO PRN PRN PRN Reason: Hypoglycemia Insulin Human Lispro (Humalog) 0 unit SQ [facility]; Protocol Last Admin: 01/13/19 23:18 Dose: 2 units Documented by: Lactobacillus Rhamnosus (Culturelle) 1 cap PO BID [facility] Last Admin: 01/13/19 22:58 Dose: 1 cap Documented by: Linezolid (Zyvox) 600 mg PO BID [facility] Last Admin: 01/13/19 22:58 Dose: 600 mg Documented by: Lorazepam (Ativan) 1 mg PO QHS PRN PRN Reason: Anxiety Losartan Potassium (Cozaar) 50 mg PO QDAY [facility] Last Admin: 01/13/19 10:28 Dose: 50 mg Documented by: Methocarbamol (Robaxin) 500 - 1,000 mg PO Q6HP PRN PRN Reason: pain Ondansetron HCl (Zofran) 4 mg IV Q6HP PRN PRN Reason: Nausea And Vomiting Last Admin: 01/12/19 17:21 Dose: 4 mg Documented by: Pregabalin (Lyrica) 150 mg PO BID [facility] Prochlorperazine (Compazine) 5 mg IV Q4HP PRN PRN Reason: Nausea And Vomiting Senna (Senokot) 2 tab PO HS PRN PRN Reason: Constipation Sitagliptin Phosphate (Januvia) 100 mg PO DAILY [facility] Last Admin: 01/13/19 10:28 Dose: 100 mg Documented by: Sodium Chloride (Saline Flush) 10 ml IV Q8 [facility] Last Admin: 01/13/19 22:59 Dose: 10 ml Documented by: Medical - PN: A/P - Time Spent With Patient Total time spent is greater than 50% in coordination of care (as documented) at patient's floor/unit and/or counseling patient: - Narrative A/P Narrative: A: *UTI (GNB): *Sepsis: 2/2 above - leukocytosis improved, CRP now improving *Encephalopathy, metabolic: 2/2 above, RESolved -CT brain with generalized atrophy was apparent frontal lobes. Patchy areas of chronic ischemic disease most prominent in the frontal lobe -IMProving *Volume depletion: resolved *Diabetes: *h/o CVA: On Plavix, does not tolerate aspirin *CAD: *HTN/HLD: *Depression/anxiety: *GERD: *anemia, chronic P: -IVF -Rocephin, zyvox started pending final UC (h/o VRE UTI) -Follow-up CRP -SSI -Continue home cardiac medications - -PT/OT -ppx: Lovenox/home PPI Medical - PN: Qual - VTE Deep Vein Thrombosis/Pulmonary Embolism Present on Admission: No
[2019-01-14 06:52] LABS: Band Neutrophils % 4 % (0-10); Basophils % (Manual) 1 % (0-2); Eosinophils % (Manual) 1 % (0-7); Lymphocytes % 12 % (15-49); Monocytes % (Manual) 16 % (1-12); Platelet Estimate NORMAL (NORMAL); RBC Morphology NORMAL (NORMAL); Segmented Neutrophils % 66 % (38-78)
[2019-01-14] MEDS: INSULIN LISPRO 1 UNIT/0.01 ML UNIT SQ SCH ×4 (07:28→21:02)
[2019-01-14] MEDS: 0.9 % SODIUM CHLORIDE 10 ML SYRINGE IV SCH ×3 (07:28→21:08)
[2019-01-14] MEDS: FAMOTIDINE 20 MG TABLET PO SCH ×2 (08:24→21:04)
[2019-01-14] MEDS: LOSARTAN 50 MG TABLET PO SCH (08:24)
[2019-01-14] MEDS: LACTOBACILLUS 1 CAPSULE PO SCH ×2 (08:24→21:04)
[2019-01-14] MEDS: DOCUSATE SODIUM 100 MG CAPSULE PO SCH ×2 (08:24→21:04)
[2019-01-14] MEDS: LINEZOLID 600 MG TABLET PO SCH ×2 (08:24→21:04)
[2019-01-14] MEDS: amLODIPine 5 MG TABLET PO SCH (08:24)
[2019-01-14] MEDS: sitaGLIPtin 100 MG TABLET PO SCH (08:24)
[2019-01-14] MEDS: CLOPIDOGREL 75 MG TABLET PO SCH (08:24)
[2019-01-14] MEDS: ENOXAPARIN 40 MG/0.4 ML SYRINGE SQ SCH (08:25)
--- NOTE | 2019-01-14 10:50 | Discharge Summary ---
Medical - DS: Prov Patient information: Note initiated : 01/14/19 at 10:47 am Service Date, if different from initiated Date: [] Patient: Izzy Casey 73 y/o F admitted on 01/12/19 for decreased LOC. Chief Complaint: [] Date of admission: 01/12/19 15:43 Discharge date: 01/15/19 Primary care physician: Rob Pires Consults: 01/12/19 13:00 Consult to Physician [CONS] Stat Comment: Consulting Provider: Alexi Bentley Reason For Exam: Physician to Consult Medical - DS: Meds - Discharge Medications Prescriptions: Ciprofloxacin HCl [Cipro] 500 mg PO BID #8 tab Active and Home Medications: Home Medications amlodipine 5 mg tablet 5 mg PO QDAY #90 tab 08/02/18 [Rx Confirmed 01/12/19 Last Taken 11/12/18 08:00] clopidogrel 75 mg tablet 75 mg PO QDAY #90 tab 08/02/18 [Rx Confirmed 01/12/19 Last Taken 11/12/18 08:00] dexlansoprazole 30 mg capsule,biphase delayed release 30 mg PO QDAY #90 cap 08/02/18 [Rx Confirmed 01/12/19 Last Taken Unknown] loratadine 10 mg tablet 10 mg PO QDAY PRN #90 tab 08/02/18 [Rx Confirmed 01/12/19 Last Taken Unknown] lorazepam 1 mg tablet 1 mg PO QHS tab 08/02/18 [History Confirmed 01/12/19 Last Taken Unknown] losartan 50 mg tablet 50 mg PO QDAY #90 tab 08/02/18 [Rx Confirmed 01/12/19 Last Taken 11/12/18 08:00] sennosides 8.6 mg tablet 8.6 mg PO QHS PRN #90 tab 08/02/18 [Rx Confirmed 12/31 12/18 Last Taken Unknown] methocarbamol 500 mg tablet See Rx Instructions PO Q6H PRN #30 tab 09/19/18 [Rx Confirmed 01/12/19 Last Taken Unknown] pregabalin 300 mg capsule 300 mg PO BID #60 cap 10/11/18 [Rx Confirmed 01/12/19 Last Taken 11/12/18 08:00] albuterol sulfate HFA 90 mcg/actuation aerosol inhaler 2 puff INHALATION Q6H PRN #8.5 g 10/12/18 [Rx Confirmed 01/12/19 Last Taken Unknown] trazodone 150 mg tablet 300 mg PO QHS #180 tab 10/18/18 [Rx Confirmed 01/12/19 Last Taken 11/11/18 21:00] atenolol 25 mg tablet 12.5 mg PO QHS #45 tab 11/12/18 [Rx Confirmed 01/12/19 Last Taken 11/11/18 21:00] Ferrous Sulfate 325 mg PO QHS 11/13/18 [History Confirmed 01/12/19 Last Taken 11/11/18 21:00] Furosemide [Lasix] 20 mg PO QAM 11/13/18 [History Confirmed 01/12/19 Last Taken 11/12/18 08:00] Pregabalin [Lyrica] 150 mg PO BID 11/13/18 [History Confirmed 01/12/19 Last Taken Unknown] glipiZIDE [Glucotrol] 10 mg PO QHS 11/13/18 [History Confirmed 01/12/19 Last Taken 11/11/18 17:00] sitaGLIPtin [Januvia] 100 mg PO DAILY 11/13/18 [History Confirmed 01/12/19 Last Taken 11/12/18 08:00] Lactobacillus [Culturelle] 1 cap PO BID #60 cap 11/18/18 [Rx Confirmed 01/12/19 Last Taken Unknown] hydrocodone 5 mg-acetaminophen 325 mg tablet 1 tab PO QHS PRN #90 tab 12/13/18 [Rx Confirmed 01/12/19 Last Taken Unknown] simvastatin 10 mg tablet 10 mg PO QHS #90 tab 01/14/19 [Rx Last Taken Unknown] Home Medications amlodipine 5 mg tablet 5 mg PO QDAY #90 tab 08/02/18 [Rx Confirmed 01/12/19 Last Taken 11/12/18 08:00] clopidogrel 75 mg tablet 75 mg PO QDAY #90 tab 08/02/18 [Rx Confirmed 01/12/19 Last Taken 11/12/18 08:00] dexlansoprazole 30 mg capsule,biphase delayed release 30 mg PO QDAY #90 cap 08/02/18 [Rx Confirmed 01/12/19 Last Taken Unknown] loratadine 10 mg tablet 10 mg PO QDAY PRN #90 tab 08/02/18 [Rx Confirmed 01/12/19 Last Taken Unknown] lorazepam 1 mg tablet 1 mg PO QHS tab 08/02/18 [History Confirmed 01/12/19 Last Taken Unknown] losartan 50 mg tablet 50 mg PO QDAY #90 tab 08/02/18 [Rx Confirmed 01/12/19 Last Taken 11/12/18 08:00] sennosides 8.6 mg tablet 8.6 mg PO QHS PRN #90 tab 08/02/18 [Rx Confirmed 01/12/19 Last Taken Unknown] methocarbamol 500 mg tablet See Rx Instructions PO Q6H PRN #30 tab 09/19/18 [Rx Confirmed 01/12/19 Last Taken Unknown] pregabalin 300 mg capsule 300 mg PO BID #60 cap 10/11/18 [Rx Confirmed 01/12/19 Last Taken 11/12/18 08:00] albuterol sulfate HFA 90 mcg/actuation aerosol inhaler 2 puff INHALATION Q6H PRN #8.5 g 10/12/18 [Rx Confirmed 01/12/19 Last Taken Unknown] trazodone 150 mg tablet 300 mg PO QHS #180 tab 10/18/18 [Rx Confirmed 01/12/19 Last Taken 11/11/18 21:00] atenolol 25 mg tablet 12.5 mg PO QHS #45 tab 11/12/18 [Rx Confirmed 01/12/19 Last Taken 11/11/18 21:00] Ferrous Sulfate 325 mg PO QHS 11/13/18 [History Confirmed 01/12/19 Last Taken 11/11/18 21:00] Furosemide [Lasix] 20 mg PO QAM 11/13/18 [History Confirmed 01/12/19 Last Taken 11/12/18 08:00] Pregabalin [Lyrica] 150 mg PO BID 11/13/18 [History Confirmed 01/12/19 Last Taken Unknown] glipiZIDE [Glucotrol] 10 mg PO QHS 11/13/18 [History Confirmed 01/12/19 Last Taken 11/11/18 17:00] sitaGLIPtin [Januvia] 100 mg PO DAILY 11/13/18 [History Confirmed 01/12/19 Last Taken 11/12/18 08:00] Lactobacillus [Culturelle] 1 cap PO BID #60 cap 11/18/18 [Rx Confirmed 01/12/19 Last Taken Unknown] hydrocodone 5 mg-acetaminophen 325 mg tablet 1 tab PO QHS PRN #90 tab 12/13/18 [Rx Confirmed 01/12/19 Last Taken Unknown] Ciprofloxacin HCl [Cipro] 500 mg PO BID #8 tab 01/14/19 [Rx Last Taken Unknown] simvastatin 10 mg tablet 10 mg PO QHS #90 tab 01/14/19 [Rx Last Taken Unknown] Medical - DS: Hosp Hospital course: Ms. Casey is a 73 year old F Presents the ED with decreased level of consciousness. She was found by her car etaker with dried vomit on her chest while she was in bed. She was less responsive. In the ED she was lethargic as he had a leukocytosis, and urine consistent with signs of urinary tract infection. She had developed elevated CRP but lactate was okay she had dry mucous membranes. Chest x-ray was okay and CT brain showed chronic changes but nothing acute urinalysis with hyaline casts WBCs leukocyte esterase. Denies any cough chest pain or shortness of breath. History is of difficult to obtain given her lethargy and slow response to questions. She falls asleep easily. She was too weak to stand today. She did realize she had nausea vomiting last night. But no nausea vomiting this morning She was in her usual state of health last night per purler, per notes. 01/13 Patient quite lethargic when I visited her this morning. Nurse notes she was more awake this morning. Although she appears like she was when I saw her in the ED. he does somewhat arouse to loud voice but then falls asleep again. She does follow commands. Unable to get review of systems as she is not verbalizing. 01/14 Doing much better. Sitting up eating breakfast. Had a good night. She did say she had a hard time sleeping because of noise. Has a headache but denies any shortness of breath chest pain nausea vomiting or fever. 01/15 Doing well. No overnight events. Stable for discharge Discharge diagnosis: Gram-negative UTI encephalopathy sepsis volume depletion diabetes Secondary discharge diagnosis: History of stroke CAD hypertension depression anxiety GERD chronic anemia - Time Spent with Patient Total time spent providing and/or coordinating discharge services: Greater than 30 minutes Medical - DS: Exam - Constitutional Vitals: Vital Signs Temp Pulse Resp BP BP Pulse Ox 01/14/19 08:00 97.3 F 69 16 138/72 91 01/14/19 04:00 98 F 65 18 121/67 92 01/13/19 23:28 97.8 F 65 12 144/58 94 01/13/19 19:39 97.8 F 70 12 132/58 94 01/13/19 16:00 97.5 F 18 126/60 95 01/13/19 10:55 97 F 20 124/62 96 Intake and Output 01/13/19 01/14/19 01/14/19 21:59 05:59 13:59 Intake Total 400 Output Total 5 8 2 Balance -5 392 -2 Intake: Oral 400 Output: # of times incontinent of urine 5 8 2 Other: Urine Color Straw Urine Odor Normal Stool Size Smear Stool Color Brown Stool Consistency Soft # Bowel Movements 1 # of times incontinent of 1 Bowels Weight 97.749 kg Medical - DS: Data Labs on day of discharge: Labs from last 24 hours 01/14/19 01/14/19 01/14/19 04:00 04:00 04:00 WBC 9.0 RBC 3.45 L Hgb 9.9 L Hct 30.2 L MCV 87.6 MCH 28.6 MCHC 32.7 RDW 15.5 H Plt Count 133 L MPV 11.2 H Total Counted 100 Seg Neutrophils % 66 Band Neutrophils % 4 Lymphocytes % 12 L Monocytes % (Manual) 16 H Eosinophils % (Manual) 1 Basophils % (Manual) 1 Platelet Estimate Normal RBC Morphology Normal Sodium 142 Potassium 4.6 Chloride 107 Carbon Dioxide 26 Anion Gap 9.0 BUN 17 Creatinine 0.7 GFR Calculation 87 Glucose 53 L Uric Acid 5.6 Calcium 9.3 Phosphorus 2.2 L Magnesium 1.8 Total Bilirubin 0.3 Direct Bilirubin < 0.2 GGT 17 AST 12 ALT 10 Alkaline Phosphatase 76 Lactate Dehydrogenase 145 C-Reactive Protein 9.2 H Total Protein 6.0 Albumin 2.9 L Globulin 3.1 Albumin/Globulin Ratio 0.9 L Triglycerides 127 Preliminary micro results at discharge 01/12/19 11:45 Urine Culture - Preliminary Urine - Clean Void Mid-Stream Gram negative bacillus Gram negative bacillus#2 Medical - DS: A/P - Patient/Caregiver Discharge Instructions Activity: as per physical therapy Diet: Consistent Carbohydrate Prescriptions: Ciprofloxacin HCl [Cipro] 500 mg PO BID #8 tab - Follow up Plan Follow up with: Rob Pires DO [Primary Care Provider] - Disposition: Home Health Service Prognosis: Fair Rehab Potential: Fair Overall status at discharge: patient is back to baseline Medical - DS: Qual - VTE Deep Vein Thrombosis/Pulmonary Embolism Present on Admission: No
[2019-01-14] MEDS: cefTRIAXone 1 GM VIAL IV SCH (13:53)
[2019-01-14] MEDS ORDERED: diphenhydrAMINE 25 MG CAPSULE PO PRN (18:43)
[2019-01-14] MEDS ORDERED: traZODone HCL 150 MG TABLET PO SCH (21:00)
[2019-01-14] MEDS: ATENOLOL 50 MG TABLET PO SCH (21:04)
[2019-01-14] MEDS: glipiZIDE 5 MG TABLET PO SCH (21:04)
[2019-01-15] MEDS: 0.9 % SODIUM CHLORIDE 10 ML SYRINGE IV SCH (05:59)
[2019-01-15] MEDS: INSULIN LISPRO 1 UNIT/0.01 ML UNIT SQ SCH ×2 (07:08→12:58)
[2019-01-15] MEDS: amLODIPine 5 MG TABLET PO SCH (08:56)
[2019-01-15] MEDS: FAMOTIDINE 20 MG TABLET PO SCH (08:56)
[2019-01-15] MEDS: LINEZOLID 600 MG TABLET PO SCH (08:56)
[2019-01-15] MEDS: DOCUSATE SODIUM 100 MG CAPSULE PO SCH (08:57)
[2019-01-15] MEDS: LACTOBACILLUS 1 CAPSULE PO SCH (08:57)
[2019-01-15] MEDS: CLOPIDOGREL 75 MG TABLET PO SCH (08:57)
[2019-01-15] MEDS: ENOXAPARIN 40 MG/0.4 ML SYRINGE SQ SCH (08:57)
[2019-01-15] MEDS: sitaGLIPtin 100 MG TABLET PO SCH (08:57)
[2019-01-15] MEDS: LOSARTAN 50 MG TABLET PO SCH (08:57)
[2019-01-15] MEDS ORDERED: PREGABALIN 150 MG CAPSULE PO SCH (09:00)
[2019-01-15] MEDS: cefTRIAXone 1 GM VIAL IV SCH (09:20)
== END 2019-01-15 11:30 | disposition home health service (06) | DRG 871 ==
LOC: ED 10:05 → MEDSUR 15:41
PROVIDERS: ADMIT Internal Medicine; ATTEND Internal Medicine